=== PATIENT | male | born 1970 | race American Indian/Alaskan Native ===

== ENCOUNTER 2017-05-25 04:58 | Emergency (ER) | payer SELFPAY | END 2017-05-25 05:17 | disposition left against medical advice (07) | LOC: ED 04:58 | DX: R10.9 Unspecified abdominal pain (principal); Z53.21 Procedure and treatment not carried out due to patient leaving prior to being seen by health care provider ==

== ENCOUNTER 2017-05-25 07:04 | Emergency (ER) | payer OTHER ==
[2017-05-25] MEDS ORDERED: DILAUDID IV ONE (07:11)
[2017-05-25] MEDS ORDERED: TORADOL ONE (07:13)
[2017-05-25] MEDS ORDERED: DILAUDID IM ONE (07:14)
[2017-05-25] MEDS ORDERED: TORADOL IM ONE (07:14)
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
[2017-05-25] MEDS ORDERED: MORPHINE ONE (07:24)
[2017-05-25] MEDS ORDERED: HALDOL IM ONE (07:36)
[2017-05-25] MEDS ORDERED: MORPHINE IV ONE (07:36)
[2017-05-25 07:59] LABS: Anion Gap 24 mmol/L; Blood Urea Nitrogen 18 mg/dL (9-20); Calcium 9.2 mg/dL (8.4-10.2); Carbon Dioxide 18 mmol/L (22-30); Chloride 104.6 mmol/L (98-107); Glucose 112 mg/dL (75-100); Potassium 4.3 mmol/L (3.6-5.0); Sodium 142 mmol/L (137-145)
[2017-05-25 08:01] LABS: Mean Corpuscular HGB Conc 33 % (32-34); Mean Corpuscular Hemoglobin 31 pg (28-32); Mean Corpuscular Volume 94 fl (84-94); Platelet Count 207 K/mm3 (140-440); Red Blood Count 4.48 M/mm3 (3.65-5.03); Red Cell Distribution Width 13.8 % (13.2-15.2); White Blood Count 10.2 K/mm3 (4.5-11.0)
--- NOTE | 2017-05-25 08:27 | Cat Scan Report ---
FINAL REPORT PROCEDURE: CT ABDOMEN PELVIS WO CON TECHNIQUE: Computerized axial tomography of the abdomen and pelvis was performed without intravenous contrast. This study is performed without intravascular contrast material and its sensitivity for abdominal and pelvic pathology, including neoplasms, inflammation, abscess, free fluid, thrombosis, arterial dissection and infarction, is reduced compared with a contrast enhanced study. Oral contrast was not administered limiting evaluation of the bowel as well. HISTORY: flank pain COMPARISON: None FINDINGS: Visualized lower thorax: No significant abnormality. Liver: Normal size and attenuation. Spleen: Small 7.6 centimeters in maximal length. Gallbladder and biliary system: Normal. Pancreas: Normal. Adrenals: Normal. Kidneys: Normal. GI tract: Normal. Lymph nodes and mesentery: Normal. Vasculature: Normal. Bladder: Normal. Reproductive organs: Normal. Peritoneum: No free fluid. Musculoskeletal structures: Subtle right paracentral abdominal hernia containing fat, 9 millimeters in transverse diameter for example seen on series 2, image 110. Other: None. IMPRESSION: Subtle right anterior abdominal hernia containing fat. Smallish spleen.
[2017-05-25 11:10] LABS: Bilirubin,Urine NEG (Negative); Blood,Urine NEG (Negative); Ketones,Urine TR mg/dL (Negative); Leukocyte Esterase,Urine NEG (Negative); Nitrite,Urine NEG (Negative); Protein,Urine <15 mg/dL mg/dL (Negative); Urobilinogen,Urine < 2.0 mg/dL (<2.0)
[2017-05-25 13:12] VITALS: BP 157/64
== END 2017-05-25 12:50 | disposition home or self-care (01) ==
LOC: ED 07:04
DX: R10.9 Unspecified abdominal pain (principal); F17.210 Nicotine dependence, cigarettes, uncomplicated; J45.909 Unspecified asthma, uncomplicated; F12.90 Cannabis use, unspecified, uncomplicated; Z88.6 Allergy status to analgesic agent
CPT/HCPCS: 36415; 51702; 74176; 80048; 81001; 85027; 96372; 96374; 99285; J1170; J1630; J1885; J2270

== ENCOUNTER 2017-12-06 02:14 | Emergency (ER) | payer OTHER ==
[2017-12-06] MEDS ORDERED: ZOFRAN IV ONE (02:40)
[2017-12-06] MEDS ORDERED: MORPHINE IV ONE (02:40)
[2017-12-06] MEDS ORDERED: GEODON IM ONE (02:40)
[2017-12-06 02:49] VITALS: BP 150/88
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
== END 2017-12-06 06:26 | disposition home or self-care (01) ==
LOC: ED 02:14
DX: K31.84 Gastroparesis (principal); F17.200 Nicotine dependence, unspecified, uncomplicated
CPT/HCPCS: 96372; 96374; 96375; 99283; J2270; J2405; J3486

== ENCOUNTER 2020-12-07 11:08 | Emergency (ER) | payer OTHER ==
[2020-12-07 11:32] VITALS: BP 105/72
--- NOTE | 2020-12-07 11:37 | Event Note ---
ED Screening Note ED Screening Note: Patient presents for left-sided flank pain and left-sided abdominal pain that began at 4 AM this morning He states he has associated nausea and had 2 episodes of vomiting He has had this pain intermittently since before 2014 He reports it has been "awhile" since he has had the pain He denies any fever or diarrhea He states he had normal bowel movement this morning He reports a history of nephrolithiasis but scans in this emergency department has never shown nephrolithiasis He states he has seen a GI doctor around 2014 and had a EGD which he reports showed PUD He states that aspirin makes his stomach upset but otherwise has no true allergy This initial assessment/diagnostic orders/clinical plan/treatment(s) is/are subject to change based on patients health status, clinical progression and re- assessment by fellow clinical providers in the ED. Further treatment and workup at subsequent clinical providers discretion. Patient/guardian urged not to elope from the ED as their condition may be serious if not clinically assessed and managed. Initial orders include: Labs, UA
[2020-12-07] MEDS ORDERED: SODIUM CHLORIDE 0.9% 1000 ML 1,000 ML IV ONE (12:03)
[2020-12-07] MEDS ORDERED: PANTOPRAZOLE 40 MG INJ IV ONE (12:04)
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
[2020-12-07] MEDS ORDERED: MORPHINE 4 MG/1 ML INJ ONE (12:23)
[2020-12-07] MEDS ORDERED: ONDANSETRON 4 MG/2 ML INJ ONE (12:23)
[2020-12-07] MEDS ORDERED: MORPHINE 4 MG/1 ML INJ IV ONE (12:27)
[2020-12-07] MEDS ORDERED: ONDANSETRON 4 MG/2 ML INJ IV ONE (12:27)
--- NOTE | 2020-12-07 12:45 | Cat Scan Report ---
CT ABDOMEN AND PELVIS WITHOUT CONTRAST INDICATION / CLINICAL INFORMATION: ABDOMINAL PAIN/ left flank pain. TECHNIQUE: Axial CT images were obtained through the abdomen and pelvis without IV contrast. All CT scans at [facility] location are performed using CT dose reduction for ALARA by means of automated exposure control. COMPARISON: CT abdomen/pelvis dated 05/25/2017. FINDINGS: LOWER CHEST: No significant abnormality. LIVER: No significant abnormality. GALLBLADDER: No significant abnormality. PANCREAS: No significant abnormality. SPLEEN: No significant abnormality. ADRENALS: No significant abnormality. KIDNEYS / URETERS: No significant abnormality. No nephroureterolithiasis or obstructive uropathy. URINARY BLADDER: No significant abnormality. REPRODUCTIVE ORGANS: No significant abnormality. STOMACH / SMALL BOWEL: No significant abnormality. COLON: No significant abnormality. APPENDIX: No significant abnormality. PERITONEUM: No free fluid. No free air. No fluid collection. LYMPH NODES: No significant adenopathy. AORTA / ARTERIES: No significant abnormality. IVC / VEINS: No significant abnormality. SKELETAL SYSTEM: No significant abnormality. ADDITIONAL FINDINGS: None. IMPRESSION: 1. No acute abdominopelvic abnormality. Specifically, no nephroureterolithiasis or obstructive uropat hy. Signer Name: Chapo Ochoa MD Signed: 12/07/2020 12:40 PM Workstation Name: [id number]
[2020-12-07 13:37] LABS: Basophils % (Auto) 0.4 % (0.0-1.8); Hematocrit 42.4 % (35.5-45.6); Hemoglobin 14.3 gm/dl (11.8-15.2); Lymphocytes # (Auto) 1.1 K/mm3 (1.2-5.4); Lymphocytes % (Auto) 10.1 % (13.4-35.0); Mean Corpuscular HGB Conc 34 % (32-34); Mean Corpuscular Volume 95 fl (84-94); Monocytes # (Auto) 0.7 K/mm3 (0.0-0.8); Monocytes % (Auto) 6.2 % (0.0-7.3); Platelet Count 216 K/mm3 (140-440); Red Blood Count 4.48 M/mm3 (3.65-5.03); Red Cell Distribution Width 13.8 % (13.2-15.2)
[2020-12-07 13:54] LABS: Alanine Aminotransferase 20 units/L (7-56); Albumin 4.2 g/dL (3.9-5); BUN/Creatinine Ratio 10; Blood Urea Nitrogen 10 mg/dL (9-20); Calcium 9.3 mg/dL (8.4-10.2); Hemolysis Index 14
[2020-12-07] MEDS ORDERED: LIDOCAINE VISCOUS 2% 15 ML ORAL LIQD PO ONE (14:14)
[2020-12-07] MEDS ORDERED: ALUM-MAG HYDROXIDE-SIMETHICONE 200-200-20MG/5ML ORAL LIQD 30 ML PO ONE (14:14)
== END 2020-12-07 14:48 | disposition home or self-care (01) ==
LOC: ED 11:08
DX: R10.13 Epigastric pain (principal); J45.909 Unspecified asthma, uncomplicated; F17.200 Nicotine dependence, unspecified, uncomplicated; Z79.899 Other long term (current) drug therapy; Z88.6 Allergy status to analgesic agent
CPT/HCPCS: 36415; 74176; 80053; 83690; 85025; 96361; 96374; 96375; 99284; C9113; J2270; J2405; J7030

== ENCOUNTER 2021-01-18 12:51 | Inpatient (IN) | payer SELFPAY ==
[2021-01-18] MEDS ORDERED: HYDROmorphone 1 MG/1 ML INJ IV ONE ×2 (13:18→13:42)
[2021-01-18] MEDS ORDERED: SODIUM CHLORIDE 0.9% 1000 ML 1,000 ML IV ONE (13:18)
[2021-01-18] MEDS ORDERED: KETOROLAC 30 MG/1 ML INJ IV ONE (13:18)
[2021-01-18] MEDS ORDERED: ONDANSETRON 4 MG/2 ML INJ IV ONE (13:19)
[2021-01-18] MEDS ORDERED: IPRATROPIUM/ALBUTEROL SULFATE 3 ML AMPUL.NEB IH ONE (13:19)
[2021-01-18] MEDS ORDERED: PANTOPRAZOLE 40 MG INJ IV ONE (13:21)
[2021-01-18] MEDS ORDERED: AZITHROMYCIN/NS 500 MG/250 ML 500 MG/250 ML BAG IV ONE (14:05)
[2021-01-18] MEDS ORDERED: SODIUM CHLORIDE 0.9% 1000 ML IV SOLN IV ONE (14:05)
[2021-01-18] MEDS ORDERED: cefTRIAXone/NS 2 GM/100 ML 2 GM/100 ML BAG IV ONE (14:05)
[2021-01-18] MEDS ORDERED: dexAMETHasone 20 MG/5 ML VIAL IV ONE (14:06)
--- NOTE | 2021-01-18 14:12 | XRay Report ---
CHEST 1 VIEW 01/18/2021 1:04 PM INDICATION / CLINICAL INFORMATION: dyspnea. COMPARISON: None available. FINDINGS: SUPPORT DEVICES: None. HEART / MEDIASTINUM: No significant abnormality. LUNGS / PLEURA: Diffuse opacities are seen in bilateral lower lungs extending from the tyler No pneumo thorax. ADDITIONAL FINDINGS: No significant additional findings. IMPRESSION: 1. Bilateral lower lung opacities. Signer Name: Dixon Yao MD Signed: 01/18/2021 2:08 PM Workstation Name: [id number]
[2021-01-18 14:45] LABS: Hematocrit 40.5 % (35.5-45.6); Hemoglobin 13.7 gm/dl (11.8-15.2); Mean Corpuscular HGB Conc 34 % (32-34); Mean Corpuscular Volume 94 fl (84-94); Platelet Count 208 K/mm3 (140-440); Red Cell Distribution Width 13.7 % (13.2-15.2)
[2021-01-18] MEDS: HYDROmorphone 1 MG/1 ML INJ IV PRN ×2 (15:10→21:50)
[2021-01-18 15:27] LABS: Alanine Aminotransferase 98 units/L (7-56); Albumin 3.8 g/dL (3.9-5); BUN/Creatinine Ratio 17; Blood Urea Nitrogen 25 mg/dL (9-20); Calcium 8.4 mg/dL (8.4-10.2); Hemolysis Index 33
--- NOTE | 2021-01-18 17:10 | Cat Scan Report ---
CTA CHEST WITH CONTRAST INDICATION / CLINICAL INFORMATION: Hypoxia. TECHNIQUE: Axial CT images were obtained through the chest after injection of IV contrast. 3 plane IL P and/or 3D reconstructions were produced. All CT scans at this location are performed using CT dose reduction for ALARA by means of automated exposure control. COMPARISON: None available. FINDINGS: PULMONARY ARTERIES: Not well evaluated due to arterial phase imaging. THORACIC AORTA: Thoracic aorta is normal in caliber. No evidence of dissection. HEART: No cardiac enlargement. No pericardial effusion. ADENOPATHY: Shotty left paratracheal and bilateral hilar lymph nodes are likely reactive. LUNGS/PLEURA: There is mild paraseptal emphysema in the apices. Extensive ground glass opacities are present throughout the lungs, preferentially involving the lung bases, with associated interlobular s eptal thickening. There is relative sparing of the upper lungs with preferential subpleural involveme nt. There are patchy airspace consolidation is noted within the right lower lobe. No pleural effusion or pneumothorax. ADDITIONAL FINDINGS: None. UPPER ABDOMEN: Findings of the upper abdomen are detailed centrally. SKELETAL STRUCTURES: No significant osseous abnormality. IMPRESSION: Extensive basilar predominant groundglass opacities with interlobular septal thickening and developin g airspace consolidation of the right lower lobe. Findings are somewhat nonspecific. Differential inc ludes pulmonary alveolar proteinosis, pulmonary edema, diffuse alveolar hemorrhage, or atypical infec tion, to include pneumocystis and mycoplasma. Signer Name: Ángel Macias MD Signed: 01/18/2021 5:06 PM Workstation Name: [id number]
--- NOTE | 2021-01-18 17:14 | Cat Scan Report ---
CT abdomen pelvis wo con INDICATION: left flank pain. COMPARISON: None TECHNIQUE: Abdominal and pelvic CT exam performed. All CT scans at this location are performed using CT dose reduction for ALARA by means of automated exposure control. FINDINGS: CT ABDOMEN and PELVIS: Lung Bases: Diffuse groundglass opacities with associated interlobular septal thickening with more fo yousif consolidation seen within the right lower lobe Liver: No significant abnormality. Biliary: No significant abnormality. Spleen: No significant abnormality. Pancreas: No significant abnormality. Adrenals: No significant abnormality. Kidneys: No significant abnormality. Lymphatics: No lymphadenopathy. Vasculature: No significant abnormality. Bowel: No significant abnormality. Normal appendix. Pelvis: No significant abnormality. Osseous Structures: No aggressive osseous lesion. Additional Findings: None IMPRESSION: 1. No significant abnormality of the abdomen or pelvis. 2. Interstitial thickening with ground glass opacities which is nonspecific. But differential conside ration include pulmonary alveolar proteinosis, increased capillary permeability edema(ARDS), atypical infections including pneumocystis and mycoplasma, and diffuse alveolar hemorrhage. Signer Name: Lexx Marquez MD Signed: 01/18/2021 5:10 PM Workstation Name: [id number]
[2021-01-18] MEDS ORDERED: ACETAMINOPHEN 325 MG TAB PO PRN ×2 (17:19→17:24)
--- NOTE | 2021-01-18 17:19 | History and Physical Report ---
History of Present Illness Chief complaint: My stomach is bothering me History of present illness: 50 YO Male with PUD, Asthma, Nephrolithiasis, Nicotine Dependence presents to ED for evaluation. Pt reports "My left side hurts". Pt states that he has experienced left flank pain over the past 2 weeks with worsening symptoms over the past several days. EMS was notified and upon arrival the patient was found to be in distress and subsequently transported to [facility] for further care and evaluation of the aforementioned symptoms. The patient was seen and evaluated in the emergency department. All lab and imaging studies reviewed. The patient was found to have a pulse oximetry of 84% on room air which is consistent with acute hypoxemic respiratory failure. The patient was placed on submental oxygen with improvement in symptoms. The patient was also found to have bilateral pneumonia, sepsis, acute kidney injury. Patient admitted to medical floor and initiated on sepsis protocol as well as pneumonia protocol as well as coronavirus protocol. Patient denies fever, chills, chest pain, palpitation, productive cough, skin rash, recent ill contacts, or known exposure to COVID-19. No prior admission for review. All medication listed at time of admission has been reconciled. Past History Past Medical History: GERD, other (See HPI) Past Surgical History: Other (Right ankle surgery) Social history: single, smoking Family history: hypertension Medications and Allergies Allergies Allergy/AdvReac Type Severity Reaction Status Date / Time aspirin Allergy "it makes Verified 12/07/20 11:27 my stomach upset" Home Medications Medication Instructions Recorded Confirmed Last Taken Type Acetaminophen [Tylenol Arthritis] 650 mg PO Q6HR PRN #30 tablet.er 05/25/17 Unknown Rx Dicyclomine [Bentyl] 10 mg PO QID PRN #20 capsule 05/25/17 Unknown Rx Ondansetron [Zofran Odt] 4 mg PO QID PRN #20 tab.rapdis 05/25/17 Unknown Rx Dicyclomine [Bentyl] 20 mg PO QID #12 tablet 12/06/17 Unknown Rx Esomeprazole Magnesium [NexIUM] 40 mg PO QDAY #30 capsule. 12/07/20 Unknown Rx Ondansetron [Zofran Odt] 4 mg PO Q8HR PRN #14 tab.rapdis 12/07/20 Unknown Rx Review of Systems Constitutional: no weight loss, no weight gain, no fever, no chills Ears, nose, mouth and throat: no ear pain, no ear discharge, no tinnitis, no nose pain, no nasal congestion Cardiovascular: no chest pain, no palpitations, no rapid/irregular heart beat, no syncope, no lightheadedness Respiratory: no cough, no cough with sputum, no excessive sputum, no hemoptysis Genitourinary Male: flank pain, no discharge, no urinary frequency, no urinary hesitancy Rectal: no pain, no incontinence, no bleeding Musculoskeletal: no neck pain, no shooting arm pain, no arm numbness/tingling, no shooting leg pain, no leg numbness/tingling, no redness of joints Integumentary: no rash, no redness, no sores, no wounds, no boils Neurological: no transient paralysis, no paralysis, no numbness, no tingling, no syncope, no tremors, no ataxia Psychiatric: no anxiety, no memory loss, no change in sleep habits, no sleep disturbances, no hypersomnia, no change in appetite, no suicidal ideation, no disorientation Endocrine: no cold intolerance, no polyphagia, no excessive thirst, no polyuria, no nocturia, no excessive sweating Hematologic/Lymphatic: no easy bruising, no easy bleeding Allergic/Immunologic: no urticaria, no allergic rhinitis Exam - Constitutional Vitals: Temp Pulse Resp BP Pulse Ox 98 F 109 H 18 101/57 98 01/18/21 13:12 01/18/21 16:00 01/18/21 16:00 01/18/21 16:00 01/18/21 16:00 General appearance: Present: mild distress - EENT Eyes: Present: PERRL ENT: hearing intact, clear oral mucosa - Neck Neck: Present: supple, normal ROM - Respiratory Respiratory effort: labored, accessory muscle use Respiratory: bilateral: diminished, rhonchi - Cardiovascular Heart Sounds: Present: S1 & S2. Absent: rub, click - Extremities Extremities: pulses symmetrical, No edema Peripheral Pulses: abnormal (Capillary refill greater than 3.5 seconds) - Abdominal General gastrointestinal: Present: soft, non-tender, non-distended, normal bowel sounds Male genitourinary: Present: normal - Integumentary Integumentary: Present: clear, warm, dry - Musculoskeletal Musculoskeletal: gait normal, strength equal bilaterally - Psychiatric Psychiatric: appropriate mood/affect, intact judgment & insight - Neurologic Neurologic: CNII-XII intact, moves all extremities Results - Labs CBC & Chem 7: 01/18/21 13:32 01/18/21 15:03 Labs: Abnormal lab results 01/18/21 01/18/21 01/18/21 Range/Units 13:32 14:47 14:47 WBC 20.9 H (4.5-11.0) K/mm3 D-Dimer 869.63 H (0-234) ng/mlDDU Sodium (137-145) mmol/L Carbon Dioxide (22-30) mmol/L BUN (9-20) mg/dL Creatinine (0.8-1.3) mg/dL Glucose 102 H (75-100) mg/dL Ferritin (30.0-300.0) ng/mL AST (5-40) units/L ALT (7-56) units/L Alkaline Phosphatase (35-129) units/L Lactate Dehydrogenase 949 H (91-180) units/L C-Reactive Protein 23.00 H (0.00-1.30) mg/dL Albumin (3.9-5) g/dL Lipase (13-60) units/L 01/18/21 01/18/21 Range/Units 14:47 15:03 WBC (4.5-11.0) K/mm3 D-Dimer (0-234) ng/mlDDU Sodium 135 L (137-145) mmol/L Carbon Dioxide 21 L (22-30) mmol/L BUN 25 H (9-20) mg/dL Creatinine 1.5 H (0.8-1.3) mg/dL Glucose (75-100) mg/dL Ferritin 502.1 H (30.0-300.0) ng/mL AST 304 H (5-40) units/L ALT 98 H (7-56) units/L Alkaline Phosphatase 139 H (35-129) units/L Lactate Dehydrogenase (91-180) units/L C-Reactive Protein (0.00-1.30) mg/dL Albumin 3.8 L (3.9-5) g/dL Lipase 7 L (13-60) units/L Assessment and Plan - Patient Problems (1) Sepsis Current Visit: Yes Status: Acute Plan to address problem: Sepsis protocol: Chest x-ray, CBC, CMP, urinalysis, IV antibiotic therapy, IV fluid resuscitation therapy, serial lactic acid level, maintain mean arterial pressure greater than or equal to 65, blood culture, rapid HIV (2) Acute respiratory failure with hypoxia Current Visit: Yes Status: Acute Plan to address problem: Supplemental oxygen, pulse oximetry, nebulizer therapy, chest x-ray, CT scan chest, pulmonary toilet, if patient is unable to maintain pulse oximetry greater than 80% on submental oxygen will transition patient to high flow submental oxygen. (3) Bilateral pneumonia Current Visit: Yes Status: Acute Plan to address problem: Pneumonia protocol: Chest x-ray, CBC, CMP, CT scan chest, IV antibiotic therapy, supplemental oxygen, pulse oximetry, nebulizer therapy, blood cultures. (4) Elevated liver enzymes Current Visit: Yes Status: Acute Plan to address problem: Supportive care, repeat CMP in a.m. (5) DVT prophylaxis Current Visit: Yes Status: Acute Plan to address problem: SCD to bilateral lower extremities while in bed, prophylactic anticoagulation
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
[2021-01-18 18:40] LABS: Total Cells Counted 100
[2021-01-18 18:43] LABS: Platelet Estimate Consistent w Auto; RBC Morphology Normal
[2021-01-18 18:54] LABS: Bilirubin,Urine NEG (Negative); Blood,Urine SM (Negative); Color,Urine Yellow (Yellow); Mucus,Urine 1+ /HPF; Urobilinogen,Urine < 2.0 mg/dL (<2.0)
[2021-01-18] MEDS: methylPREDNISolone Sod Succinate 40 MG/1 ML INJ IV SCH (21:50)
[2021-01-18] MEDS: HEPARIN 5,000 UNIT/1 ML VIAL SUB-Q SCH (21:50)
[2021-01-18] MEDS: ZINC SULFATE 220 MG CAP PO SCH (23:43)
[2021-01-18] MEDS: ASCORBIC ACID 500 MG TAB PO SCH (23:43)
[2021-01-19] MEDS: ONDANSETRON 4 MG/2 ML INJ IV PRN ×3 (00:17→14:47)
[2021-01-19] MEDS ORDERED: HYDROmorphone 1 MG/1 ML INJ IV ONE ×2 (00:44→01:58)
[2021-01-19] MEDS ORDERED: KETOROLAC 30 MG/1 ML INJ IV ONE ×2 (01:46→04:41)
[2021-01-19] MEDS ORDERED: ALUM-MAG HYDROXIDE-SIMETHICONE 200-200-20MG/5ML ORAL LIQD 30 ML PO ONE (02:07)
--- NOTE | 2021-01-19 03:58 | Cat Scan Report ---
CT ABDOMEN AND PELVIS WITHOUT CONTRAST INDICATION: Severe LEFT flank pain x several weeks. Hx of a Duodenal Ulcer.. TECHNIQUE: Axial CT images were obtained through the abdomen and pelvis without IV contrast. All CT scans at [facility] location are performed using CT dose reduction for ALARA by means of automated exposure control. COMPARISON: CT abdomen pelvis 01/18/2021 FINDINGS: LOWER CHEST: Extensive bilateral groundglass opacities both lower lobes with some parenchymal consoli dation in the right lower lobe, unchanged. LIVER: No significant abnormality. GALLBLADDER: There is excretion of contrast. BILE DUCTS: No significant abnormality. PANCREAS: No significant abnormality. SPLEEN: No significant abnormality. ADRENALS: No significant abnormality. RIGHT KIDNEY and URETER: No significant abnormality. LEFT KIDNEY and URETER: No significant abnormality. STOMACH and SMALL BOWEL: No significant abnormality. COLON: Small amount of residual barium contrast within cecum. APPENDIX: No significant abnormality. PERITONEUM: No free fluid. No free air. No fluid collection. LYMPH NODES: No significant adenopathy. AORTA and ARTERIES: No significant abnormality. IVC and VEINS: No significant abnormality. URINARY BLADDER: Contrast noted within urinary bladder. REPRODUCTIVE ORGANS: No significant abnormality. ADDITIONAL FINDINGS: None. SKELETAL SYSTEM: No significant abnormality. IMPRESSION: 1. Extensive bibasilar groundglass pulmonary opacities with mild parenchymal disease right lower lobe , unchanged. 2. No acute inflammatory process or pneumoperitoneum . No detrimental change since yesterday Signer Name: Ty Odell MD Signed: 01/19/2021 3:53 AM Workstation Name: [id number]
[2021-01-19] MEDS ORDERED: METOCLOPRAMIDE 10 MG/2 ML INJ IV ONE (05:25)
[2021-01-19] MEDS: methylPREDNISolone Sod Succinate 40 MG/1 ML INJ IV SCH ×3 (05:26→21:07)
[2021-01-19] MEDS: HYDROmorphone 1 MG/1 ML INJ IV PRN ×3 (07:39→22:03)
[2021-01-19] MEDS ORDERED: LORazepam 2 MG/ML VIAL IV ONE (08:00)
[2021-01-19] MEDS ORDERED: cefTRIAXone/NS 2 GM/100 ML 2 GM/100 ML BAG IV ONE (09:00)
[2021-01-19] MEDS ORDERED: chlordiazePOXIDE 25 MG CAP PO PRN (10:07)
--- NOTE | 2021-01-19 10:17 | Progress Note ---
Assessment and Plan Assessment and plan: 50 YO Male with PUD, Asthma, Nephrolithiasis, Nicotine Dependence presents to ED for evaluation. Pt reports "My left side hurts". Pt states that he has experienced left flank pain over the past 2 weeks with worsening symptoms over the past several days. EMS was notified and upon arrival the patient was found to be in distress and subsequently transported to [facility] for further care and evaluation of the aforementioned symptoms. The patient was seen and evaluated in the emergency department. All lab and imaging studies reviewed. The patient was found to have a pulse oximetry of 84% on room air which is consistent with acute hypoxemic respiratory failure. The patient was placed on submental oxygen with improvement in symptoms. The patient was also found to have bilateral pneumonia, sepsis, acute kidney injury. Patient admitted to medical floor and initiated on sepsis protocol as well as pneumonia protocol as well as coronavirus protocol. Patient denies fever, chills, chest pain, palpitation, productive cough, skin rash, recent ill contacts, or known exposure to COVID-19. No prior admission for review. All medication listed at time of admission has been reconciled. CT abdomen and pelvis IMPRESSION: 1. Extensive bibasilar groundglass pulmonary opacities with mild parenchymal disease right lower lobe, unchanged. 2. No acute inflammatory process or pneumoperitoneum . No detrimental change since yesterday CT angio chest: IMPRESSION: Extensive basilar predominant groundglass opacities with interlobular septal thickening and developing airspace consolidation of the right lower lobe. Findings are somewhat nonspecific. Differential includes pulmonary alveolar proteinosis, pulmonary edema, diffuse alveolar hemorrhage, or atypical infection, to include pneumocystis and mycoplasma. 01/19: Patient was started on sepsis protocol due to meeting at least 2 of the sepsis criteria with SIRS. Although no fever will continue antibiotics will obtain ID consult for atypical pneumonia while we await for COVID-19 testing. Also requested for records from [facility] and also from [facility]. Patient also has significant alcohol use 15 minutes of counseling has been provided to him we will start him on CIWA protocol. Plan discussed with nursing staff and they will assist with obtaining medical records from both facilities. (1) Sepsis Current Visit: Yes Status: Acute Plan to address problem: Sepsis protocol: Chest x-ray, CBC, CMP, urinalysis, IV antibiotic therapy, IV fluid resuscitation therapy, serial lactic acid level, maintain mean arterial pressure greater than or equal to 65, blood culture, rapid HIV (2) Acute respiratory failure with hypoxia Current Visit: Yes Status: Acute Plan to address problem: Supplemental oxygen, pulse oximetry, nebulizer therapy, chest x-ray, CT scan chest, pulmonary toilet, if patient is unable to maintain pulse oximetry greater than 80% on submental oxygen will transition patient to high flow submental oxygen. (3) Bilateral pneumonia Current Visit: Yes Status: Acute Plan to address problem: Pneumonia protocol: Chest x-ray, CBC, CMP, CT scan chest, IV antibiotic therapy, supplemental oxygen, pulse oximetry, nebulizer therapy, blood cultures. (4) Elevated liver enzymes Current Visit: Yes Status: Acute Plan to address problem: Supportive care, repeat CMP in a.m. (5) EtOH use disorder with possible underlying withdrawal (6)DVT prophylaxis Current Visit: Yes Status: Acute Plan to address problem: SCD to bilateral lower extremities while in bed, prophylactic anticoagula History Interval history: Patient seen and examined this morning was anxious and agitated although later calmed down noted hypoxia requiring nonrebreather. Patient informs me that 3 years ago he was admitted to [facility] and stayed 8 weeks for similar presentation he complains of abdominal pain and left flank pain. Also difficulty breathing but could not tell me what his diagnosis was at the time. He also reports that he has been to the ER twice in the last 2 weeks [facility] and also here. Hospitalist Physical - Physical exam Narrative exam: VITAL SIGNS: Reviewed. GENERAL: The patient appears normally developed, Vital signs as documented. HEAD: No signs of head trauma. EYES: Pupils are equal. Extraocular motions intact. EARS: Hearing grossly intact. MOUTH: Oropharynx is normal. NECK: No adenopathy, no JVD. CHEST: Chest with diminished breath sounds bilaterally. Tachypneic no wheezes, rales, or rhonchi. CARDIAC: Regular rate and rhythm. S1 and S2, without murmurs, gallops, or rubs. VASCULAR: No Edema. Peripheral pulses normal and equal in all extremities. ABDOMEN: Soft, non tender and non distended. No rebound or guarding, and no masses palpated. Bowel Sounds normal. MUSCULOSKELETAL: Good range of motion of all major joints. Extremities without clubbing, cyanosis or edema. NEUROLOGIC EXAM: Alert and oriented x 3 No focal sensory or strength deficits. Speech normal. Follows commands. PSYCHIATRIC: Mood anxious l. SKIN: detail exam as documented in skin assessment - Constitutional Vitals: Temp Pulse Resp BP Pulse Ox 97.7 F 99 H 22 129/78 100 01/19/21 04:05 01/19/21 05:26 01/19/21 05:26 01/19/21 05:26 01/19/21 08:36 General appearance: Present: mild distress Results - Labs CBC & Chem 7: 01/18/21 13:32 01/18/21 15:03 Labs: Laboratory Last Values WBC 20.9 K/mm3 (4.5-11.0) H 01/18/21 13:32 RBC 4.30 M/mm3 (3.65-5.03) 01/18/21 13:32 Hgb 13.7 gm/dl (11.8-15.2) 01/18/21 13:32 Hct 40.5 % (35.5-45.6) 01/18/21 13:32 MCV 94 fl (84-94) 01/18/21 13:32 MCH 32 pg (28-32) 01/18/21 13:32 MCHC 34 % (32-34) 01/18/21 13:32 RDW 13.7 % (13.2-15.2) 01/18/21 13:32 Plt Count 208 K/mm3 (140-440) 01/18/21 13:32 Add Manual Diff Complete 01/18/21 13:32 Total Counted 100 01/18/21 13:32 Seg Neutrophils % [employer] And Seafood Clerk 01/18/21 13:32 Seg Neuts % (Manual) 92.0 % (40.0-70.0) H 01/18/21 13:32 Lymphocytes % (Manual) 5.0 % (13.4-35.0) L 01/18/21 13:32 Monocytes % (Manual) 3.0 % (0.0-7.3) 01/18/21 13:32 Nucleated RBC % Not Reportable 01/18/21 13:32 Seg Neutrophils # Man 19.2 K/mm3 (1.8-7.7) H 01/18/21 13:32 Band Neutrophils # 0.0 K/mm3 01/18/21 13:32 Lymphocytes # (Manual) 1.0 K/mm3 (1.2-5.4) L 01/18/21 13:32 Abs React Lymphs (Man) 0.0 K/mm3 01/18/21 13:32 Monocytes # (Manual) 0.6 K/mm3 (0.0-0.8) 01/18/21 13:32 Eosinophils # (Manual) 0.0 K/mm3 (0.0-0.4) 01/18/21 13:32 Basophils # (Manual) 0.0 K/mm3 (0.0-0.1) 01/18/21 13:32 Metamyelocytes # 0.0 K/mm3 01/18/21 13:32 Myelocytes # 0.0 K/mm3 01/18/21 13:32 Promyelocytes # 0.0 K/mm3 01/18/21 13:32 Blast Cells # 0.0 K/mm3 01/18/21 13:32 WBC Morphology Not Reportable 01/18/21 13:32 Hypersegmented Neuts Not Reportable 01/18/21 13:32 Hyposegmented Neuts Not Reportable 01/18/21 13:32 Hypogranular Neuts Not Reportable 01/18/21 13:32 Smudge Cells Not Reportable 01/18/21 13:32 Toxic Granulation Not Reportable 01/18/21 13:32 Toxic Vacuolation Not Reportable 01/18/21 13:32 Dohle Bodies Not Reportable 01/18/21 13:32 Pelger-Huet Anomaly Not Reportable 01/18/21 13:32 Ricco Rods Not Reportable 01/18/21 13:32 Platelet Estimate Consistent w auto 01/18/21 13:32 Clumped Platelets Not Reportable 01/18/21 13:32 Plt Clumps, EDTA Not Reportable 01/18/21 13:32 Large Platelets Not Reportable 01/18/21 13:32 Giant Platelets Not Reportable 01/18/21 13:32 Platelet Satelliting Not Reportable 01/18/21 13:32 Plt Morphology Comment Not Reportable 01/18/21 13:32 RBC Morphology Normal 01/18/21 13:32 Dimorphic RBCs Not Reportable 01/18/21 13:32 Polychromasia Not Reportable 01/18/21 13:32 Hypochromasia Not Reportable 01/18/21 13:32 Poikilocytosis Not Reportable 01/18/21 13:32 Anisocytosis Not Reportable 01/18/21 13:32 Microcytosis Not Reportable 01/18/21 13:32 Macrocytosis Not Reportable 01/18/21 13:32 Spherocytes Not Reportable 01/18/21 13:32 Pappenheimer Bodies Not Reportable 01/18/21 13:32 Sickle Cells Not Reportable 01/18/21 13:32 Target Cells Not Reportable 01/18/21 13:32 Tear Drop Cells Not Reportable 01/18/21 13:32 Ovalocytes Not Reportable 01/18/21 13:32 Helmet Cells Not Reportable 01/18/21 13:32 Baez-Ubly Bodies Not Reportable 01/18/21 13:32 Converse Rings Not Reportable 01/18/21 13:32 Washburn Cells Not Reportable 01/18/21 13:32 Bite Cells Not Reportable 01/18/21 13:32 Crenated Cell Not Reportable 01/18/21 13:32 Elliptocytes Not Reportable 01/18/21 13:32 Acanthocytes (Spur) Not Reportable 01/18/21 13:32 Rouleaux Not Reportable 01/18/21 13:32 Hemoglobin C Crystals Not Reportable 01/18/21 13:32 Schistocytes Not Reportable 01/18/21 13:32 Malaria parasites Not Reportable 01/18/21 13:32 Danny Bodies Not Reportable 01/18/21 13:32 Hem Pathologist Commnt No 01/18/21 13:32 D-Dimer 869.63 ng/mlDDU (0-234) H 01/18/21 14:47 Sodium 135 mmol/L (137-145) L 01/18/21 15:03 Potassium 4.5 mmol/L (3.6-5.0) 01/18/21 15:03 Chloride 98.0 mmol/L (98-107) 01/18/21 15:03 Carbon Dioxide 21 mmol/L (22-30) L 01/18/21 15:03 Anion Gap 21 mmol/L 01/18/21 15:03 BUN 25 mg/dL (9-20) H 01/18/21 15:03 Creatinine 1.5 mg/dL (0.8-1.3) H 01/18/21 15:03 Estimated GFR > 60 ml/min 01/18/21 15:03 BUN/Creatinine Ratio 17 % 01/18/21 15:03 Glucose 99 mg/dL (75-100) 01/18/21 15:03 Lactic Acid 1.30 mmol/L (0.7-2.0) 01/18/21 21:36 Calcium 8.4 mg/dL (8.4-10.2) 01/18/21 15:03 Ferritin 502.1 ng/mL (30.0-300.0) H 01/18/21 14:47 Total Bilirubin 1.10 mg/dL (0.1-1.2) 01/18/21 15:03 AST 304 units/L (5-40) H 01/18/21 15:03 ALT 98 units/L (7-56) H 01/18/21 15:03 Alkaline Phosphatase 139 units/L (35-129) H 01/18/21 15:03 Lactate Dehydrogenase 949 units/L (91-180) H 01/18/21 14:47 C-Reactive Protein 23.00 mg/dL (0.00-1.30) H 01/18/21 14:47 Total Protein 6.8 g/dL (6.3-8.2) 01/18/21 15:03 Albumin 3.8 g/dL (3.9-5) L 01/18/21 15:03 Albumin/Globulin Ratio 1.3 % 01/18/21 15:03 Lipase 7 units/L (13-60) L 01/18/21 15:03 Procalcitonin 1.52 ng/mL (<0.15) 01/18/21 14:47 Urine Color Yellow (Yellow) 01/18/21 18:31 Urine Turbidity Clear (Clear) 01/18/21 18:31 Urine pH 5.0 (5.0-7.0) 01/18/21 18:31 Ur Specific [place] 1.050 (1.003-1.030) H 01/18/21 18:31 Urine Protein 30 mg/dl mg/dL (Negative) 01/18/21 18: Urine Glucose (UA) Neg mg/dL (Negative) 01/18/21 18: Urine Ketones 20 mg/dL (Negative) 01/18/21 18: Urine Blood Sm (Negative) 01/18/21 18:31 Urine Nitrite Neg (Negative) 01/18/21 18:31 Urine Bilirubin Neg (Negative) 01/18/21 18:31 Urine Urobilinogen < 2.0 mg/dL (<2.0) 01/18/21 18:31 Ur Leukocyte Esterase Neg (Negative) 01/18/21 18:31 Urine WBC (Auto) 1.0 /HPF (0.0-6.0) 01/18/21 18:31 Urine RBC (Auto) 3.0 /HPF (0.0-6.0) 01/18/21 18:31 U Epithel Cells (Auto) 1.0 /HPF (0-13.0) 01/18/21 18:31 Urine Mucus 1+ /HPF 01/18/21 18:31 HIV 1&2 Antibody Rapid Non react (Non React) 01/18/21 21:36 HIV P24 Antigen Non react (Non React) 01/18/21 21:36 Microbiology: Microbiology 01/18/21 14:52 Peripheral/Venous Blood Culture - Preliminary Culture in Progress 01/18/21 14:47 Peripheral/Venous Blood Culture - Preliminary Culture in Progress Gomes/IV: Voiding Method Urinal Active Medications - Current Medications Current Medications: Generic Name Dose Route Start Last Admin Trade Name Freq PRN Reason Stop Dose Admin Acetaminophen 650 mg 01/18/21 17:19 Acetaminophen 325 Mg Tab PO Q4H PRN Pain MILD(1-3)/Fever >100.5/[place] Albuterol 2.5 mg 01/18/21 17:19 Albuterol 2.5 Mg/3 Ml Nebu IH Q4HRT PRN Shortness Of Breath Ascorbic Acid 500 mg 01/18/21 22:00 01/18/21 23:43 Ascorbic Acid 500 Mg Tab PO 500 mg BID LEE Administration Chlordiazepoxide HCl 50 mg 01/19/21 10:07 Chlordiazepoxide 25 Mg Cap PO Q1HR PRN [facility]-Ar 8-15 Cholecalciferol 1,000 unit 01/19/21 10:00 Cholecalciferol (Vit D3) 1000 Unit (25 Mcg) Tab PO QDAY [facility] Cyanocobalamin 1,000 mcg 01/19/21 11:00 Cyanocobalamin (Vit B-12) 1000 Mcg Tab PO QDAY LEE Folic Acid 1 mg 01/19/21 11:00 Folic Acid 1 Mg Tab PO QDAY LEE Heparin Sodium (Porcine) 5,000 unit 01/18/21 22:00 01/18/21 21:50 Heparin 5,000 Unit/1 Ml Vial SUB-Q 5,000 unit Q12HR LEE Administration Hydromorphone HCl 0.25 mg 01/18/21 17:24 01/19/21 07:39 Hydromorphone 1 Mg/1 Ml Inj IV 0.25 mg Q4H PRN Administration Pain, Moderate (4-6) Azithromycin 500 mg in 250 mls @ 250 mls/hr 01/19/21 14:00 Zithromax/Ns IV 01/22/21 14:59 Q24H [facility] Protocol Ceftriaxone Sodium 2 gm in 100 mls @ 200 mls/hr 01/19/21 10:00 Rocephin/Ns 2 Gm/100 Ml IV 01/22/21 10:29 Q24HR [facility] Protocol Lorazepam 2 mg 01/19/21 10:07 Lorazepam 2 Mg/Ml Vial IV Q4H PRN [facility]-Ar 8-15 Methylprednisolone Sodium Succinate 40 mg 01/18/21 22:00 01/19/21 05:26 Methylprednisolone Sod Succinate 40 Mg/1 Ml Inj IV 40 mg Q8H LEE Administration Ondansetron HCl 4 mg 01/18/21 17:19 01/19/21 07:39 Ondansetron 4 Mg/2 Ml Inj IV 4 mg Q8H PRN Administration Nausea And Vomiting Sodium Chloride 10 ml 01/18/21 22:00 01/18/21 21:50 Sodium Chloride 0.9% 10 Ml Flush Syringe IV 10 ml BID LEE Administration Sodium Chloride 10 ml 01/18/21 17:19 Sodium Chloride 0.9% 10 Ml Flush Syringe IV PRN PRN LINE FLUSH Thiamine HCl 100 mg 01/19/21 11:00 Thiamine 100 Mg Tab PO QDAY LEE Zinc Sulfate 220 mg 01/18/21 22:00 01/18/21 23:43 Zinc Sulfate 220 Mg Cap PO 220 mg BID LEE Administration
[2021-01-19] MEDS: cefTRIAXone/NS 2 GM/100 ML 2 GM/100 ML BAG IV SCH (10:38)
[2021-01-19] MEDS: ASCORBIC ACID 500 MG TAB PO SCH ×3 (10:39→21:22)
[2021-01-19] MEDS: CHOLECALCIFEROL (VIT D3) 1000 UNIT (25 mcg) TAB PO SCH (10:39)
[2021-01-19] MEDS: FOLIC ACID 1 MG TAB PO SCH (10:39)
[2021-01-19] MEDS: ZINC SULFATE 220 MG CAP PO SCH ×3 (10:39→21:22)
[2021-01-19] MEDS: CYANOCOBALAMIN (VIT B-12) 1000 MCG TAB PO SCH (10:39)
[2021-01-19] MEDS: HEPARIN 5,000 UNIT/1 ML VIAL SUB-Q SCH ×2 (10:40→21:07)
[2021-01-19] MEDS: THIAMINE 100 MG TAB PO SCH (10:40)
[2021-01-19 12:19] LABS: Mean Corpuscular HGB Conc 33 % (32-34); Mean Corpuscular Volume 94 fl (84-94); Platelet Count 213 K/mm3 (140-440); Red Blood Count 4.45 M/mm3 (3.65-5.03); Red Cell Distribution Width 13.8 % (13.2-15.2)
--- NOTE | 2021-01-19 12:44 | Consultation ---
History of Present Illness Consult date: 01/19/21 Requesting physician: ALEX[facility]RIA SHERIFF Reason for consult: pneumonia, other (Acute Hypoxemic Respiratory Failure) History of present illness: PULMONARY/CCM CONSULT NOTE (Full dictation # [id number]) Please see dictated notes for full details Past History Past Medical History: GERD, other (See HPI) Past Surgical History: Other (Right ankle surgery) Social history: single, smoking Family history: hypertension Medications and Allergies Allergies Allergy/AdvReac Type Severity Reaction Status Date / Time aspirin Allergy "it makes Verified 12/07/20 11:27 my stomach upset" Home Medications Medication Instructions Recorded Confirmed Last Taken Type Acetaminophen [Tylenol Arthritis] 650 mg PO Q6HR PRN #30 tablet.er 05/25/17 Unknown Rx Dicyclomine [Bentyl] 10 mg PO QID PRN #20 capsule 05/25/17 Unknown Rx Ondansetron [Zofran Odt] 4 mg PO QID PRN #20 tab.rapdis 05/25/17 Unknown Rx Dicyclomine [Bentyl] 20 mg PO QID #12 tablet 12/06/17 Unknown Rx Esomeprazole Magnesium [NexIUM] 40 mg PO QDAY #30 capsule. 12/07/20 Unknown Rx Ondansetron [Zofran Odt] 4 mg PO Q8HR PRN #14 tab.rapdis 12/07/20 Unknown Rx Active Meds: Active Medications Acetaminophen (Acetaminophen 325 Mg Tab) 650 mg PO Q4H PRN PRN Reason: Pain MILD(1-3)/Fever >100.5/[place] Albuterol (Albuterol 2.5 Mg/3 Ml Nebu) 2.5 mg IH Q4HRT PRN PRN Reason: Shortness Of Breath Ascorbic Acid (Ascorbic Acid 500 Mg Tab) 500 mg PO BID [facility] Last Admin: 01/19/21 10:39 Dose: 500 mg Documented by: Chlordiazepoxide HCl (Chlordiazepoxide 25 Mg Cap) 50 mg PO Q1HR PRN PRN Reason: CIWA-Ar 8-15 Cholecalciferol (Cholecalciferol (Vit D3) 1000 Unit (25 Mcg) Tab) 1,000 unit PO QDAY [facility] Last Admin: 01/19/21 10:39 Dose: 1,000 unit Documented by: Cyanocobalamin (Cyanocobalamin (Vit B-12) 1000 Mcg Tab) 1,000 mcg PO QDAY [facility] Last Admin: 01/19/21 10:39 Dose: 1,000 mcg Documented by: Folic Acid (Folic Acid 1 Mg Tab) 1 mg PO QDAY [facility] Last Admin: 01/19/21 10:39 Dose: 1 mg Documented by: Heparin Sodium (Porcine) (Heparin 5,000 Unit/1 Ml Vial) 5,000 unit SUB-Q Q12HR [facility] Last Admin: 01/19/21 10:40 Dose: 5,000 unit Documented by: Hydromorphone HCl (Hydromorphone 1 Mg/1 Ml Inj) 0.25 mg IV Q4H PRN PRN Reason: Pain, Moderate (4-6) Last Admin: 01/19/21 07:39 Dose: 0.25 mg Documented by: Azithromycin (Zithromax/Ns) 500 mg in 250 mls @ 250 mls/hr IV Q24H [facility]; Protocol Stop: 01/22/21 14:59 Ceftriaxone Sodium (Rocephin/Ns 2 Gm/100 Ml) 2 gm in 100 mls @ 200 mls/hr IV Q24HR [facility]; Protocol Stop: 01/22/21 10:29 Last Admin: 01/19/21 10:38 Dose: 200 mls/hr Documented by: Lorazepam (Lorazepam 2 Mg/Ml Vial) 2 mg IV Q4H PRN PRN Reason: CIWA-Ar 8-15 Methylprednisolone Sodium Succinate (Methylprednisolone Sod Succinate 40 Mg/1 Ml Inj) 40 mg IV Q8H [facility] Last Admin: 01/19/21 05:26 Dose: 40 mg Documented by: Ondansetron HCl (Ondansetron 4 Mg/2 Ml Inj) 4 mg IV Q8H PRN PRN Reason: Nausea And Vomiting Last Admin: 01/19/21 07:39 Dose: 4 mg Documented by: Pantoprazole Sodium (Pantoprazole 40 Mg Inj) 40 mg IV QDAY [facility] Sodium Chloride (Sodium Chloride 0.9% 10 Ml Flush Syringe) 10 ml IV BID [facility] Last Admin: 01/19/21 10:40 Dose: 10 ml Documented by: Sodium Chloride (Sodium Chloride 0.9% 10 Ml Flush Syringe) 10 ml IV PRN PRN PRN Reason: LINE FLUSH Thiamine HCl (Thiamine 100 Mg Tab) 100 mg PO QDAY [facility] Last Admin: 01/19/21 10:40 Dose: 100 mg Documented by: Zinc Sulfate (Zinc Sulfate 220 Mg Cap) 220 mg PO BID LEE Last Admin: 01/19/21 10:39 Dose: 220 mg Documented by: Physical Examination Vital signs: Vital Signs Temp Pulse Resp BP Pulse Ox 98 F 116 H 26 H 130/106 84 01/18/21 13:12 01/18/21 13:12 01/18/21 13:12 01/18/21 13:12 01/18/21 13:12 Results - Laboratory Findings CBC and BMP: 01/19/21 11:50 01/18/21 15:03 PT/INR, D-dimer D-Dimer 869.63 ng/mlDDU (0-234) H 01/18/21 14:47 Abnormal lab findings: Abnormal Labs 01/18/21 01/18/21 01/18/21 13:32 14:47 14:47 WBC 20.9 H Seg Neuts % (Manual) 92.0 H Lymphocytes % (Manual) 5.0 L Seg Neutrophils # Man 19.2 H Lymphocytes # (Manual) 1.0 L D-Dimer 869.63 H Sodium Carbon Dioxide BUN Creatinine Glucose 102 H Ferritin AST ALT Alkaline Phosphatase Lactate Dehydrogenase 949 H C-Reactive Protein 23.00 H Albumin Lipase Ur Specific [place] 01/18/21 01/18/21 01/18/21 14:47 15:03 18:31 WBC Seg Neuts % (Manual) Lymphocytes % (Manual) Seg Neutrophils # Man Lymphocytes # (Manual) D-Dimer Sodium 135 L Carbon Dioxide 21 L BUN 25 H Creatinine 1.5 H Glucose Ferritin 502.1 H AST 304 H ALT 98 H Alkaline Phosphatase 139 H Lactate Dehydrogenase C-Reactive Protein Albumin 3.8 L Lipase 7 L Ur Specific [place] 1.050 H 01/19/21 11:50 WBC 26.3 H Seg Neuts % (Manual) Lymphocytes % (Manual) Seg Neutrophils # Man Lymphocytes # (Manual) D-Dimer Sodium Carbon Dioxide BUN Creatinine Glucose Ferritin AST ALT Alkaline Phosphatase Lactate Dehydrogenase C-Reactive Protein Albumin Lipase Ur Specific [place]
[2021-01-19] MEDS: LORazepam 2 MG/ML VIAL IV PRN ×3 (13:15→22:03)
[2021-01-19] MEDS: PANTOPRAZOLE 40 MG INJ IV SCH (13:15)
[2021-01-19 13:49] LABS: Total Cells Counted 100
[2021-01-19 13:50] LABS: Platelet Estimate Consistent w Auto; RBC Morphology Normal
--- NOTE | 2021-01-19 14:19 | Consultation ---
History of Present Illness - Reason for Consult Consult date: 01/19/21 - History of Present Illness 50-year-old male past medical history PUD, asthma, nephrolithiasis presented with left side pain. Left flank pain for the past 2 weeks prior to admission has been progressively worse over the past few days. Is noted to be hypoxic on room air on presentation Covid PUI. He was recently seen at [facility] ER on 01/16/2021 for similar complaints. He notes that he frequently has this pain has never been able to identify a cause. There is a noted history of drug abuse and alcohol as well. During the recent presentation to outside ER the lung bases were without abnormality. At that time his white count is elevated at 15. Afebrile since admission with white count 26.3. HIV negative. Normal urine. Procalcitonin elevated at 1.52. Cultures in progress. Currently on ceftriaxone and azithromycin. Currently on nonrebreather oxygen. Imaging personally reviewed: CT abdomen pelvis: Extensive bibasilar groundglass opacities Chest CTA basilar groundglass. No evidence of PE Review of systems: Deferred due to PPE conservation strategy. Past History Past Medical History: GERD, other (See HPI) Past Surgical History: Other (Right ankle surgery) Social history: single, smoking Family history: hypertension Medications and Allergies Allergies Allergy/AdvReac Type Severity Reaction Status Date / Time aspirin Allergy "it makes Verified 12/07/20 11:27 my stomach upset" Home Medications Medication Instructions Recorded Confirmed Last Taken Type Acetaminophen [Tylenol Arthritis] 650 mg PO Q6HR PRN #30 tablet.er 05/25/17 Unknown Rx Dicyclomine [Bentyl] 10 mg PO QID PRN #20 capsule 05/25/17 Unknown Rx Ondansetron [Zofran Odt] 4 mg PO QID PRN #20 tab.rapdis 05/25/17 Unknown Rx Dicyclomine [Bentyl] 20 mg PO QID #12 tablet 12/06/17 Unknown Rx Esomeprazole Magnesium [NexIUM] 40 mg PO QDAY #30 capsule. 12/07/20 Unknown Rx Ondansetron [Zofran Odt] 4 mg PO Q8HR PRN #14 tab.rapdis 12/07/20 Unknown Rx Active Meds: Active Medications Acetaminophen (Acetaminophen 325 Mg Tab) 650 mg PO Q4H PRN PRN Reason: Pain MILD(1-3)/Fever >100.5/BENTLEY Albuterol (Albuterol 2.5 Mg/3 Ml Nebu) 2.5 mg IH Q4HRT PRN PRN Reason: Shortness Of Breath Ascorbic Acid (Ascorbic Acid 500 Mg Tab) 500 mg PO BID [facility] Last Admin: 01/19/21 10:39 Dose: 500 mg Documented by: Chlordiazepoxide HCl (Chlordiazepoxide 25 Mg Cap) 50 mg PO Q1HR PRN PRN Reason: JAIME-Bo 07-15 Cholecalciferol (Cholecalciferol (Vit D3) 1000 Unit (25 Mcg) Tab) 1,000 unit PO QDAY [facility] Last Admin: 01/19/21 10:39 Dose: 1,000 unit Documented by: Cyanocobalamin (Cyanocobalamin (Vit B-12) 1000 Mcg Tab) 1,000 mcg PO QDAY [facility] Last Admin: 01/19/21 10:39 Dose: 1,000 mcg Documented by: Folic Acid (Folic Acid 1 Mg Tab) 1 mg PO QDAY [facility] Last Admin: 01/19/21 10:39 Dose: 1 mg Documented by: Heparin Sodium (Porcine) (Heparin 5,000 Unit/1 Ml Vial) 5,000 unit SUB-Q Q12HR [facility] Last Admin: 01/19/21 10:40 Dose: 5,000 unit Documented by: Hydromorphone HCl (Hydromorphone 1 Mg/1 Ml Inj) 0.25 mg IV Q4H PRN PRN Reason: Pain, Moderate (4-6) Last Admin: 01/19/21 07:39 Dose: 0.25 mg Documented by: Azithromycin (Zithromax/Ns) 500 mg in 250 mls @ 250 mls/hr IV Q24H [facility]; Protocol Stop: 01/22/21 14:59 Ceftriaxone Sodium (Rocephin/Ns 2 Gm/100 Ml) 2 gm in 100 mls @ 200 mls/hr IV Q24HR [facility]; Protocol Stop: 01/22/21 10:29 Last Admin: 01/19/21 10:38 Dose: 200 mls/hr Documented by: Lorazepam (Lorazepam 2 Mg/Ml Vial) 2 mg IV Q4H PRN PRN Reason: JAIME-Bo 07-15 Last Admin: 01/19/21 13:15 Dose: 2 mg Documented by: Methylprednisolone Sodium Succinate (Methylprednisolone Sod Succinate 40 Mg/1 Ml Inj) 40 mg IV Q8H [facility] Last Admin: 01/19/21 05:26 Dose: 40 mg Documented by: Ondansetron HCl (Ondansetron 4 Mg/2 Ml Inj) 4 mg IV Q8H PRN PRN Reason: Nausea And Vomiting Last Admin: 01/19/21 07:39 Dose: 4 mg Documented by: Pantoprazole Sodium (Pantoprazole 40 Mg Inj) 40 mg IV QDAY [facility] Last Admin: 01/19/21 13:15 Dose: 40 mg Documented by: Sodium Chloride (Sodium Chloride 0.9% 10 Ml Flush Syringe) 10 ml IV BID [facility] Last Admin: 01/19/21 10:40 Dose: 10 ml Documented by: Sodium Chloride (Sodium Chloride 0.9% 10 Ml Flush Syringe) 10 ml IV PRN PRN PRN Reason: LINE FLUSH Thiamine HCl (Thiamine 100 Mg Tab) 100 mg PO QDAY [facility] Last Admin: 01/19/21 10:40 Dose: 100 mg Documented by: Zinc Sulfate (Zinc Sulfate 220 Mg Cap) 220 mg PO BID [facility] Last Admin: 01/19/21 10:39 Dose: 220 mg Documented by: Physical Examination - Physical Exam Narrative exam: Physical exam deferred due to PPE conservation strategy. Please refer to primary team's note. - Constitutional Vitals: Vital Signs Temp Pulse Resp BP Pulse Ox 97.7 F 99 H 22 129/78 100 01/19/21 04:05 01/19/21 05:26 01/19/21 05:26 01/19/21 05:26 01/19/21 08:36 Temperature -Last 24 Hours Temperature 97.7 F Temperature 98.3 F Results - Labs CBC & Chem 7: 01/19/21 11:50 01/18/21 15:03 Labs: Abnormal lab results 01/18/21 01/18/21 01/18/21 Range/Units 13:32 14:47 14:47 WBC 20.9 H (4.5-11.0) K/mm3 Seg Neuts % (Manual) 92.0 H (40.0-70.0) % Lymphocytes % (Manual) 5.0 L (13.4-35.0) % Seg Neutrophils # Man 19.2 H (1.8-7.7) K/mm3 Lymphocytes # (Manual) 1.0 L (1.2-5.4) K/mm3 D-Dimer 869.63 H (0-234) ng/mlDDU Sodium (137-145) mmol/L Carbon Dioxide (22-30) mmol/L BUN (9-20) mg/dL Creatinine (0.8-1.3) mg/dL Glucose 102 H (75-100) mg/dL Ferritin (30.0-300.0) ng/mL AST (5-40) units/L ALT (7-56) units/L Alkaline Phosphatase (35-129) units/L Lactate Dehydrogenase 949 H (91-180) units/L C-Reactive Protein 23.00 H (0.00-1.30) mg/dL Albumin (3.9-5) g/dL Lipase (13-60) units/L Ur Specific [place] (1.003-1.030) 01/18/21 01/18/21 01/18/21 Range/Units 14:47 15:03 18:31 WBC (4.5-11.0) K/mm3 Seg Neuts % (Manual) (40.0-70.0) % Lymphocytes % (Manual) (13.4-35.0) % Seg Neutrophils # Man (1.8-7.7) K/mm3 Lymphocytes # (Manual) (1.2-5.4) K/mm3 D-Dimer (0-234) ng/mlDDU Sodium 135 L (137-145) mmol/L Carbon Dioxide 21 L (22-30) mmol/L BUN 25 H (9-20) mg/dL Creatinine 1.5 H (0.8-1.3) mg/dL Glucose (75-100) mg/dL Ferritin 502.1 H (30.0-300.0) ng/mL AST 304 H (5-40) units/L ALT 98 H (7-56) units/L Alkaline Phosphatase 139 H (35-129) units/L Lactate Dehydrogenase (91-180) units/L C-Reactive Protein (0.00-1.30) mg/dL Albumin 3.8 L (3.9-5) g/dL Lipase 7 L (13-60) units/L Ur Specific [place] 1.050 H (1.003-1.030) 01/19/21 Range/Units 11:50 WBC 26.3 H (4.5-11.0) K/mm3 Seg Neuts % (Manual) 96.0 H (40.0-70.0) % Lymphocytes % (Manual) 4.0 L (13.4-35.0) % Seg Neutrophils # Man 25.2 H (1.8-7.7) K/mm3 Lymphocytes # (Manual) 1.1 L (1.2-5.4) K/mm3 D-Dimer (0-234) ng/mlDDU Sodium (137-145) mmol/L Carbon Dioxide (22-30) mmol/L BUN (9-20) mg/dL Creatinine (0.8-1.3) mg/dL Glucose (75-100) mg/dL Ferritin (30.0-300.0) ng/mL AST (5-40) units/L ALT (7-56) units/L Alkaline Phosphatase (35-129) units/L Lactate Dehydrogenase (91-180) units/L C-Reactive Protein (0.00-1.30) mg/dL Albumin (3.9-5) g/dL Lipase (13-60) units/L Ur Specific [place] (1.003-1.030) Assessment and Plan Cultures: Blood culture 01/18/2021 pending HIV negative Covid pending A/P: 50-year-old male past medical history PUD, asthma, nephrolithiasis admitted with left flank pain and hypoxia #Acute hypoxic respiratory failure: Secondary to bilateral pneumonia. Currently on nonrebreather #Bilateral pneumonia: Pending Covid PCR. #Left flank pain: Intermittent pain, has presented to various ERs several times, without elucidation of cause. Urine without pyuria Recs: -Follow-up Covid testing -Continue ceftriaxone and azithromycin to complete 5 and 3 days respectively. -Follow-up blood cultures -Currently on steroids per pulmonary, methylprednisolone 40 every 8 hours -Regarding left flank pain, consider renal ultrasound for potential uric acid stone versus abdominal CTA Thank you for the consult, we will continue to follow. MD [facility] ([facility] O: [phone] F: [phone]
[2021-01-19] MEDS: AZITHROMYCIN/NS 500 MG/250 ML 500 MG/250 ML BAG IV SCH (14:48)
[2021-01-19] MEDS ORDERED: METOCLOPRAMIDE 10 MG/2 ML INJ IV PRN (14:50)
[2021-01-19 15:52] LABS: BUN/Creatinine Ratio 21; Blood Urea Nitrogen 27 mg/dL (9-20); Calcium 8.3 mg/dL (8.4-10.2); Hemolysis Index 3
--- NOTE | 2021-01-19 17:20 | Vascular Lab Report ---
DUPLEX DOPPLER LOWER EXTREMITY VEINS, BILATERAL INDICATION: pain / mild swelling. TECHNIQUE: Duplex doppler imaging was performed through the veins of both lower extremities using venous andria gray and other maneuvers. COMPARISON: No relevant prior imaging study available. FINDINGS: Right Common femoral vein: Negative. Right Superficial femoral vein: Negative. Right Popliteal vein: Negative. Right Calf veins: Negative. Left Common femoral vein: Negative. Left Superficial femoral vein: Negative. Left Popliteal vein: Negative. Left Calf veins: Negative. Additional findings: None.. IMPRESSION: 1. No sonographic evidence for DVT in either lower extremity. Signer Name: Everardo Tobar MD Signed: 01/19/2021 5:15 PM Workstation Name: [id number]
--- NOTE | 2021-01-19 18:57 | Consultation ---
History of Present Illness Consult date: 01/19/21 Reason for consult: abdominal pain - History of present illness History of present illness: 50 yo male with 2 week h/o left sided/left flank pain which has gotten progressively worse. No hematuria, hematochezia, melena, fever, chills or diarrhea. Pt does c/o chronic constipation and has a h/o "ulcers". He wants to know if he can have a colonoscopy. Past History Past Medical History: GERD, other (See HPI) Past Surgical History: Other (Right ankle surgery) Social history: single, smoking Family history: hypertension Medications and Allergies Allergies Allergy/AdvReac Type Severity Reaction Status Date / Time aspirin Allergy "it makes Verified 12/07/20 11:27 my stomach upset" Home Medications Medication Instructions Recorded Confirmed Last Taken Type Acetaminophen [Tylenol Arthritis] 650 mg PO Q6HR PRN #30 tablet.er 05/25/17 Unknown Rx Dicyclomine [Bentyl] 10 mg PO QID PRN #20 capsule 05/25/17 Unknown Rx Ondansetron [Zofran Odt] 4 mg PO QID PRN #20 tab.rapdis 05/25/17 Unknown Rx Dicyclomine [Bentyl] 20 mg PO QID #12 tablet 12/06/17 Unknown Rx Esomeprazole Magnesium [NexIUM] 40 mg PO QDAY #30 capsule. 12/07/20 Unknown Rx Ondansetron [Zofran Odt] 4 mg PO Q8HR PRN #14 tab.rapdis 12/07/20 Unknown Rx Active Meds: Active Medications Acetaminophen (Acetaminophen 325 Mg Tab) 650 mg PO Q4H PRN PRN Reason: Pain MILD(1-3)/Fever >100.5/BENTELY Albuterol (Albuterol 2.5 Mg/3 Ml Nebu) 2.5 mg IH Q4HRT PRN PRN Reason: Shortness Of Breath Ascorbic Acid (Ascorbic Acid 500 Mg Tab) 500 mg PO BID [facility] Last Admin: 01/19/21 10:39 Dose: 500 mg Documented by: Chlordiazepoxide HCl (Chlordiazepoxide 25 Mg Cap) 50 mg PO Q1HR PRN PRN Reason: CIWA-Ar 8-15 Cholecalciferol (Cholecalciferol (Vit D3) 1000 Unit (25 Mcg) Tab) 1,000 unit PO QDAY [facility] Last Admin: 01/19/21 10:39 Dose: 1,000 unit Documented by: Cyanocobalamin (Cyanocobalamin (Vit B-12) 1000 Mcg Tab) 1,000 mcg PO QDAY [facility] Last Admin: 01/19/21 10:39 Dose: 1,000 mcg Documented by: Folic Acid (Folic Acid 1 Mg Tab) 1 mg PO QDAY [facility] Last Admin: 01/19/21 10:39 Dose: 1 mg Documented by: Heparin Sodium (Porcine) (Heparin 5,000 Unit/1 Ml Vial) 5,000 unit SUB-Q Q12HR [facility] Last Admin: 01/19/21 10:40 Dose: 5,000 unit Documented by: Hydromorphone HCl (Hydromorphone 1 Mg/1 Ml Inj) 0.25 mg IV Q4H PRN PRN Reason: Pain, Moderate (4-6) Last Admin: 01/19/21 14:38 Dose: 0.25 mg Documented by: Azithromycin (Zithromax/Ns) 500 mg in 250 mls @ 250 mls/hr IV Q24H [facility]; Protocol Stop: 01/20/21 14:59 Last Admin: 01/19/21 14:48 Dose: 250 mls/hr Documented by: Ceftriaxone Sodium (Rocephin/Ns 2 Gm/100 Ml) 2 gm in 100 mls @ 200 mls/hr IV Q24HR [facility]; Protocol Stop: 01/22/21 10:29 Last Admin: 01/19/21 10:38 Dose: 200 mls/hr Documented by: Lorazepam (Lorazepam 2 Mg/Ml Vial) 2 mg IV Q4H PRN PRN Reason: CIWA-Ar 8-15 Last Admin: 01/19/21 16:21 Dose: 2 mg Documented by: Methylprednisolone Sodium Succinate (Methylprednisolone Sod Succinate 40 Mg/1 Ml Inj) 40 mg IV Q8H [facility] Last Admin: 01/19/21 14:47 Dose: 40 mg Documented by: Metoclopramide HCl (Metoclopramide 10 Mg/2 Ml Inj) 10 mg IV Q6H PRN PRN Reason: Nausea And Vomiting Ondansetron HCl (Ondansetron 4 Mg/2 Ml Inj) 4 mg IV Q4H PRN PRN Reason: Nausea And Vomiting Pantoprazole Sodium (Pantoprazole 40 Mg Inj) 40 mg IV QDAY [facility] Last Admin: 01/19/21 13:15 Dose: 40 mg Documented by: Sodium Chloride (Sodium Chloride 0.9% 10 Ml Flush Syringe) 10 ml IV BID [facility] Last Admin: 01/19/21 10:40 Dose: 10 ml Documented by: Sodium Chloride (Sodium Chloride 0.9% 10 Ml Flush Syringe) 10 ml IV PRN PRN PRN Reason: LINE FLUSH Thiamine HCl (Thiamine 100 Mg Tab) 100 mg PO QDAY [facility] Last Admin: 01/19/21 10:40 Dose: 100 mg Documented by: Zinc Sulfate (Zinc Sulfate 220 Mg Cap) 220 mg PO BID [facility] Last Admin: 01/19/21 10:39 Dose: 220 mg Documented by: Review of Systems All systems: negative (none) Exam Vital Signs Temp Pulse Resp BP Pulse Ox 98 F 116 H 26 H 130/106 84 01/18/21 13:12 01/18/21 13:12 01/18/21 13:12 01/18/21 13:12 01/18/21 13:12 - General physical appearance Positive: well developed, well nourished, no distress - Eyes Positive: PERRL, normal occular movement - ENT Positive: normal pinna, normal nares, normal mucosa, no hearing loss, no congestion - Neck Positive: no masses, no bruits, trachea midline, no venous distension - Respiratory Positive: normal expansion, normal respiratory effort, clear to auscultation - Cardiovascular Rhythm: regular Heart Sounds: Present: S1 & S2. Absent: rub, click - Extremities Extremities: no ischemia, pulses symmetrical, No edema - Breasts Breasts: normal, no mass, no skin changes - Abdomen Abdomen: Present: soft, bowel sounds normal, other (Abdomen non-tender without rebound, guarding, mass, HSM or hernia.). Absent: tender, distended Hernia: none - Genitourinary Male Genitourinary: normal Female Genitourinary: normal - Integumentary no rash, no growths, no abnormal pigmentation - Neurologic Neurologic: alert and oriented to time, place and person, motor strength and sensation are grossly intact - Musculoskeletal normal gait, normal posture - Psychiatric Psychiatric: appropriate mood/affect, intact judgment & insight Results - Labs 01/19/21 11:50 01/19/21 15:22 Abnormal lab results 01/18/21 01/19/21 01/19/21 Range/Units 18:31 11:50 15:22 WBC 26.3 H (4.5-11.0) K/mm3 Seg Neuts % (Manual) 96.0 H (40.0-70.0) % Lymphocytes % (Manual) 4.0 L (13.4-35.0) % Seg Neutrophils # Man 25.2 H (1.8-7.7) K/mm3 Lymphocytes # (Manual) 1.1 L (1.2-5.4) K/mm3 Sodium 133 L (137-145) mmol/L Chloride 96.5 L (98-107) mmol/L BUN 27 H (9-20) mg/dL Glucose 106 H (75-100) mg/dL Calcium 8.3 L (8.4-10.2) mg/dL Ur Specific [place] 1.050 H (1.003-1.030) Diabetes panel 01/19/21 Range/Units 15:22 Sodium 133 L (137-145) mmol/L Potassium 4.9 (3.6-5.0) mmol/L Chloride 96.5 L (98-107) mmol/L Carbon Dioxide 24 (22-30) mmol/L BUN 27 H (9-20) mg/dL Creatinine 1.3 (0.8-1.3) mg/dL Glucose 106 H (75-100) mg/dL Calcium 8.3 L (8.4-10.2) mg/dL Calcium panel 01/19/21 Range/Units 15:22 Calcium 8.3 L (8.4-10.2) mg/dL Pituitary panel 01/19/21 Range/Units 15:22 Sodium 133 L (137-145) mmol/L Potassium 4.9 (3.6-5.0) mmol/L Chloride 96.5 L (98-107) mmol/L Carbon Dioxide 24 (22-30) mmol/L BUN 27 H (9-20) mg/dL Creatinine 1.3 (0.8-1.3) mg/dL Glucose 106 H (75-100) mg/dL Calcium 8.3 L (8.4-10.2) mg/dL Adrenal panel 01/19/21 Range/Units 15:22 Sodium 133 L (137-145) mmol/L Potassium 4.9 (3.6-5.0) mmol/L Chloride 96.5 L (98-107) mmol/L Carbon Dioxide 24 (22-30) mmol/L BUN 27 H (9-20) mg/dL Creatinine 1.3 (0.8-1.3) mg/dL Glucose 106 H (75-100) mg/dL Calcium 8.3 L (8.4-10.2) mg/dL - Imaging CT scan - abdomen: report reviewed CT scan - pelvis: report reviewed Additional studies: UA reviewed. Assessment and Plan - Patient Problems (1) Left flank pain Current Visit: Yes Status: Acute Plan to address problem: 1) Non-surgical abdomen 2) BLL pneumonia 3) Follow ID recommendations. 4) I will follow pt with you. 5) Colonoscopy not indicated at this time.
--- NOTE | 2021-01-19 20:58 | Consultation ---
PULMONARY CONSULT NOTE CONSULTING PHYSICIAN: Dr. Nelson Lam REASON FOR CONSULTATION: Acute hypoxemic respiratory failure. CHIEF COMPLAINT AND HISTORY OF PRESENT ILLNESS: The patient is a 50-year-old male with past medical history significant amongst other things for a diagnosis of peptic ulcer disease as well as asthma and nephrolithiasis, who came to the Emergency Room complaining of pain in the left side pointing mostly to his left upper quadrant/left flank. He stated that the left flank pain had been going on for about 2 weeks, worsening symptoms at the time of presentation. When EMS arrived at the patient's abode, he was found to be in distress and was brought to the Emergency Room. Over there, he was found to be hypoxemic. His O2 sat was 84% on room air. Evaluation further revealed bilateral pulmonary infiltrates and acute kidney injury. He was admitted to the medical floor and I believe COVID-19 testing was done. We are asked to assist with management of the pneumonia. Of note, he had a HIV test that was negative. When I stopped by to see him, he was resting in bed. He had intermittent dry heaves, cough that was nonproductive. He had denied fevers or chills or chest pain at initial presentation, but today tells me there is a pleuritic component to the left lower quadrant pain. He denied known exposure to anyone with COVID-19 infection. He does have a tobacco abuse history, I am unable to quantify it at the time. This really is as much of the history of presentation as I have. PAST MEDICAL HISTORY: Again, peptic ulcer disease, asthma, nephrolithiasis, nicotine dependence. PAST SURGICAL HISTORY: He has had right ankle surgery. MEDICATIONS: He was on at the time I stopped by to see him were reviewed. Pertinent medications include the following: Tylenol 650 mg p.o. q. 4 hours p.r.n. mild pain or fever, albuterol 2.5 mg nebulized q. 4 hours p.r.n. shortness of breath, vitamin C 500 mg p.o. b.i.d., Zithromax 500 mg IV daily, Rocephin 2 g IV daily, Librium as part of a CIWA protocol, vitamin D3 1000 units p.o. daily, cyanocobalamin 1000 mcg p.o. daily, folic acid 1 mg p.o. daily, heparin 5000 units subcutaneous q. 12 hours, Dilaudid 0.25 mg IV q. 4 hours p.r.n. moderate pain, Ativan 2 mg IV q. 4 hours p.r.n. CIWA score of 8-15, Solu-Medrol 40 mg IV q. 8 hours, Zofran 4 mg IV q. 8 hours p.r.n. nausea and vomiting, Protonix 40 mg IV daily, thiamine 100 mg p.o. daily and zinc sulfate 220 mg p.o. b.i.d. ALLERGIES: ASPIRIN. Nature of this allergy is unknown. DIET: He is a well-built gentleman, acute weight loss or gain history is unknown. FAMILY AND SOCIAL HISTORY: Lives in the community. He does smoke, unable to quantify his tobacco use. There is a reported history of alcohol abuse in the chart, he denies. There is also a family history of hypertension. Family history is otherwise unknown. REVIEW OF SYSTEMS: No loss of consciousness. No new-onset seizures. No new-onset focal weakness. No gross hematochezia or melena. No gross hematuria. He denied diarrhea. No hematemesis. No hemoptysis. He has had dry heaves. Denies polydipsia, polyuria. Denies heat or cold intolerance, complaining of epigastric pain, left flank pain. A complete 13-system review of systems obtained. Pertinent positives and/or negatives as in body of history above, otherwise noncontributory. PHYSICAL EXAMINATION: VITAL SIGNS: At presentation in the Emergency Room, review of vital signs shows he was afebrile, temperature 98 degrees Fahrenheit, pulse of 116, respiratory rate of 26, blood pressure 130/106, O2 sats were 84% on room air at the time. When I stopped by to see him, his O2 sats, I do not have them in the room. He had been on a nonrebreather, but when I was in the room, he had taken them off. His last reported documented O2 sats were 100% on 100% nonrebreather earlier than that, he was 97% on 3 liters nasal cannula. GENERAL: He is a middle-aged male. Normocephalic, atraumatic. Resting in bed with mildly increased respiratory effort at rest. HEAD, EYES, EARS, NOSE AND THROAT: Anicteric. No conjunctival erythema. Oropharynx is moist. No gross jugular venous distention, no thyromegaly. He has a full normal range of motion. NECK: Supple. Grossly, there are no palpable lymph nodes in the supraclavicular or submandibular lymph node chains. LUNGS: Auscultation of both lung campos significant for diminished bilateral breath sounds, bibasilar predominant inspiratory rhonchi, no wheezing. HEART: Auscultation of the heart, heart sounds 1 and 2 are heard. Regular rate and rhythm without overt rubs or murmurs. ABDOMEN: Soft, full, bowel sounds are positive. He is actually nontender in the epigastric region. No palpable hepatosplenomegaly. EXTREMITIES: Without overt digital clubbing, no cyanosis, no pedal edema. Pedal pulses are 2+ bilaterally. NEUROLOGIC: Pupils are equal, round, about 4 mm, reactive to light. Extraocular muscle movements are intact. He moves all 4 extremities spontaneously. No spinal point tenderness in the back. SKIN: Normal turgor in the areas examined without overt cellulitis or rash. PSYCHIATRIC: His mood and affect are anxious. He does seem to have intact judgment and insight. LABORATORY DATA: From my review are as follows: Admission white cell count 20,900, hemoglobin 13.7, hematocrit 40.5, platelet count 208. No band forms on the manual differential, segmented neutrophils 92%. D-dimer elevated at 869. Serum sodium 135, potassium 4.5, chloride 98, bicarbonate 21, BUN 25, creatinine 1.5, glucose was 99, lactic acid level was within normal limits. Ferritin was up at 502. AST was up at 304, ALT is up at 98. LDH 949. CRP 23. Procalcitonin 1.5. Urinalysis was negative for nitrites and leukocyte esterase, small amount of blood, otherwise bland. HIV screen was negative. Coronavirus PCR is pending. Two sets of blood cultures, no growth to date. A chest x-ray was done. I have reviewed the chest x-ray. He has some bibasilar patchy infiltrates. There is hyperinflation, otherwise no gross pneumothorax, no gross bony fractures. CT of the abdomen and pelvis was done and is negative. A CT scan of his chest, however, shows a significant ground glass process involving the bases in particular with some consolidation in the right lower lobe region in particular. He does have paraseptal emphysema that appears to be upper lobe predominant and significant ground glass opacification really nonspecific. ASSESSMENT: 1. Acute hypoxemic respiratory failure. 2. Person under investigation for COVID-19 infection. 3. Abnormal chest x-ray. 4. Bilateral pneumonia. 5. Possible interstitial lung disease versus acute infectious process. 6. Elevated liver enzymes. 7. History of alcohol abuse with possible withdrawal. 8. Leukocytosis. 9. Elevated serum inflammatory markers including D-dimers and ferritin levels. 10. Acute kidney injury. 11. Left flank pain/left upper quadrant pain. PLAN: Indeed the CT scan features could be nonspecific. It is appropriate that he is treated empirically for community-acquired pneumonia including atypical coverage. He may end up needing some other invasive procedure like bronchoscopy, especially if there is no improvement in the overall symptoms. He does have elevated D-dimer. He did again get a CT angio. Unfortunately, the contrast phase timing is very poor and this study is nondiagnostic for pulmonary emboli. I will go ahead and get bilateral lower extremity Dopplers, but we will have to revisit the possibility of pulmonary emboli. I will await Infectious Disease physician input. Oxygen will be weaned to keep sats greater than or equal to about 92%. I do agree with airborne and ice and contact isolation. We will follow the coronavirus PCR test result. I agree with systemic steroids. 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 I agree with again zinc and vitamin C supplementation. I agree with alcohol withdrawal protocol. I agree with thiamine and folic acid supplementation. He is appropriately on GI and DVT prophylaxis. The physical exam is a little benign compared to his moaning and groaning; however, he ____ very soon. During the conversation, went back to sleeping, so it is unclear what is really going on. He will be followed clinically. Flu and pneumonia vaccination will be addressed per protocol. Thank you very much for the consult. We will follow along and make further recommendations as picture progresses/becomes clearer. JOB# [id number] ELOINA/ANDRZEJ HERBERT
[2021-01-20] MEDS: LORazepam 2 MG/ML VIAL IV PRN (02:44)
[2021-01-20] MEDS: ONDANSETRON 4 MG/2 ML INJ IV PRN (02:45)
[2021-01-20] MEDS: HYDROmorphone 1 MG/1 ML INJ IV PRN (04:39)
[2021-01-20] MEDS: methylPREDNISolone Sod Succinate 40 MG/1 ML INJ IV SCH ×3 (05:09→22:06)
--- NOTE | 2021-01-20 09:47 | Progress Note ---
Assessment and Plan - Patient Problems (1) Left flank pain Current Visit: Yes Status: Acute Plan to address problem: 1) Consider GI consult. Pt does not have a surgical issue. Subjective Date of service: 01/20/21 Patient Reports: Positive: no new complaints, still having pain (Had some blood in his BM last week. Hurts in his left flank and LUQ.) Objective Vital Signs - 12hr 01/19/21 01/19/21 01/20/21 21:52 23:49 00:00 Temperature 99.1 F Pulse Rate 88 88 Respiratory 18 Rate Blood Pressure 118/70 O2 Sat by Pulse 92 94 Oximetry 01/20/21 04:40 Temperature 97.6 F Pulse Rate 76 Respiratory 20 Rate Blood Pressure 147/87 O2 Sat by Pulse 100 Oximetry - Abdomen soft (Abdomen is essentially non-tender.), bowel sounds normal Hernia: none - Labs 01/19/21 11:50 01/19/21 15:22 Diabetes panel 01/19/21 Range/Units 15:22 Sodium 133 L (137-145) mmol/L Potassium 4.9 (3.6-5.0) mmol/L Chloride 96.5 L (98-107) mmol/L Carbon Dioxide 24 (22-30) mmol/L BUN 27 H (9-20) mg/dL Creatinine 1.3 (0.8-1.3) mg/dL Glucose 106 H (75-100) mg/dL Calcium 8.3 L (8.4-10.2) mg/dL Calcium panel 01/19/21 Range/Units 15:22 Calcium 8.3 L (8.4-10.2) mg/dL Pituitary panel 01/19/21 Range/Units 15:22 Sodium 133 L (137-145) mmol/L Potassium 4.9 (3.6-5.0) mmol/L Chloride 96.5 L (98-107) mmol/L Carbon Dioxide 24 (22-30) mmol/L BUN 27 H (9-20) mg/dL Creatinine 1.3 (0.8-1.3) mg/dL Glucose 106 H (75-100) mg/dL Calcium 8.3 L (8.4-10.2) mg/dL Adrenal panel 01/19/21 Range/Units 15:22 Sodium 133 L (137-145) mmol/L Potassium 4.9 (3.6-5.0) mmol/L Chloride 96.5 L (98-107) mmol/L Carbon Dioxide 24 (22-30) mmol/L BUN 27 H (9-20) mg/dL Creatinine 1.3 (0.8-1.3) mg/dL Glucose 106 H (75-100) mg/dL Calcium 8.3 L (8.4-10.2) mg/dL
--- NOTE | 2021-01-20 10:52 | Consultation ---
History of Present Illness - Reason for Consult Consult date: 01/20/21 Reason for consult: MHE Requesting physician: RONAN SHERMAN - Chief Complaint Chief complaint: My stomach is bothering me - History of Present Psychiatric Illness Per Hospitalist: 50 YO Male with PUD, Asthma, Nephrolithiasis, Nicotine Dependence presents to ED for evaluation. Pt reports "My left side hurts". Pt states that he has experienced left flank pain over the past 2 weeks with worsening symptoms over the past several days. EMS was notified and upon arrival the patient was found to be in distress and subsequently transported to [facility] for further care and evaluation of the aforementioned symptoms. The patient was seen and evaluated in the emergency department. All lab and imaging studies reviewed. The patient was found to have a pulse oximetry of 84% on room air which is consistent with acute hypoxemic respiratory failure. The patient was placed on submental oxygen with improvement in symptoms. The patient was also found to have bilateral pneumonia, sepsis, acute kidney injury. Patient admitted to medical floor and initiated on sepsis protocol as well as pneumonia protocol as well as coronavirus protocol. Patient denies fever, chills, chest pain, palpitation, productive cough, skin rash, recent ill contacts, or known exposure to COVID-19. No prior admission for review. All medication listed at time of admission has been reconciled. PSYCH HPI Patient is a 50-year-old single currently unemployed -[place] male without any past psychiatric history who was admitted for hypoxemia with concerns for hypoactive delirium due to prolonged hypoxemia and hospital admission. Patient seen this a.m. patient reports he would like them to stop his medication, so we can see how he does with without medication. Patient also states that he would like the oxygen to be taken off him so that he can walk around and be discharged home because if there is no need for him to be in the hospital then he does not need to be in the hospital. Patient is currently denying auditory visual hallucinations,, patient states the year and the date and month currently. PAST PSYCHIATRIC HISTORY Diagnoses: None Suicide attempts or Self-harm behavior: None Prior psychiatric hospitalizations: Substance Abuse history: Previous psychiatric medications tried: Outpatient treatment: PAST MEDICAL HISTORY: Family Psychiatric History: None reported or documented SOCIAL HISTORY Marital Status: Single Living Arrangements: With family Employment Status: Unemployed Access to guns/weapons: None report Education: 10th History of Abuse: None reported Legal History: None reported REVIEW OF SYSTEMS Constitutional: Negative for weight loss ENT: Negative for stridor Respiratory: Negative for cough or hemoptysis All other systems reviewed and are negative MENTAL STATUS EXAMINATION General Appearance and Behavior: Age appropriate, good hygiene, wearing appropriate clothes, good eye contact, cooperative polite with questioning. Cooperation: Participating/engaged Psychomotor Behavior: unremarkable and within normal limits Mood: Good Affect and affective range: congruent with mood Thought Process: Fluent/Logical, Thought Content: Within reality, Speech: low volume, slow rate and rhythm, Intellectual Functioning: Average Suicidal Ideation: Denies SI Homicidal Ideation: Denies HI Impulse Control: Unimpaired Insight and Judgment: Normal insight and judgment, Memory: slight imparement Attention: Normal, Orientation: Alert, oriented but intermittent confusion Diagnoses: Treatment Plan We will start patient on olanzapine 2.5 mg and Depakote liquid MEDICATIONS: Risks, benefits and alternatives of medications discussed with the patient, q uestions answered and consent obtained from patient. PSYCHOTHERAPY: Supportive psychotherapy provided MEDICAL: Per primary team DELIRIUM PRECAUTIONS: Please re-orient patient frequently, keep lights on during the day, and minimize benzodiazepines and opiates as these medications could worsen patient's confusion. 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 Case discussed with Dr. Guillen who agrees with current disposition LEGAL STATUS: Voluntary FOLLOW-UP: Will follow Thank you for the consult. Please contact with any questions and/or concerns. Medications and Allergies Allergies Allergy/AdvReac Type Severity Reaction Status Date / Time aspirin Allergy "it makes Verified 12/07/20 11:27 my stomach upset" Home Medications Medication Instructions Recorded Confirmed Last Taken Type Acetaminophen [Tylenol Arthritis] 650 mg PO Q6HR PRN #30 tablet.er 05/25/17 Unknown Rx Dicyclomine [Bentyl] 10 mg PO QID PRN #20 capsule 05/25/17 Unknown Rx Ondansetron [Zofran Odt] 4 mg PO QID PRN #20 tab.lordis 05/25/17 Unknown Rx Dicyclomine [Bentyl] 20 mg PO QID #12 tablet 12/06/17 Unknown Rx Esomeprazole Magnesium [NexIUM] 40 mg PO QDAY #30 capsule. 12/07/20 Unknown Rx Ondansetron [Zofran Odt] 4 mg PO Q8HR PRN #14 tab.lordis 12/07/20 Unknown Rx Active Meds: Active Medications Acetaminophen (Acetaminophen 325 Mg Tab) 650 mg PO Q4H PRN PRN Reason: Pain MILD(1-3)/Fever >100.5/BENTLEY Albuterol (Albuterol 2.5 Mg/3 Ml Nebu) 2.5 mg IH Q4HRT PRN PRN Reason: Shortness Of Breath Ascorbic Acid (Ascorbic Acid 500 Mg Tab) 500 mg PO BID [facility] Last Admin: 01/19/21 21:22 Dose: Not Given Documented by: Chlordiazepoxide HCl (Chlordiazepoxide 25 Mg Cap) 50 mg PO Q1HR PRN PRN Reason: CIWA-Ar 8-15 Cholecalciferol (Cholecalciferol (Vit D3) 1000 Unit (25 Mcg) Tab) 1,000 unit PO QDAY [facility] Last Admin: 01/19/21 10:39 Dose: 1,000 unit Documented by: Cyanocobalamin (Cyanocobalamin (Vit B-12) 1000 Mcg Tab) 1,000 mcg PO QDAY [facility] Last Admin: 01/19/21 10:39 Dose: 1,000 mcg Documented by: Folic Acid (Folic Acid 1 Mg Tab) 1 mg PO QDAY [facility] Last Admin: 01/19/21 10:39 Dose: 1 mg Documented by: Heparin Sodium (Porcine) (Heparin 5,000 Unit/1 Ml Vial) 5,000 unit SUB-Q Q12HR [facility] Last Admin: 01/19/21 21:07 Dose: 5,000 unit Documented by: Hydromorphone HCl (Hydromorphone 1 Mg/1 Ml Inj) 0.25 mg IV Q4H PRN PRN Reason: Pain, Moderate (4-6) Last Admin: 01/20/21 04:39 Dose: 0.25 mg Documented by: Azithromycin (Zithromax/Ns) 500 mg in 250 mls @ 250 mls/hr IV Q24H [facility]; Protocol Stop: 01/20/21 14:59 Last Admin: 01/19/21 14:48 Dose: 250 mls/hr Documented by: Ceftriaxone Sodium (Rocephin/Ns 2 Gm/100 Ml) 2 gm in 100 mls @ 200 mls/hr IV Q24HR [facility]; Protocol Stop: 01/22/21 10:29 Last Admin: 01/19/21 10:38 Dose: 200 mls/hr Documented by: Lorazepam (Lorazepam 2 Mg/Ml Vial) 2 mg IV Q4H PRN PRN Reason: CIWA-Ar 8-15 Last Admin: 01/20/21 02:44 Dose: 2 mg Documented by: Methylprednisolone Sodium Succinate (Methylprednisolone Sod Succinate 40 Mg/1 Ml Inj) 40 mg IV Q8H [facility] Last Admin: 01/20/21 05:09 Dose: 40 mg Documented by: Metoclopramide HCl (Metoclopramide 10 Mg/2 Ml Inj) 10 mg IV Q6H PRN PRN Reason: Nausea And Vomiting Ondansetron HCl (Ondansetron 4 Mg/2 Ml Inj) 4 mg IV Q4H PRN PRN Reason: Nausea And Vomiting Last Admin: 01/20/21 02:45 Dose: 4 mg Documented by: Pantoprazole Sodium (Pantoprazole 40 Mg Inj) 40 mg IV QDAY [facility] Last Admin: 01/19/21 13:15 Dose: 40 mg Documented by: Sodium Chloride (Sodium Chloride 0.9% 10 Ml Flush Syringe) 10 ml IV BID [facility] Last Admin: 01/19/21 21:07 Dose: 10 ml Documented by: Sodium Chloride (Sodium Chloride 0.9% 10 Ml Flush Syringe) 10 ml IV PRN PRN PRN Reason: LINE FLUSH Thiamine HCl (Thiamine 100 Mg Tab) 100 mg PO QDAY [facility] Last Admin: 01/19/21 10:40 Dose: 100 mg Documented by: Zinc Sulfate (Zinc Sulfate 220 Mg Cap) 220 mg PO BID [facility] Last Admin: 01/19/21 21:22 Dose: Not Given Documented by: Mental Status Exam - Vital signs Last Vital Signs Temp 98.1 F 01/20/21 08:50 Pulse 91 H 01/20/21 08:50 Resp 22 01/20/21 08:50 BP 111/78 01/20/21 08:50 Pulse Ox 96 01/20/21 08:50 Results Result Diagrams: 01/19/21 11:50 01/19/21 15:22 Abnormal lab results 01/19/21 01/19/21 Range/Units 11:50 15:22 WBC 26.3 H (4.5-11.0) K/mm3 Seg Neuts % (Manual) 96.0 H (40.0-70.0) % Lymphocytes % (Manual) 4.0 L (13.4-35.0) % Seg Neutrophils # Man 25.2 H (1.8-7.7) K/mm3 Lymphocytes # (Manual) 1.1 L (1.2-5.4) K/mm3 Sodium 133 L (137-145) mmol/L Chloride 96.5 L (98-107) mmol/L BUN 27 H (9-20) mg/dL Glucose 106 H (75-100) mg/dL Calcium 8.3 L (8.4-10.2) mg/dL All other labs normal.
[2021-01-20] MEDS: HEPARIN 5,000 UNIT/1 ML VIAL SUB-Q SCH ×2 (11:11→22:06)
[2021-01-20] MEDS: FOLIC ACID 1 MG TAB PO SCH (11:11)
[2021-01-20] MEDS: THIAMINE 100 MG TAB PO SCH (11:11)
[2021-01-20] MEDS: PANTOPRAZOLE 40 MG INJ IV SCH (11:11)
[2021-01-20] MEDS: CHOLECALCIFEROL (VIT D3) 1000 UNIT (25 mcg) TAB PO SCH (11:11)
[2021-01-20] MEDS: CYANOCOBALAMIN (VIT B-12) 1000 MCG TAB PO SCH (11:11)
[2021-01-20] MEDS: ASCORBIC ACID 500 MG TAB PO SCH ×2 (11:55→22:07)
[2021-01-20] MEDS: ZINC SULFATE 220 MG CAP PO SCH ×2 (11:55→22:07)
--- NOTE | 2021-01-20 11:59 | Progress Note ---
Assessment and Plan Assessment and plan: 50 YO Male with PUD, Asthma, Nephrolithiasis, Nicotine Dependence presents to ED for evaluation. Pt reports "My left side hurts". Pt states that he has experienced left flank pain over the past 2 weeks with worsening symptoms over the past several days. EMS was notified and upon arrival the patient was found to be in distress and subsequently transported to [facility] for further care and evaluation of the aforementioned symptoms. The patient was seen and evaluated in the emergency department. All lab and imaging studies reviewed. The patient was found to have a pulse oximetry of 84% on room air which is consistent with acute hypoxemic respiratory failure. The patient was placed on submental oxygen with improvement in symptoms. The patient was also found to have bilateral pneumonia, sepsis, acute kidney injury. Patient admitted to medical floor and initiated on sepsis protocol as well as pneumonia protocol as well as coronavirus protocol. Patient denies fever, chills, chest pain, palpitation, productive cough, skin rash, recent ill contacts, or known exposure to COVID-19. No prior admission for review. All medication listed at time of admission has been reconciled. CT abdomen and pelvis IMPRESSION: 1. Extensive bibasilar groundglass pulmonary opacities with mild parenchymal disease right lower lobe, unchanged. 2. No acute inflammatory process or pneumoperitoneum . No detrimental change since yesterday CT angio chest: IMPRESSION: Extensive basilar predominant groundglass opacities with interlobular septal thickening and developing airspace consolidation of the right lower lobe. Findings are somewhat nonspecific. Differential includes pulmonary alveolar proteinosis, pulmonary edema, diffuse alveolar hemorrhage, or atypical infection, to include pneumocystis and mycoplasma. 01/19: Patient was started on sepsis protocol due to meeting at least 2 of the sepsis criteria with SIRS. Although no fever will continue antibiotics will obtain ID consult for atypical pneumonia while we await for COVID-19 testing. Also requested for records from [facility] and also from [facility]. Patient also has significant alcohol use 15 minutes of counseling has been provided to him we will start him on CIWA protocol. Plan discussed with nursing staff and they will assist with obtaining medical records from both facilities. 01/20: ?underlying ing, Precautions and psych consult for hypoactive delirium. Patient still also on high flow oxygen underlining hypoxia could have contributed to this. Discussed with the psych team. And otherwise we will continue current management for infectious processes and pulmonary evaluation. Still awaiting records from [facility] and [facility]. He remains on high flow oxygen and will wean as tolerated. (1) Sepsis Current Visit: Yes Status: Acute Plan to address problem: Sepsis protocol: Chest x-ray, CBC, CMP, urinalysis, IV antibiotic therapy, IV fluid resuscitation therapy, serial lactic acid level, maintain mean arterial pressure greater than or equal to 65, blood culture, rapid HIV (2) Acute respiratory failure with hypoxia Current Visit: Yes Status: Acute Plan to address problem: Supplemental oxygen, pulse oximetry, nebulizer therapy, chest x-ray, CT scan chest, pulmonary toilet, if patient is unable to maintain pulse oximetry greater than 80% on submental oxygen will transition patient to high flow submental oxygen. (3) Bilateral pneumonia Current Visit: Yes Status: Acute Plan to address problem: Pneumonia protocol: Chest x-ray, CBC, CMP, CT scan chest, IV antibiotic therapy, supplemental oxygen, pulse oximetry, nebulizer therapy, blood cultures. (4) Elevated liver enzymes Current Visit: Yes Status: Acute Plan to address problem: Supportive care, repeat CMP in a.m. (5) EtOH use disorder with possible underlying withdrawal (6)DVT prophylaxis Current Visit: Yes Status: Acute Plan to address problem: SCD to bilateral lower extremities while in bed, prophylactic anticoagula The high probability of a clinically significant, sudden or life threatening deterioration of the [pulmonary] system(s) required my full and direct at tention, intervention and personal management. The aggregate critical care time was [35] minutes. This time is in addition to time spent performing reported procedures but includes the following: [x] Data Review and interpretation [x] Patient assessment and monitoring of vital signs [x] Documentation [x] Medication orders and management History Interval history: Patient seen and examined this morning, concerning for hypoactive issues and recurrent asking questions that are apparent to him in the past , ?underlying Hypoxemia related delirium Hospitalist Physical - Physical exam Narrative exam: VITAL SIGNS: Reviewed. GENERAL: The patient appears normally developed, Vital signs as documented. HEAD: No signs of head trauma. EYES: Pupils are equal. Extraocular motions intact. EARS: Hearing grossly intact. MOUTH: Oropharynx is normal. NECK: No adenopathy, no JVD. CHEST: Chest with diminished breath sounds bilaterally. Tachypneic no wheezes, rales, or rhonchi. CARDIAC: Regular rate and rhythm. S1 and S2, without murmurs, gallops, or rubs. VASCULAR: No Edema. Peripheral pulses normal and equal in all extremities. ABDOMEN: Soft, non tender and non distended. No rebound or guarding, and no masses palpated. Bowel Sounds normal. MUSCULOSKELETAL: Good range of motion of all major joints. Extremities without clubbing, cyanosis or edema. NEUROLOGIC EXAM: Alert and oriented x 3 mild confusion, No focal sensory or strength deficits. Speech normal. Follows commands. PSYCHIATRIC: Mood anxious l. SKIN: detail exam as documented in skin assessment - Constitutional Vitals: Temp Pulse Resp BP Pulse Ox 98.1 F 91 H 22 111/78 96 01/20/21 08:50 01/20/21 08:50 01/20/21 08:50 01/20/21 08:50 01/20/21 08:50 General appearance: Present: mild distress Results - Labs CBC & Chem 7: 01/19/21 11:50 01/19/21 15:22 Labs: Laboratory Last Values WBC 26.3 K/mm3 (4.5-11.0) H 01/19/21 11:50 RBC 4.45 M/mm3 (3.65-5.03) 01/19/21 11:50 Hgb 14.0 gm/dl (11.8-15.2) 01/19/21 11:50 Hct 42.0 % (35.5-45.6) 01/19/21 11:50 MCV 94 fl (84-94) 01/19/21 11:50 MCH 32 pg (28-32) 01/19/21 11:50 MCHC 33 % (32-34) 01/19/21 11:50 RDW 13.8 % (13.2-15.2) 01/19/21 11:50 Plt Count 213 K/mm3 (140-440) 01/19/21 11:50 Add Manual Diff Complete 01/19/21 11:50 Total Counted 100 01/19/21 11:50 Seg Neutrophils % Caster Helper 01/19/21 11:50 Seg Neuts % (Manual) 96.0 % (40.0-70.0) H 01/19/21 11:50 Lymphocytes % (Manual) 4.0 % (13.4-35.0) L 01/19/21 11:50 Monocytes % (Manual) 3.0 % (0.0-7.3) 01/18/21 13:32 Nucleated RBC % Not Reportable 01/19/21 11:50 Seg Neutrophils # Man 25.2 K/mm3 (1.8-7.7) H 01/19/21 11:50 Band Neutrophils # 0.0 K/mm3 01/19/21 11:50 Lymphocytes # (Manual) 1.1 K/mm3 (1.2-5.4) L 01/19/21 11:50 Abs React Lymphs (Man) 0.0 K/mm3 01/19/21 11:50 Monocytes # (Manual) 0.0 K/mm3 (0.0-0.8) 01/19/21 11:50 Eosinophils # (Manual) 0.0 K/mm3 (0.0-0.4) 01/19/21 11:50 Basophils # (Manual) 0.0 K/mm3 (0.0-0.1) 01/19/21 11:50 Metamyelocytes # 0.0 K/mm3 01/19/21 11:50 Myelocytes # 0.0 K/mm3 01/19/21 11:50 Promyelocytes # 0.0 K/mm3 01/19/21 11:50 Blast Cells # 0.0 K/mm3 01/19/21 11:50 WBC Morphology Not Reportable 01/19/21 11:50 Hypersegmented Neuts Not Reportable 01/19/21 11:50 Hyposegmented Neuts Not Reportable 01/19/21 11:50 Hypogranular Neuts Not Reportable 01/19/21 11:50 Smudge Cells Not Reportable 01/19/21 11:50 Toxic Granulation Not Reportable 01/19/21 11:50 Toxic Vacuolation Not Reportable 01/19/21 11:50 Dohle Bodies Not Reportable 01/19/21 11:50 Pelger-Huet Anomaly Not Reportable 01/19/21 11:50 Ricco Rods Not Reportable 01/19/21 11:50 Platelet Estimate Consistent w auto 01/19/21 11:50 Clumped Platelets Not Reportable 01/19/21 11:50 Plt Clumps, EDTA Not Reportable 01/19/21 11:50 Large Platelets Not Reportable 01/19/21 11:50 Giant Platelets Not Reportable 01/19/21 11:50 Platelet Satelliting Not Reportable 01/19/21 11:50 Plt Morphology Comment Not Reportable 01/19/21 11:50 RBC Morphology Normal 01/19/21 11:50 Dimorphic RBCs Not Reportable 01/19/21 11:50 Polychromasia Not Reportable 01/19/21 11:50 Hypochromasia Not Reportable 01/19/21 11:50 Poikilocytosis Not Reportable 01/19/21 11:50 Anisocytosis Not Reportable 01/19/21 11:50 Microcytosis Not Reportable 01/19/21 11:50 Macrocytosis Not Reportable 01/19/21 11:50 Spherocytes Not Reportable 01/19/21 11:50 Pappenheimer Bodies Not Reportable 01/19/21 11:50 Sickle Cells Not Reportable 01/19/21 11:50 Target Cells Not Reportable 01/19/21 11:50 Tear Drop Cells Not Reportable 01/19/21 11:50 Ovalocytes Not Reportable 01/19/21 11:50 Helmet Cells Not Reportable 01/19/21 11:50 [place] Bodies Not Reportable 01/19/21 11:50 Richards Rings Not Reportable 01/19/21 11:50 [place] Cells Not Reportable 01/19/21 11:50 Bite Cells Not Reportable 01/19/21 11:50 Crenated Cell Not Reportable 01/19/21 11:50 Elliptocytes Not Reportable 01/19/21 11:50 Acanthocytes (Spur) Not Reportable 01/19/21 11:50 Rouleaux Not Reportable 01/19/21 11:50 Hemoglobin C Crystals Not Reportable 01/19/21 11:50 Schistocytes Not Reportable 01/19/21 11:50 Malaria parasites Not Reportable 01/19/21 11:50 Danny Bodies Not Reportable 01/19/21 11:50 Hem Pathologist Commnt No 01/19/21 11:50 D-Dimer 869.63 ng/mlDDU (0-234) H 01/18/21 14:47 Sodium 133 mmol/L (137-145) L 01/19/21 15:22 Potassium 4.9 mmol/L (3.6-5.0) 01/19/21 15:22 Chloride 96.5 mmol/L (98-107) L 01/19/21 15:22 Carbon Dioxide 24 mmol/L (22-30) 01/19/21 15:22 Anion Gap 17 mmol/L 01/19/21 15:22 BUN 27 mg/dL (9-20) H 01/19/21 15:22 Creatinine 1.3 mg/dL (0.8-1.3) 01/19/21 15:22 Estimated GFR > 60 ml/min 01/19/21 15:22 BUN/Creatinine Ratio 21 % 01/19/21 15:22 Glucose 106 mg/dL (75-100) H 01/19/21 15:22 Lactic Acid 1.30 mmol/L (0.7-2.0) 01/18/21 21:36 Calcium 8.3 mg/dL (8.4-10.2) L 01/19/21 15:22 Ferritin 502.1 ng/mL (30.0-300.0) H 01/18/21 14:47 Total Bilirubin 1.10 mg/dL (0.1-1.2) 01/18/21 15:03 AST 304 units/L (5-40) H 01/18/21 15:03 ALT 98 units/L (7-56) H 01/18/21 15:03 Alkaline Phosphatase 139 units/L (35-129) H 01/18/21 15:03 Lactate Dehydrogenase 949 units/L (91-180) H 01/18/21 14:47 C-Reactive Protein 23.00 mg/dL (0.00-1.30) H 01/18/21 14:47 Total Protein 6.8 g/dL (6.3-8.2) 01/18/21 15:03 Albumin 3.8 g/dL (3.9-5) L 01/18/21 15:03 Albumin/Globulin Ratio 1.3 % 01/18/21 15:03 Lipase 7 units/L (13-60) L 01/18/21 15:03 Procalcitonin 1.52 ng/mL (<0.15) 01/18/21 14:47 Urine Color Yellow (Yellow) 01/18/21 18:31 Urine Turbidity Clear (Clear) 01/18/21 18:31 Urine pH 5.0 (5.0-7.0) 01/18/21 18:31 Ur Specific [place] 1.050 (1.003-1.030) H 01/18/21 18:31 Urine Protein 30 mg/dl mg/dL (Negative) 01/18/21 18:31 Urine Glucose (UA) Neg mg/dL (Negative) 01/18/21 18: Urine Ketones 20 mg/dL (Negative) 01/18/21 18: Urine Blood Sm (Negative) 01/18/21 18: Urine Nitrite Neg (Negative) 01/18/21 18: Urine Bilirubin Neg (Negative) 01/18/21 18: Urine Urobilinogen < 2.0 mg/dL (<2.0) 01/18/21 18: Ur Leukocyte Esterase Neg (Negative) 01/18/21 18: Urine WBC (Auto) 1.0 /HPF (0.0-6.0) 01/18/21 18: Urine RBC (Auto) 3.0 /HPF (0.0-6.0) 01/18/21 18: U Epithel Cells (Auto) 1.0 /HPF (0-13.0) 01/18/21 18: Urine Mucus 1+ /HPF 01/18/21 18:31 Coronavirus (PCR) Negative (Negative) 01/19/21 Unknown HIV 1&2 Antibody Rapid Non react (Non React) 01/18/21 21:36 HIV P24 Antigen Non react (Non React) 01/18/21 21:36 Microbiology: Microbiology 01/18/21 14:52 Peripheral/Venous Blood Culture - Preliminary NO GROWTH AFTER 24 HOURS 01/18/21 14:47 Peripheral/Venous Blood Culture - Preliminary NO GROWTH AFTER 24 HOURS Gomes/IV: Voiding Method Toilet Active Medications - Current Medications Current Medications: Generic Name Dose Route Start Last Admin Trade Name Freq PRN Reason Stop Dose Admin Acetaminophen 650 mg 01/18/21 17:19 Acetaminophen 325 Mg Tab PO Q4H PRN Pain MILD(1-3)/Fever >100.5/BENTLEY Albuterol 2.5 mg 01/18/21 17:19 Albuterol 2.5 Mg/3 Ml Nebu IH Q4HRT PRN Shortness Of Breath Ascorbic Acid 500 mg 01/18/21 22:00 01/20/21 11:55 Ascorbic Acid 500 Mg Tab PO Not Given BID LEE Chlordiazepoxide HCl 50 mg 01/19/21 10:07 Chlordiazepoxide 25 Mg Cap PO Q1HR PRN CIWA-Ar 8-15 Cholecalciferol 1,000 unit 01/19/21 10:00 01/20/21 11:11 Cholecalciferol (Vit D3) 1000 Unit (25 Mcg) Tab PO 1,000 unit QDAY LEE Administration Cyanocobalamin 1,000 mcg 01/19/21 11:00 01/20/21 11:11 Cyanocobalamin (Vit B-12) 1000 Mcg Tab PO 1,000 mcg QDAY LEE Administration Folic Acid 1 mg 01/19/21 11:00 01/20/21 11:11 Folic Acid 1 Mg Tab PO 1 mg QDAY LEE Administration Heparin Sodium (Porcine) 5,000 unit 01/18/21 22:00 01/20/21 11:11 Heparin 5,000 Unit/1 Ml Vial SUB-Q 5,000 unit Q12HR LEE Administration Hydromorphone HCl 0.25 mg 01/18/21 17:24 01/20/21 04:39 Hydromorphone 1 Mg/1 Ml Inj IV 0.25 mg Q4H PRN Administration Pain, Moderate (4-6) Azithromycin 500 mg in 250 mls @ 250 mls/hr 01/19/21 14:00 01/19/21 14:48 Zithromax/Ns IV 01/20/21 14:59 250 mls/hr Q24H LEE Administration Protocol Ceftriaxone Sodium 2 gm in 100 mls @ 200 mls/hr 01/19/21 10:00 01/19/21 10:38 Rocephin/Ns 2 Gm/100 Ml IV 01/22/21 10:29 200 mls/hr Q24HR LEE Administration Protocol Lorazepam 2 mg 01/19/21 10:07 01/20/21 02:44 Lorazepam 2 Mg/Ml Vial IV 2 mg Q4H PRN Administration CINH-Ar 8-15 Methylprednisolone Sodium Succinate 40 mg 01/18/21 22:00 01/20/21 05:09 Methylprednisolone Sod Succinate 40 Mg/1 Ml Inj IV 40 mg Q8H LEE Administration Metoclopramide HCl 10 mg 01/19/21 14:50 Metoclopramide 10 Mg/2 Ml Inj IV Q6H PRN Nausea And Vomiting Olanzapine 5 mg 01/20/21 22:00 Olanzapine 5 Mg Tab PO QHS LEE Ondansetron HCl 4 mg 01/19/21 14:49 01/20/21 02:45 Ondansetron 4 Mg/2 Ml Inj IV 4 mg Q4H PRN Administration Nausea And Vomiting Pantoprazole Sodium 40 mg 01/19/21 12:00 01/20/21 11:11 Pantoprazole 40 Mg Inj IV 40 mg QDAY LEE Administration Sodium Chloride 10 ml 01/18/21 22:00 01/20/21 11:11 Sodium Chloride 0.9% 10 Ml Flush Syringe IV 10 ml BID LEE Administration Sodium Chloride 10 ml 01/18/21 17:19 Sodium Chloride 0.9% 10 Ml Flush Syringe IV PRN PRN LINE FLUSH Thiamine HCl 100 mg 01/19/21 11:00 01/20/21 11:11 Thiamine 100 Mg Tab PO 100 mg QDAY LEE Administration Valproic Acid 250 mg 01/20/21 22:00 Valproic Acid 250 Mg/5 Ml Oral Liqd PO BID LEE Zinc Sulfate 220 mg 01/18/21 22:00 01/20/21 11:55 Zinc Sulfate 220 Mg Cap PO Not Given BID LEE Nutrition/Malnutrition Assess - Dietary Evaluation Nutrition/Malnutrition Findings: Nutrition Notes Start: 01/19/21 12:04 Freq: Status: Active Protocol: Document 01/19/21 12:04 AT (Rec: 01/19/21 12:09 AT [id number]) Co-Sign 01/19/21 12:04 MK Nutrition Notes Need for Assessment generated from: manager chinese,MST Initial or Follow up Brief Note Current Diagnosis Acute Kidney Injury,Sepsis, Respiratory Failure Other Pertinent Diagnosis Bilat Pneu, COVID PUI, hx duodenal and gastric ulcers, Gallstones, ETOH dep Current Diet Cardiac Diet Subjective/Other Information Screen for MST of 2. Pt was struggling to speak due to pain during phone call and interview was promptly discontinued. Will follow up for full assessment. Nutrition Intervention Add Supplement/Snack (indicate name/kcal Ensure Enlive daily /protein ) Provides kCal: 350 Provides Protein (gm) 20 Follow-Up By: 01/22/21 Additional Comments F/U for full assessment
--- NOTE | 2021-01-20 12:58 | Progress Note ---
Assessment and Plan Acute hypoxemic respiratory failure. Person under investigation for COVID-19 infection. Abnormal chest x-ray. Bilateral pneumonia. Possible interstitial lung disease versus acute infectious process. Elevated liver enzymes. History of alcohol abuse with possible withdrawal. Leukocytosis. Elevated serum inflammatory markers including D-dimers and ferritin levels. Acute kidney injury. Left flank pain/left upper quadrant pain - follow COVID-19 test result - continue CIWA protocol - Psych evaluation ongoing - continue to wean supplemental oxygen to keep O2 sats > 90% - continue Bronchodilators (EDELMIRA & LABA) with pulm hygiene per RT - continue to avoid nephrotoxins, renally dose all medications - continue mobility protocols to prevent pressure ulcers - PT/OT as tolerated - prn analgesia per pain score - Wound care per RN/WCT - with glycemic control per SSI for target blood glucose < 180 mg/dL - Smoking cessation strongly counseled at the bedside - home oxygen evaluation at discharge - GI & VTE prophylaxis - Flu & pneumovax per protocol - Pulmonary out patient follow up for PFTs and optimization of respiratory status - continue other care per attending / other consultants COVID-19 SPECIFIC INTERVENTIONS: - Remdesivir as per ID/Pulmonary developed protocols (await COVID test result) - continue systemic steroids empirically - follow repeat COVID tests results - zinc and vitamin C supplementation - Monitor inflammatory markers per facility protocol - ferritin, D-dimer, CRP - therapeutic anticoagulation per system Protocol based on d-dimer and clinical considerations - Continue contact and airborne isolation ... re-evaluate in am & prn Subjective Date of service: 01/20/21 Principal diagnosis: Ac hypoxemic resp failure; PUI COVID-19; Vicente pneumonia; ? ILD; KAYLA Interval history: Patient is seen today for: Acute hypoxemic respiratory failure; PUI COVID-19 infection; Bilateral pneumonia; Possible interstitial lung disease versus acute infectious process; H/O EtOH abuse; KAYLA; Left flank pain/left upper quadrant pain Seen and examined at bedside; 24hour events reviewed; nursing and respiratory care staff consulted; no adverse overnight events reported to me; resting in bed; Objective Vital Signs - 12hr 01/20/21 01/20/21 01/20/21 04:40 07:40 08:50 Temperature 97.6 F 98.1 F Pulse Rate 76 83 91 H Respiratory 20 22 Rate Blood Pressure 147/87 Blood Pressure 111/78 [Left] O2 Sat by Pulse 100 96 Oximetry 01/20/21 12:01 Temperature 98.9 F Pulse Rate 74 Respiratory 16 Rate Blood Pressure 131/82 Blood Pressure [Left] O2 Sat by Pulse 96 Oximetry CBC and BMP: 01/19/21 11:50 01/19/21 15:22 ABG, PT/INR, D-dimer: PT/INR, D-dimer D-Dimer 869.63 ng/mlDDU (0-234) H 01/18/21 14:47 Abnormal lab findings: Abnormal Labs 01/18/21 01/18/21 01/18/21 13:32 14:47 14:47 WBC 20.9 H Seg Neuts % (Manual) 92.0 H Lymphocytes % (Manual) 5.0 L Seg Neutrophils # Man 19.2 H Lymphocytes # (Manual) 1.0 L D-Dimer 869.63 H Sodium Chloride Carbon Dioxide BUN Creatinine Glucose 102 H Calcium Ferritin AST ALT Alkaline Phosphatase Lactate Dehydrogenase 949 H C-Reactive Protein 23.00 H Albumin Lipase Ur Specific [place] 01/18/21 01/18/21 01/18/21 14:47 15:03 18:31 WBC Seg Neuts % (Manual) Lymphocytes % (Manual) Seg Neutrophils # Man Lymphocytes # (Manual) D-Dimer Sodium 135 L Chloride Carbon Dioxide 21 L BUN 25 H Creatinine 1.5 H Glucose Calcium Ferritin 502.1 H AST 304 H ALT 98 H Alkaline Phosphatase 139 H Lactate Dehydrogenase C-Reactive Protein Albumin 3.8 L Lipase 7 L Ur Specific [place] 1.050 H 01/19/21 01/19/21 11:50 15:22 WBC 26.3 H Seg Neuts % (Manual) 96.0 H Lymphocytes % (Manual) 4.0 L Seg Neutrophils # Man 25.2 H Lymphocytes # (Manual) 1.1 L D-Dimer Sodium 133 L Chloride 96.5 L Carbon Dioxide BUN 27 H Creatinine Glucose 106 H Calcium 8.3 L Ferritin AST ALT Alkaline Phosphatase Lactate Dehydrogenase C-Reactive Protein Albumin Lipase Ur Specific [place]
[2021-01-20] MEDS: ALBUTEROL 2.5 MG/3 ML NEBU IH PRN ×2 (13:10→15:05)
[2021-01-20] MEDS: cefTRIAXone/NS 2 GM/100 ML 2 GM/100 ML BAG IV SCH (13:47)
[2021-01-20] MEDS: AZITHROMYCIN/NS 500 MG/250 ML 500 MG/250 ML BAG IV SCH (13:56)
--- NOTE | 2021-01-20 17:30 | Gastroenterology Consultation ---
History of Present Illness - Reason for Consult Consult date: 01/20/21 abdominal pain Requesting physician: RONAN SHERMAN - History of Present Illness The patient is a 50 yo aam who presents with left sided flank pain/llq abd pain. Pt was hypoxic upon admission, and found to have bilateral lobe pulmonary opacities on imaging. Pt has altered mentation, poor historian, states he has had left flank/lower abd pain "for a long time" (? years per chart review and from what pt says but difficult to obtain clear history). Denies gi bleeding prior to admission. had poor po intake prior to arrival, minimal po intake since being here. found to have elevated liver enzymes on admission, admits to drinking "a lot" of alcohol (daily beer and raya). He was seen by surgery without surgical indication per recommendations. Past History Past Medical History: GERD, other (See HPI) Past Surgical History: Other (Right ankle surgery) Social history: single, smoking Family history: hypertension Medications and Allergies Allergies Allergy/AdvReac Type Severity Reaction Status Date / Time aspirin Allergy "it makes Verified 12/07/20 11:27 my stomach upset" Home Medications Medication Instructions Recorded Confirmed Last Taken Type Acetaminophen [Tylenol Arthritis] 650 mg PO Q6HR PRN #30 tablet.er 05/25/17 Unknown Rx Dicyclomine [Bentyl] 10 mg PO QID PRN #20 capsule 05/25/17 Unknown Rx Ondansetron [Zofran Odt] 4 mg PO QID PRN #20 tab.rapdis 05/25/17 Unknown Rx Dicyclomine [Bentyl] 20 mg PO QID #12 tablet 12/06/17 Unknown Rx Esomeprazole Magnesium [NexIUM] 40 mg PO QDAY #30 capsule.dr 12/07/20 Unknown Rx Ondansetron [Zofran Odt] 4 mg PO Q8HR PRN #14 tab.rapdis 12/07/20 Unknown Rx Active Meds: Active Medications Acetaminophen (Acetaminophen 325 Mg Tab) 650 mg PO Q4H PRN PRN Reason: Pain MILD(1-3)/Fever >100.5/BENTLEY Albuterol (Albuterol 2.5 Mg/3 Ml Nebu) 2.5 mg IH Q4HRT PRN PRN Reason: Shortness Of Breath Last Admin: 01/20/21 15:05 Dose: 2.5 mg Documented by: Ascorbic Acid (Ascorbic Acid 500 Mg Tab) 500 mg PO BID [facility] Last Admin: 01/20/21 11:55 Dose: Not Given Documented by: Chlordiazepoxide HCl (Chlordiazepoxide 25 Mg Cap) 50 mg PO Q1HR PRN PRN Reason: [facility] 07-15 Cholecalciferol (Cholecalciferol (Vit D3) 1000 Unit (25 Mcg) Tab) 1,000 unit PO QDAY [facility] Last Admin: 01/20/21 11:11 Dose: 1,000 unit Documented by: Cyanocobalamin (Cyanocobalamin (Vit B-12) 1000 Mcg Tab) 1,000 mcg PO QDAY [facility] Last Admin: 01/20/21 11:11 Dose: 1,000 mcg Documented by: Folic Acid (Folic Acid 1 Mg Tab) 1 mg PO QDAY [facility] Last Admin: 01/20/21 11:11 Dose: 1 mg Documented by: Heparin Sodium (Porcine) (Heparin 5,000 Unit/1 Ml Vial) 5,000 unit SUB-Q Q12HR [facility] Last Admin: 01/20/21 11:11 Dose: 5,000 unit Documented by: Hydromorphone HCl (Hydromorphone 1 Mg/1 Ml Inj) 0.25 mg IV Q4H PRN PRN Reason: Pain, Moderate (4-6) Last Admin: 01/20/21 04:39 Dose: 0.25 mg Documented by: Ceftriaxone Sodium (Rocephin/Ns 2 Gm/100 Ml) 2 gm in 100 mls @ 200 mls/hr IV Q24HR [facility]; Protocol Stop: 01/22/21 10:29 Last Admin: 01/20/21 13:47 Dose: 200 mls/hr Documented by: Lorazepam (Lorazepam 2 Mg/Ml Vial) 2 mg IV Q4H PRN PRN Reason: [facility] 07-15 Last Admin: 01/20/21 02:44 Dose: 2 mg Documented by: Methylprednisolone Sodium Succinate (Methylprednisolone Sod Succinate 40 Mg/1 Ml Inj) 40 mg IV Q8H [facility] Last Admin: 01/20/21 13:56 Dose: 40 mg Documented by: Metoclopramide HCl (Metoclopramide 10 Mg/2 Ml Inj) 10 mg IV Q6H PRN PRN Reason: Nausea And Vomiting Olanzapine (Olanzapine 5 Mg Tab) 5 mg PO QHS [facility] Ondansetron HCl (Ondansetron 4 Mg/2 Ml Inj) 4 mg IV Q4H PRN PRN Reason: Nausea And Vomiting Last Admin: 01/20/21 02:45 Dose: 4 mg Documented by: Pantoprazole Sodium (Pantoprazole 40 Mg Tab) 40 mg PO QDAC [facility] Sodium Chloride (Sodium Chloride 0.9% 10 Ml Flush Syringe) 10 ml IV BID [facility] Last Admin: 01/20/21 11:11 Dose: 10 ml Documented by: Sodium Chloride (Sodium Chloride 0.9% 10 Ml Flush Syringe) 10 ml IV PRN PRN PRN Reason: LINE FLUSH Thiamine HCl (Thiamine 100 Mg Tab) 100 mg PO QDAY [facility] Last Admin: 01/20/21 11:11 Dose: 100 mg Documented by: Valproic Acid (Valproic Acid 250 Mg/5 Ml Oral Liqd) 250 mg PO BID LEE Zinc Sulfate (Zinc Sulfate 220 Mg Cap) 220 mg PO BID [facility] Last Admin: 01/20/21 11:55 Dose: Not Given Documented by: Reviewed/updated patient's home and current medications Review of Systems - Review of Systems ROS unobtainable: due to mental status (per HPI) All systems: negative Exam - Constitutional Vital Signs: Temp Pulse Resp BP Pulse Ox 99.5 F 93 H 24 139/86 95 01/20/21 16:25 01/20/21 16:25 01/20/21 16:25 01/20/21 16:25 01/20/21 16:25 General appearance: no acute distress, other (slow to answer questions, + conf usion) - Neck Neck: supple, normal ROM - Respiratory Respiratory effort: normal Respiratory: bilateral: rhonchi - Cardiovascular Rhythm: regular Heart Sounds: Present: S1 & S2 - Gastrointestinal General gastrointestinal: Present: soft, tender (left llq/flank), non-distended, normal bowel sounds - Neurologic Neurological: oriented to person, oriented to place - Labs CBC & Chem 7: 01/19/21 11:50 01/19/21 15:22 - Imaging CT Scan: report reviewed Assessment and Plan 1. Abnormal liver enzymes - primarily hepatocellular with AST> ALT, in setting of reported daily alcohol use, suspect alcoholic liver disease, may also have component of sepsis induced elevation. ct without signs of biliary dilatation or liver abnormalities per report. trend labs, check viral hepatitis serologies, counseled on alcohol cessation.2 2. Left flank/lower abdominal pain - difficult to obtain accurate history from pt regarding duration but could be chronic per chart review and he says it's been going on "a long time". has bilateral pulmonary opacities on imaging, ? referred pain, vs related to prior wound, no obvious gi source on ct. okay for po intake as tolerated from gi stand point. management of suspected sepsis per primary
--- NOTE | 2021-01-20 17:57 | Ultrasound Report ---
ULTRASOUND RENAL INDICATION / CLINICAL INFORMATION: abdominal pain. COMPARISON: Prior CT abdomen and pelvis dated 01/19/2021. FINDINGS: RIGHT KIDNEY: Length = 10.7 cm. - Echogenicity: Minimally increased parenchymal echogenicity. - Cortical Thickness: Normal. - Hydronephrosis: None. - Cyst or mass: No significant abnormality. - Stones: None seen. LEFT KIDNEY: Length = 11.7 cm. - Echogenicity: Minimally increased parenchymal echogenicity. - Cortical Thickness: Normal. - Hydronephrosis: None. - Cyst or mass: No significant abnormality. - Stones: None seen. URINARY BLADDER: No significant abnormality. FREE FLUID: None. ADDITIONAL FINDINGS: None. IMPRESSION: 1. Minimally increased peripheral echogenicity may represent medical renal disease. 2. No calcified stones or hydronephrosis Signer Name: Edgardo Curry MD Signed: 01/20/2021 5:52 PM Workstation Name: [id number]
[2021-01-20] MEDS: VALPROIC ACID 250 MG/5 ML ORAL LIQD PO SCH (22:07)
[2021-01-21 05:51] LABS: Hematocrit 45.3 % (35.5-45.6); Mean Corpuscular HGB Conc 33 % (32-34); Mean Corpuscular Volume 95 fl (84-94); Platelet Count 174 K/mm3 (140-440); Red Blood Count 4.76 M/mm3 (3.65-5.03); Red Cell Distribution Width 13.6 % (13.2-15.2)
[2021-01-21 05:52] LABS: BUN/Creatinine Ratio 22; Blood Urea Nitrogen 20 mg/dL (9-20); Calcium 8.6 mg/dL (8.4-10.2); Hemolysis Index 114
[2021-01-21] MEDS: methylPREDNISolone Sod Succinate 40 MG/1 ML INJ IV SCH ×3 (06:16→22:11)
[2021-01-21] MEDS: PANTOPRAZOLE 40 MG TAB PO SCH (06:40)
[2021-01-21] MEDS: HYDROmorphone 1 MG/1 ML INJ IV PRN ×3 (06:52→17:13)
[2021-01-21] MEDS ORDERED: SODIUM POLYSTYRENE 15 GM/60 ML ORAL LIQD PO ONE (07:34)
--- NOTE | 2021-01-21 07:38 | Progress Note ---
Assessment and Plan Assessment and plan: 50 YO Male with PUD, Asthma, Nephrolithiasis, Nicotine Dependence presents to ED for evaluation. Pt reports "My left side hurts". Pt states that he has experienced left flank pain over the past 2 weeks with worsening symptoms over the past several days. EMS was notified and upon arrival the patient was found to be in distress and subsequently transported to [facility] for further care and evaluation of the aforementioned symptoms. The patient was seen and evaluated in the emergency department. All lab and imaging studies reviewed. The patient was found to have a pulse oximetry of 84% on room air which is consistent with acute hypoxemic respiratory failure. The patient was placed on submental oxygen with improvement in symptoms. The patient was also found to have bilateral pneumonia, sepsis, acute kidney injury. Patient admitted to medical floor and initiated on sepsis protocol as well as pneumonia protocol as well as coronavirus protocol. Patient denies fever, chills, chest pain, palpitation, productive cough, skin rash, recent ill contacts, or known exposure to COVID-19. No prior admission for review. All medication listed at time of admission has been reconciled. CT abdomen and pelvis IMPRESSION: 1. Extensive bibasilar groundglass pulmonary opacities with mild parenchymal disease right lower lobe, unchanged. 2. No acute inflammatory process or pneumoperitoneum . No detrimental change since yesterday CT angio chest: IMPRESSION: Extensive basilar predominant groundglass opacities with interlobular septal thickening and developing airspace consolidation of the right lower lobe. Findings are somewhat nonspecific. Differential includes pulmonary alveolar proteinosis, pulmonary edema, diffuse alveolar hemorrhage, or atypical infection, to include pneumocystis and mycoplasma. 01/19: Patient was started on sepsis protocol due to meeting at least 2 of the sepsis criteria with SIRS. Although no fever will continue antibiotics will obtain ID consult for atypical pneumonia while we await for COVID-19 testing. Also requested for records from [facility], [place] and also from [facility]. Patient also has significant alcohol use 15 minutes of counseling has been provided to him we will start him on CIWA protocol. Plan discussed with nursing staff and they will assist with obtaining medical records from both facilities. 01/20: ?underlying ing, Precautions and psych consult for hypoactive delirium. Patient still also on high flow oxygen underlining hypoxia could have contributed to this. Discussed with the psych team. And otherwise we will continue current management for infectious processes and pulmonary evaluation. Still awaiting records from [facility] and [facility], [place]. He remains on high flow oxygen and will wean as tolerated. 01/21: Remains hypoxic, Continue abx, will give Kayxalate for Hyperkalemia. Continue High flow oxygen. GI input noted, will continue to trend Transaminses. Monitor viral hepatitis. Will give a dose of lasix today and start on scheduled Nebs. Still awaiting documents from outside facility. Guarded prognosis. We will obtain CT abdomen and pelvis, with contrast. Lactic acid is normal. Discussed with psych olanzapine will be discontinued in favor of Seroquel (1) Sepsis Current Visit: Yes Status: Acute Plan to address problem: Sepsis protocol: Chest x-ray, CBC, CMP, urinalysis, IV antibiotic therapy, IV fluid resuscitation therapy, serial lactic acid level, maintain mean arterial pressure greater than or equal to 65, blood culture, rapid HIV (2) Acute respiratory failure with hypoxia Current Visit: Yes Status: Acute Plan to address problem: Supplemental oxygen, pulse oximetry, nebulizer therapy, chest x-ray, CT scan chest, pulmonary toilet, if patient is unable to maintain pulse oximetry greater than 80% on submental oxygen will transition patient to high flow submental oxygen. (3) Bilateral pneumonia Current Visit: Yes Status: Acute Plan to address problem: Pneumonia protocol: Chest x-ray, CBC, CMP, CT scan chest, IV antibiotic therapy, supplemental oxygen, pulse oximetry, nebulizer therapy, blood cultures. (4) Elevated liver enzymes Secondary to alcoholic liver disease Current Visit: Yes Status: Acute Plan to address problem: Supportive care, repeat CMP in a.m. (5) EtOH use disorder with possible underlying withdrawal (6)Hypercoagulable state (7) Hyperkalemia (8) DVT prophylaxis Current Visit: Yes Status: Acute Plan to address problem: SCD to bilateral lower extremities while in bed, prophylactic anticoagula The high probability of a clinically significant, sudden or life threatening deterioration of the [pulmonary] system(s) required my full and direct attention, intervention and personal management. The aggregate critical care time was [35] minutes. This time is in addition to time spent performing reporte d procedures but includes the following: [x] Data Review and interpretation [x] Patient assessment and monitoring of vital signs [x] Documentation [x] Medication orders and management History Interval history: Patient seen and examined this morning, was screaming in pain. Physical exam unable to exacerbate the pain. He says that it was after he got a medication I discussed with psych will be changing one of her medications. No known problem with medication or regards to the patient's pain. Question from pumping. Hospitalist Physical - Physical exam Narrative exam: VITAL SIGNS: Reviewed. GENERAL: The patient appears normally developed, this morning in distress screaming in pain no exacerbation. Vital signs as documented. HEAD: No signs of head trauma. EYES: Pupils are equal. Extraocular motions intact. EARS: Hearing grossly intact. MOUTH: Oropharynx is normal. NECK: No adenopathy, no JVD. CHEST: Chest with diminished breath sounds bilaterally. Tachypneic no wheezes, rales, or rhonchi. CARDIAC: Regular rate and rhythm. S1 and S2, without murmurs, gallops, or rubs. VASCULAR: No Edema. Peripheral pulses normal and equal in all extremities. ABDOMEN: Soft, non tender despite patient scream unable to elicit. And non distended. No rebound or guarding, and no masses palpated. Bowel Sounds normal. MUSCULOSKELETAL: Good range of motion of all major joints. Extremities without clubbing, cyanosis or edema. NEUROLOGIC EXAM: Alert and oriented x 3 mild confusion, No focal sensory or strength deficits. Speech normal. Follows commands. PSYCHIATRIC: Mood anxious l. SKIN: detail exam as documented in skin assessment - Constitutional Vitals: Temp Pulse Resp BP Pulse Ox 98.8 F 87 18 134/85 93 01/21/21 05:51 01/21/21 05:51 01/21/21 05:51 01/21/21 05:51 01/21/21 05:51 General appearance: Present: mild distress Results - Labs CBC & Chem 7: 01/21/21 04:27 01/21/21 04:27 Labs: Laboratory Last Values WBC 11.8 K/mm3 (4.5-11.0) H 01/21/21 04:27 RBC 4.76 M/mm3 (3.65-5.03) 01/21/21 04:27 Hgb 15.0 gm/dl (11.8-15.2) 01/21/21 04:27 Hct 45.3 % (35.5-45.6) 01/21/21 04:27 MCV 95 fl (84-94) H 01/21/21 04:27 MCH 32 pg (28-32) 01/21/21 04:27 MCHC 33 % (32-34) 01/21/21 04:27 RDW 13.6 % (13.2-15.2) 01/21/21 04:27 Plt Count 174 K/mm3 (140-440) 01/21/21 04:27 Add Manual Diff Complete 01/19/21 11:50 Total Counted 100 01/19/21 11:50 Seg Neutrophils % Mangle Roller 01/19/21 11:50 Seg Neuts % (Manual) 96.0 % (40.0-70.0) H 01/19/21 11:50 Lymphocytes % (Manual) 4.0 % (13.4-35.0) L 01/19/21 11:50 Monocytes % (Manual) 3.0 % (0.0-7.3) 01/18/21 13:32 Nucleated RBC % Not Reportable 01/19/21 11:50 Seg Neutrophils # Man 25.2 K/mm3 (1.8-7.7) H 01/19/21 11:50 Band Neutrophils # 0.0 K/mm3 01/19/21 11:50 Lymphocytes # (Manual) 1.1 K/mm3 (1.2-5.4) L 01/19/21 11:50 Abs React Lymphs (Man) 0.0 K/mm3 01/19/21 11:50 Monocytes # (Manual) 0.0 K/mm3 (0.0-0.8) 01/19/21 11:50 Eosinophils # (Manual) 0.0 K/mm3 (0.0-0.4) 01/19/21 11:50 Basophils # (Manual) 0.0 K/mm3 (0.0-0.1) 01/19/21 11:50 Metamyelocytes # 0.0 K/mm3 01/19/21 11:50 Myelocytes # 0.0 K/mm3 01/19/21 11:50 Promyelocytes # 0.0 K/mm3 01/19/21 11:50 Blast Cells # 0.0 K/mm3 01/19/21 11:50 WBC Morphology Not Reportable 01/19/21 11:50 Hypersegmented Neuts Not Reportable 01/19/21 11:50 Hyposegmented Neuts Not Reportable 01/19/21 11:50 Hypogranular Neuts Not Reportable 01/19/21 11:50 Smudge Cells Not Reportable 01/19/21 11:50 Toxic Granulation Not Reportable 01/19/21 11:50 Toxic Vacuolation Not Reportable 01/19/21 11:50 Dohle Bodies Not Reportable 01/19/21 11:50 Pelger-Huet Anomaly Not Reportable 01/19/21 11:50 Ricco Rods Not Reportable 01/19/21 11:50 Platelet Estimate Consistent w auto 01/19/21 11:50 Clumped Platelets Not Reportable 01/19/21 11:50 Plt Clumps, EDTA Not Reportable 01/19/21 11:50 Large Platelets Not Reportable 01/19/21 11:50 Giant Platelets Not Reportable 01/19/21 11:50 Platelet Satelliting Not Reportable 01/19/21 11:50 Plt Morphology Comment Not Reportable 01/19/21 11:50 RBC Morphology Normal 01/19/21 11:50 Dimorphic RBCs Not Reportable 01/19/21 11:50 Polychromasia Not Reportable 01/19/21 11:50 Hypochromasia Not Reportable 01/19/21 11:50 Poikilocytosis Not Reportable 01/19/21 11:50 Anisocytosis Not Reportable 01/19/21 11:50 Microcytosis Not Reportable 01/19/21 11:50 Macrocytosis Not Reportable 01/19/21 11:50 Spherocytes Not Reportable 01/19/21 11:50 Pappenheimer Bodies Not Reportable 01/19/21 11:50 Sickle Cells Not Reportable 01/19/21 11:50 Target Cells Not Reportable 01/19/21 11:50 Tear Drop Cells Not Reportable 01/19/21 11:50 Ovalocytes Not Reportable 01/19/21 11:50 Helmet Cells Not Reportable 01/19/21 11:50 [place] Bodies Not Reportable 01/19/21 11:50 Ryan Rings Not Reportable 01/19/21 11:50 [place] Cells Not Reportable 01/19/21 11:50 Bite Cells Not Reportable 01/19/21 11:50 Crenated Cell Not Reportable 01/19/21 11:50 Elliptocytes Not Reportable 01/19/21 11:50 Acanthocytes (Spur) Not Reportable 01/19/21 11:50 Rouleaux Not Reportable 01/19/21 11:50 Hemoglobin C Crystals Not Reportable 01/19/21 11:50 Schistocytes Not Reportable 01/19/21 11:50 Malaria parasites Not Reportable 01/19/21 11:50 Danny Bodies Not Reportable 01/19/21 11:50 Hem Pathologist Commnt No 01/19/21 11:50 D-Dimer 869.63 ng/mlDDU (0-234) H 01/18/21 14:47 Sodium 136 mmol/L (137-145) L 01/21/21 04:27 Potassium 5.5 mmol/L (3.6-5.0) H 01/21/21 04:27 Chloride 100.5 mmol/L (98-107) 01/21/21 04:27 Carbon Dioxide 22 mmol/L (22-30) 01/21/21 04:27 Anion Gap 19 mmol/L 01/21/21 04:27 BUN 20 mg/dL (9-20) 01/21/21 04:27 Creatinine 0.9 mg/dL (0.8-1.3) 01/21/21 04:27 Estimated GFR > 60 ml/min 01/21/21 04:27 BUN/Creatinine Ratio 22 % 01/21/21 04:27 Glucose 118 mg/dL (75-100) H 01/21/21 04:27 Lactic Acid 1.30 mmol/L (0.7-2.0) 01/18/21 21:36 Calcium 8.6 mg/dL (8.4-10.2) 01/21/21 04:27 Ferritin 502.1 ng/mL (30.0-300.0) H 01/18/21 14:47 Total Bilirubin 1.10 mg/dL (0.1-1.2) 01/18/21 15:03 AST 304 units/L (5-40) H 01/18/21 15:03 ALT 98 units/L (7-56) H 01/18/21 15:03 Alkaline Phosphatase 139 units/L (35-129) H 01/18/21 15:03 Lactate Dehydrogenase 949 units/L (91-180) H 01/18/21 14:47 C-Reactive Protein 23.00 mg/dL (0.00-1.30) H 01/18/21 14:47 Total Protein 6.8 g/dL (6.3-8.2) 01/18/21 15:03 Albumin 3.8 g/dL (3.9-5) L 01/18/21 15:03 Albumin/Globulin Ratio 1.3 % 01/18/21 15:03 Lipase 7 units/L (13-60) L 01/18/21 15:03 Procalcitonin 1.52 ng/mL (<0.15) 01/18/21 14:47 Urine Color Yellow (Yellow) 01/18/21 18: Urine Turbidity Clear (Clear) 01/18/21 18: Urine pH 5.0 (5.0-7.0) 01/18/21 18: Ur Specific [place] 1.050 (1.003-1.030) H 01/18/21 18: Urine Protein 30 mg/dl mg/dL (Negative) 01/18/21 18: Urine Glucose (UA) Neg mg/dL (Negative) 01/18/21 18: Urine Ketones 20 mg/dL (Negative) 01/18/21 18: Urine Blood Sm (Negative) 01/18/21 18: Urine Nitrite Neg (Negative) 01/18/21 18: Urine Bilirubin Neg (Negative) 01/18/21 18: Urine Urobilinogen < 2.0 mg/dL (<2.0) 01/18/21 18: Ur Leukocyte Esterase Neg (Negative) 01/18/21 18: Urine WBC (Auto) 1.0 /HPF (0.0-6.0) 01/18/21 18: Urine RBC (Auto) 3.0 /HPF (0.0-6.0) 01/18/21 18: U Epithel Cells (Auto) 1.0 /HPF (0-13.0) 01/18/21 18: Urine Mucus 1+ /HPF 01/18/21 18: Coronavirus (PCR) Negative (Negative) 01/19/21 Unknown HIV 1&2 Antibody Rapid Non react (Non React) 01/18/21 21:36 HIV P24 Antigen Non react (Non React) 01/18/21 21:36 Microbiology: Microbiology 01/18/21 14:52 Peripheral/Venous Blood Culture - Preliminary NO GROWTH AFTER 48 HOURS 01/18/21 14:47 Peripheral/Venous Blood Culture - Preliminary NO GROWTH AFTER 48 HOURS Gomes/IV: Voiding Method Urinal Active Medications - Current Medications Current Medications: Generic Name Dose Route Start Last Admin Trade Name Freq PRN Reason Stop Dose Admin Acetaminophen 650 mg 01/18/21 17:19 Acetaminophen 325 Mg Tab PO Q4H PRN Pain MILD(1-3)/Fever >100.5/BENTLEY Albuterol 2.5 mg 01/18/21 17:19 01/20/21 15:05 Albuterol 2.5 Mg/3 Ml Nebu IH 2.5 mg Q4HRT PRN Administration Shortness Of Breath Ascorbic Acid 500 mg 01/18/21 22:00 01/20/21 22:07 Ascorbic Acid 500 Mg Tab PO 500 mg BID LEE Administration Chlordiazepoxide HCl 50 mg 01/19/21 10:07 Chlordiazepoxide 25 Mg Cap PO Q1HR PRN Balta 8-15 Cholecalciferol 1,000 unit 01/19/21 10:00 01/20/21 11:11 Cholecalciferol (Vit D3) 1000 Unit (25 Mcg) Tab PO 1,000 unit QDAY LEE Administration Cyanocobalamin 1,000 mcg 01/19/21 11:00 01/20/21 11:11 Cyanocobalamin (Vit B-12) 1000 Mcg Tab PO 1,000 mcg QDAY LEE Administration Folic Acid 1 mg 01/19/21 11:00 01/20/21 11:11 Folic Acid 1 Mg Tab PO 1 mg QDAY LEE Administration Heparin Sodium (Porcine) 5,000 unit 01/18/21 22:00 01/20/21 22:06 Heparin 5,000 Unit/1 Ml Vial SUB-Q 5,000 unit Q12HR LEE Administration Hydromorphone HCl 0.25 mg 01/18/21 17:24 01/21/21 06:52 Hydromorphone 1 Mg/1 Ml Inj IV 0.25 mg Q4H PRN Administration Pain, Moderate (4-6) Ceftriaxone Sodium 2 gm in 100 mls @ 200 mls/hr 01/19/21 10:00 01/20/21 13:47 Rocephin/Ns 2 Gm/100 Ml IV 01/22/21 10:29 200 mls/hr Q24HR LEE Administration Protocol Lorazepam 2 mg 01/19/21 10:07 01/20/21 02:44 Lorazepam 2 Mg/Ml Vial IV 2 mg Q4H PRN Administration JAIME-Bo 8-15 Methylprednisolone Sodium Succinate 40 mg 01/18/21 22:00 01/21/21 06:16 Methylprednisolone Sod Succinate 40 Mg/1 Ml Inj IV 40 mg Q8H LEE Administration Metoclopramide HCl 10 mg 01/19/21 14:50 Metoclopramide 10 Mg/2 Ml Inj IV Q6H PRN Nausea And Vomiting Olanzapine 5 mg 01/20/21 22:00 01/20/21 22:07 Olanzapine 5 Mg Tab PO 5 mg QHS LEE Administration Ondansetron HCl 4 mg 01/19/21 14:49 01/20/21 02:45 Ondansetron 4 Mg/2 Ml Inj IV 4 mg Q4H PRN Administration Nausea And Vomiting Pantoprazole Sodium 40 mg 01/21/21 07:30 01/21/21 06:40 Pantoprazole 40 Mg Tab PO 40 mg QDAC LEE Administration Sodium Chloride 10 ml 01/18/21 22:00 01/20/21 22:08 Sodium Chloride 0.9% 10 Ml Flush Syringe IV 10 ml BID LEE Administration Sodium Chloride 10 ml 01/18/21 17:19 Sodium Chloride 0.9% 10 Ml Flush Syringe IV PRN PRN LINE FLUSH Sodium Polystyrene Sulfonate 15 gm 01/21/21 07:34 Sodium Polystyrene 15 Gm/60 Ml Oral Liqd PO 01/21/21 07:35 ONCE ONE Thiamine HCl 100 mg 01/19/21 11:00 01/20/21 11:11 Thiamine 100 Mg Tab PO 100 mg QDAY LEE Administration Valproic Acid 250 mg 01/20/21 22:00 01/20/21 22:07 Valproic Acid 250 Mg/5 Ml Oral Liqd PO 250 mg BID LEE Administration Zinc Sulfate 220 mg 01/18/21 22:00 01/20/21 22:07 Zinc Sulfate 220 Mg Cap PO 220 mg BID LEE Administration Nutrition/Malnutrition Assess - Dietary Evaluation Nutrition/Malnutrition Findings: Nutrition Notes Start: 01/19/21 12:04 Freq: Status: Active Protocol: Document 01/19/21 12:04 AT (Rec: 01/19/21 12:09 AT [id number]) Co-Sign 01/19/21 12:04 MK Nutrition Notes Need for Assessment generated from: teletype technician,MST Initial or Follow up Brief Note Current Diagnosis Acute Kidney Injury,Sepsis, Respiratory Failure Other Pertinent Diagnosis Bilat Pneu, COVID PUI, hx duodenal and gastric ulcers, Gallstones, ETOH dep Current Diet Cardiac Diet Subjective/Other Information Screen for MST of 2. Pt was struggling to speak due to pain during phone call and interview was promptly discontinued. Will follow up for full assessment. Nutrition Intervention Add Supplement/Snack (indicate name/kcal Ensure Enlive daily /protein ) Provides kCal: 350 Provides Protein (gm) 20 Follow-Up By: 01/22/21 Additional Comments F/U for full assessment
[2021-01-21] MEDS ORDERED: FUROSEMIDE 40 MG/4 ML INJ IV ONE (08:01)
--- NOTE | 2021-01-21 08:22 | Progress Note ---
Subjective - Reason for Consult Consult date: 01/21/21 Reason for consult: MHE Requesting physician: RONAN HSERMAN - Chief Complaint Chief complaint: Floor Nurse: Patient has gotten out og bed and ambulated to the toilet during the night. He was advised several times that he needs to call for assistance as his gait is unsteady. Patient non-compliant. Psych Progress Patient seen in room today, appears to be in distress, complaining of pain in stomach, spoke with hospitalist concern patient sudden complaints of pain may have to do with Olazapine given last night. Pt reports pain as physical, less likely for medication induced pain, but Will discontinue per complaints and switch medications. REVIEW OF SYSTEMS Constitutional: Negative for weight loss ENT: Negative for stridor Respiratory: Negative for cough or hemoptysis All other systems reviewed and are negative MENTAL STATUS EXAMINATION General Appearance and Behavior: Age appropriate, good hygiene, wearing appropriate clothes, good eye contact, cooperative polite with questioning. Cooperation: Participating/engaged Psychomotor Behavior: unremarkable and within normal limits Mood: not good Affect and affective range: congruent with mood Thought Process: Fluent/Logical, Thought Content: Within reality, Speech: low volume, slow rate and rhythm, Intellectual Functioning: Average Suicidal Ideation: Denies SI Homicidal Ideation: Denies HI Impulse Control: Unimpaired Insight and Judgment: Normal insight and judgment, Memory: slight imparement Attention: Normal, Orientation: Alert, oriented but intermittent confusion Diagnoses: Assessment and Plan - Patient Problems (1) Acute hypoactive delirium due to another medical condition Current Visit: Yes Status: Acute F05 Treatment Plan Will swicth to haldol 2mg BID MEDICATIONS: Risks, benefits and alternatives of medications discussed with the patient, questions answered and consent obtained from patient. PSYCHOTHERAPY: Supportive psychotherapy provided MEDICAL: Per primary team DELIRIUM PRECAUTIONS: Please re-orient patient frequently, keep lights on during the day, and minimize benzodiazepines and opiates as these medications could worsen patient's confusion. PATIENT ACCESS MANAGER: DISPOSITION: Do Not Recommend acute inpatient psychiatric hospitalization at this time. Case discussed with Dr. Guillen who agrees with current disposition LEGAL STATUS: Voluntary FOLLOW-UP: Will follow Thank you for the consult. Please contact with any questions and/or concerns. Mental Status Exam - Vital signs Last Vital Signs Temp 98.8 F 01/21/21 05:51 Pulse 87 01/21/21 05:51 Resp 18 01/21/21 05:51 BP 134/85 01/21/21 05:51 Pulse Ox 93 01/21/21 05:51 Assessment and Plan - Patient Problems (1) Acute hypoactive delirium due to another medical condition Current Visit: Yes Status: Acute
[2021-01-21] MEDS: IPRATROPIUM/ALBUTEROL SULFATE 3 ML AMPUL.NEB IH SCH ×3 (08:40→21:26)
[2021-01-21] MEDS: LORazepam 2 MG/ML VIAL IV PRN (08:53)
[2021-01-21] MEDS: THIAMINE 100 MG TAB PO SCH (10:27)
[2021-01-21] MEDS: HALOPERIDOL 2 MG TAB PO SCH ×2 (10:27→21:54)
[2021-01-21] MEDS: HEPARIN 5,000 UNIT/1 ML VIAL SUB-Q SCH ×2 (10:27→21:54)
[2021-01-21] MEDS: FOLIC ACID 1 MG TAB PO SCH (10:27)
[2021-01-21] MEDS: CYANOCOBALAMIN (VIT B-12) 1000 MCG TAB PO SCH (10:27)
[2021-01-21] MEDS: ASCORBIC ACID 500 MG TAB PO SCH ×2 (10:27→21:53)
[2021-01-21] MEDS: VALPROIC ACID 250 MG/5 ML ORAL LIQD PO SCH ×2 (10:27→21:53)
[2021-01-21] MEDS: CHOLECALCIFEROL (VIT D3) 1000 UNIT (25 mcg) TAB PO SCH (10:27)
[2021-01-21] MEDS: ZINC SULFATE 220 MG CAP PO SCH ×2 (10:27→22:11)
[2021-01-21] MEDS: ONDANSETRON 4 MG/2 ML INJ IV PRN ×2 (10:27→16:47)
[2021-01-21 11:16] LABS: C-Reactive Protein 6.8 mg/dL (0.00-1.30)
--- NOTE | 2021-01-21 12:14 | Progress Note ---
Assessment and Plan Acute hypoxemic respiratory failure. Person under investigation for COVID-19 infection. Abnormal chest x-ray. Bilateral pneumonia. Possible interstitial lung disease versus acute infectious process. Elevated liver enzymes. History of alcohol abuse with possible withdrawal. Leukocytosis. Elevated serum inflammatory markers including D-dimers and ferritin levels. Acute kidney injury. Left flank pain/left upper quadrant pain - follow COVID-19 test result - continue CIWA protocol - Psych evaluation ongoing - continue to wean supplemental oxygen to keep O2 sats > 92% - continue Bronchodilators (EDELMIRA & LABA) with pulm hygiene per RT - continue to avoid nephrotoxins, renally dose all medications - continue mobility protocols to prevent pressure ulcers - PT/OT as tolerated - prn analgesia per pain score - Wound care per RN/WCT - with glycemic control per SSI for target blood glucose < 180 mg/dL - Smoking cessation strongly counseled at the bedside - home oxygen evaluation at discharge - GI & VTE prophylaxis - Flu & pneumovax per protocol - Pulmonary out patient follow up for PFTs and optimization of respiratory status - continue other care per attending / other consultants COVID-19 SPECIFIC INTERVENTIONS: - Remdesivir as per ID/Pulmonary developed protocols (await COVID test result) - continue systemic steroids empirically - follow repeat COVID tests results - zinc and vitamin C supplementation - Monitor inflammatory markers per facility protocol - ferritin, D-dimer, CRP - therapeutic anticoagulation per system Protocol based on d-dimer and clinical considerations - Continue contact and airborne isolation ... re-evaluate in am & prn Subjective Date of service: 01/21/21 Principal diagnosis: Ac hypoxemic resp failure; PUI COVID-19; Vicente pneumonia; ? ILD; KAYLA Interval history: Patient is seen today for: Acute hypoxemic respiratory failure; PUI COVID-19 infection; Bilateral pneumonia; Possible interstitial lung disease versus acute infectious process; H/O EtOH abuse; KAYLA; Left flank pain/left upper quadrant pain Seen and examined at bedside; 24hour events reviewed; nursing and respiratory care staff consulted; no adverse overnight events reported to me; resting in bed; breathing less labored; denies acute chest pains or palpitations Objective Vital Signs - 12hr 01/21/21 01/21/21 01/21/21 00:18 05:51 08:27 Temperature 97.9 F 98.8 F 98.3 F Pulse Rate 75 87 104 H Respiratory 18 18 20 Rate Blood Pressure 135/84 134/85 130/90 O2 Sat by Pulse 91 93 92 Oximetry 01/21/21 08:40 Temperature Pulse Rate Respiratory Rate Blood Pressure O2 Sat by Pulse 100 Oximetry Constitutional: no acute distress Eyes: non-icteric ENT: oropharynx moist Neck: supple Effort: normal Ascultation: Bilateral: rhonchi (scant) Percussion: Bilateral: not dull Cardiovascular: regular rate and rhythm Gastrointestinal: normoactive bowel sounds, soft, non-tender, non-distended Integumentary: normal Extremities: no cyanosis, no edema, pulses normal, no ischemia or petechiae Neurologic: non-focal exam, pupils equal and round, CN II-XII normal, motor strength normal and Psychiatric: anxious CBC and BMP: 01/22/21 04:14 01/22/21 04:14 ABG, PT/INR, D-dimer: PT/INR, D-dimer D-Dimer 9685.34 ng/mlDDU (0-234) H 01/21/21 10:30 Abnormal lab findings: Abnormal Labs 01/18/21 01/18/21 01/18/21 13:32 14:47 14:47 WBC 20.9 H MCV Seg Neuts % (Manual) 92.0 H Lymphocytes % (Manual) 5.0 L Seg Neutrophils # Man 19.2 H Lymphocytes # (Manual) 1.0 L D-Dimer 869.63 H Sodium Potassium Chloride Carbon Dioxide BUN Creatinine Glucose 102 H Calcium Ferritin AST ALT Alkaline Phosphatase Lactate Dehydrogenase 949 H C-Reactive Protein 23.00 H Albumin Lipase Ur Specific [place]ers 01/18/21 01/18/21 01/18/21 14:47 15:03 18:31 WBC MCV Seg Neuts % (Manual) Lymphocytes % (Manual) Seg Neutrophils # Man Lymphocytes # (Manual) D-Dimer Sodium 135 L Potassium Chloride Carbon Dioxide 21 L BUN 25 H Creatinine 1.5 H Glucose Calcium Ferritin 502.1 H AST 304 H ALT 98 H Alkaline Phosphatase 139 H Lactate Dehydrogenase C-Reactive Protein Albumin 3.8 L Lipase 7 L Ur Specific [place] 1.050 H 01/19/21 01/19/21 01/21/21 11:50 15:22 04:27 WBC 26.3 H 11.8 H MCV 95 H Seg Neuts % (Manual) 96.0 H Lymphocytes % (Manual) 4.0 L Seg Neutrophils # Man 25.2 H Lymphocytes # (Manual) 1.1 L D-Dimer Sodium 133 L Potassium Chloride 96.5 L Carbon Dioxide BUN 27 H Creatinine Glucose 106 H Calcium 8.3 L Ferritin AST ALT Alkaline Phosphatase Lactate Dehydrogenase C-Reactive Protein Albumin Lipase Ur Specific [place] 01/21/21 01/21/21 01/21/21 04:27 10:30 10:30 WBC MCV Seg Neuts % (Manual) Lymphocytes % (Manual) Seg Neutrophils # Man Lymphocytes # (Manual) D-Dimer 9685.34 H Sodium 136 L Potassium 5.5 H Chloride Carbon Dioxide BUN Creatinine Glucose 118 H 135 H Calcium Ferritin AST ALT Alkaline Phosphatase Lactate Dehydrogenase 668 H C-Reactive Protein 6.80 H Albumin Lipase Ur Specific [place] 01/21/21 10:30 WBC MCV Seg Neuts % (Manual) Lymphocytes % (Manual) Seg Neutrophils # Man Lymphocytes # (Manual) D-Dimer Sodium Potassium Chloride Carbon Dioxide BUN Creatinine Glucose Calcium Ferritin 517.7 H AST ALT Alkaline Phosphatase Lactate Dehydrogenase C-Reactive Protein Albumin Lipase Ur Specific [place] Chest x-ray: other (none today) Allied health notes reviewed: nursing
[2021-01-21] MEDS: cefTRIAXone/NS 2 GM/100 ML 2 GM/100 ML BAG IV SCH (14:56)
--- NOTE | 2021-01-21 16:06 | Cat Scan Report ---
CT ABDOMEN AND PELVIS WITH CONTRAST INDICATION / CLINICAL INFORMATION: Abdominal pain. TECHNIQUE: Axial CT images were obtained through the abdomen and pelvis after 100 cc of Omnipaque [address] scans at this location are performed using CT dose reduction for ALARA by means of automat ed exposure control. COMPARISON: CT scans of the abdomen and pelvis dated 12/07/2020, 01/18/2021 and 01/19/2021 FINDINGS: LOWER CHEST: Changes in the lower lung zones have mildly worsened in the interval LIVER: No significant abnormality. GALLBLADDER: No acute abnormality. Vicarious excretion of contrast is again noted. BILE DUCTS: No significant abnormality. PANCREAS: No significant abnormality. SPLEEN: No significant abnormality. ADRENALS: No significant abnormality. RIGHT KIDNEY and URETER: No significant abnormality. LEFT KIDNEY and URETER: No significant abnormality. STOMACH and SMALL BOWEL: No significant abnormality. COLON: No significant abnormality. APPENDIX: No significant abnormality. PERITONEUM: No free fluid. No free air. No fluid collection. LYMPH NODES: No significant adenopathy. AORTA and ARTERIES: No significant abnormality. IVC and VEINS: No significant abnormality. URINARY BLADDER: No significant abnormality. REPRODUCTIVE ORGANS: No significant abnormality. ADDITIONAL FINDINGS: None. SKELETAL SYSTEM: No acute abnormality. IMPRESSION: 1. There is mild worsening parenchymal opacity in the lung bases. 2. No other significant change. Signer Name: Matt Rhodes MD Signed: 01/21/2021 4:01 PM Workstation Name: [id number]
[2021-01-21] MEDS: NICOTINE 21 MG/24 HR PATCH TD SCH (16:43)
[2021-01-22] MEDS: IPRATROPIUM/ALBUTEROL SULFATE 3 ML AMPUL.NEB IH SCH ×4 (02:50→22:18)
[2021-01-22 05:02] LABS: Hematocrit 38.3 % (35.5-45.6); Hemoglobin 12.9 gm/dl (11.8-15.2); Mean Corpuscular HGB Conc 34 % (32-34); Mean Corpuscular Volume 94 fl (84-94); Platelet Count 174 K/mm3 (140-440); Red Blood Count 4.07 M/mm3 (3.65-5.03); Red Cell Distribution Width 13.4 % (13.2-15.2)
[2021-01-22 05:14] LABS: Alanine Aminotransferase 71 units/L (7-56); Albumin 3.6 g/dL (3.9-5); BUN/Creatinine Ratio 22; Blood Urea Nitrogen 24 mg/dL (9-20); Calcium 8.5 mg/dL (8.4-10.2); Hemolysis Index 3
[2021-01-22] MEDS: methylPREDNISolone Sod Succinate 40 MG/1 ML INJ IV SCH ×3 (05:19→21:56)
--- NOTE | 2021-01-22 07:40 | Progress Note ---
Subjective - Reason for Consult Consult date: 01/22/21 Reason for consult: MHE Requesting physician: RONAN SHERMAN - Chief Complaint Chief complaint: Floor Nurse: Patient has gotten out og bed and ambulated to the toilet during the night. He was advised several times that he needs to call for assistance as his gait is unsteady. Patient non-compliant. Psych Progress Patient seen in room today, appears to be in distress, complaining of pain in stomach, spoke with hospitalist concern patient sudden complaints of pain may have to do with Olazapine given last night. Pt reports pain as physical, less likely for medication induced pain, but Will discontinue per complaints and switch medications. REVIEW OF SYSTEMS Constitutional: Negative for weight loss ENT: Negative for stridor Respiratory: Negative for cough or hemoptysis All other systems reviewed and are negative MENTAL STATUS EXAMINATION General Appearance and Behavior: Age appropriate, good hygiene, wearing appropriate clothes, good eye contact, cooperative polite with questioning. Cooperation: Participating/engaged Psychomotor Behavior: unremarkable and within normal limits Mood: not good Affect and affective range: congruent with mood Thought Process: Fluent/Logical, Thought Content: Within reality, Speech: low volume, slow rate and rhythm, Intellectual Functioning: Average Suicidal Ideation: Denies SI Homicidal Ideation: Denies HI Impulse Control: Unimpaired Insight and Judgment: Normal insight and judgment, Memory: slight imparement Attention: Normal, Orientation: Alert, oriented but intermittent confusion Diagnoses: Assessment and Plan - Patient Problems (1) Acute hypoactive delirium due to another medical condition Current Visit: Yes Status: Acute F05 Treatment Plan Will swicth to haldol 2mg BID MEDICATIONS: Risks, benefits and alternatives of medications discussed with the patient, questions answered and consent obtained from patient. PSYCHOTHERAPY: Supportive psychotherapy provided MEDICAL: Per primary team DELIRIUM PRECAUTIONS: Please re-orient patient frequently, keep lights on during the day, and minimize benzodiazepines and opiates as these medications could worsen patient's confusion. 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 Case discussed with Dr. Guillen who agrees with current disposition LEGAL STATUS: Voluntary FOLLOW-UP: Will follow Thank you for the consult. Please contact with any questions and/or concerns. Mental Status Exam - Vital signs Last Vital Signs Temp 98.4 F 01/22/21 03:52 Pulse 90 01/22/21 03:52 Resp 17 01/22/21 03:52 BP 133/85 01/22/21 03:52 Pulse Ox 94 01/22/21 03:53 Assessment and Plan - Patient Problems (1) Acute hypoactive delirium due to another medical condition Current Visit: Yes Status: Acute
--- NOTE | 2021-01-22 09:23 | Progress Note ---
Assessment and Plan Assessment and plan: 50 YO Male with PUD, Asthma, Nephrolithiasis, Nicotine Dependence presents to ED for evaluation. Pt reports "My left side hurts". Pt states that he has experienced left flank pain over the past 2 weeks with worsening symptoms over the past several days. EMS was notified and upon arrival the patient was found to be in distress and subsequently transported to [facility] for further care and evaluation of the aforementioned symptoms. The patient was seen and evaluated in the emergency department. All lab and imaging studies reviewed. The patient was found to have a pulse oximetry of 84% on room air which is consistent with acute hypoxemic respiratory failure. The patient was placed on submental oxygen with improvement in symptoms. The patient was also found to have bilateral pneumonia, sepsis, acute kidney injury. Patient admitted to medical floor and initiated on sepsis protocol as well as pneumonia protocol as well as coronavirus protocol. Patient denies fever, chills, chest pain, palpitation, productive cough, skin rash, recent ill contacts, or known exposure to COVID-19. No prior admission for review. All medication listed at time of admission has been reconciled. CT abdomen and pelvis IMPRESSION: 1. Extensive bibasilar groundglass pulmonary opacities with mild parenchymal disease right lower lobe, unchanged. 2. No acute inflammatory process or pneumoperitoneum . No detrimental change since yesterday CT angio chest: IMPRESSION: Extensive basilar predominant groundglass opacities with interlobular septal thickening and developing airspace consolidation of the right lower lobe. Findings are somewhat nonspecific. Differential includes pulmonary alveolar proteinosis, pulmonary edema, diffuse alveolar hemorrhage, or atypical infection, to include pneumocystis and mycoplasma. 01/19: Patient was started on sepsis protocol due to meeting at least 2 of the sepsis criteria with SIRS. Although no fever will continue antibiotics will obtain ID consult for atypical pneumonia while we await for COVID-19 testing. Also requested for records from [facility] and also from [facility]. Patient also has significant alcohol use 15 minutes of counseling has been provided to him we will start him on CIWA protocol. Plan discussed with nursing staff and they will assist with obtaining medical records from both facilities. 01/20: ?underlying ing, Precautions and psych consult for hypoactive delirium. Patient still also on high flow oxygen underlining hypoxia could have contributed to this. Discussed with the psych team. And otherwise we will continue current management for infectious processes and pulmonary evaluation. Still awaiting records from [facility] and [facility]. He remains on high flow oxygen and will wean as tolerated. 01/21: Remains hypoxic, Continue abx, will give Kayxalate for Hyperkalemia. Continue High flow oxygen. GI input noted, will continue to trend Transaminses. Monitor viral hepatitis. Will give a dose of lasix today and start on scheduled Nebs. Still awaiting documents from outside facility. Guarded prognosis. We will obtain CT abdomen and pelvis, with contrast. Lactic acid is normal. Discussed with psych olanzapine will be discontinued in favor of Seroquel 01/22: Patient appears to have an underlying psychiatric condition. He self induces himself to vomit. Any reflux activity elicits pain. Physical exam is generally benign during this pain episode. I discussed with GI considering that his oxygen saturation has improved and he is down to 2 L nasal cannula they will consider doing an endoscopy to rule out severe esophageal gastritis. We will start the patient on Diflucan today. In my opinion after GI evaluation patient can be discharged unless otherwise by psychiatry team. Recurrent CT of the abdomen and pelvis has been negative. 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 Repeat D-dimer has also been ordered to verify. No evidence of VTE is noted anywhere. (1) Sepsis Current Visit: Yes Status: Acute Plan to address problem: Sepsis protocol: Chest x-ray, CBC, CMP, urinalysis, IV antibiotic therapy, IV fluid resuscitation therapy, serial lactic acid level, maintain mean arterial pressure greater than or equal to 65, blood culture, rapid HIV (2) Acute respiratory failure with hypoxia Current Visit: Yes Status: Acute Plan to address problem: Supplemental oxygen, pulse oximetry, nebulizer therapy, chest x-ray, CT scan chest, pulmonary toilet, if patient is unable to maintain pulse oximetry greater than 80% on submental oxygen will transition patient to high flow submental oxygen. (3) Bilateral pneumonia Current Visit: Yes Status: Acute Plan to address problem: Pneumonia protocol: Chest x-ray, CBC, CMP, CT scan chest, IV antibiotic therapy, supplemental oxygen, pulse oximetry, nebulizer therapy, blood cultures. (4) Elevated liver enzymes Secondary to alcoholic liver disease Current Visit: Yes Status: Acute Plan to address problem: Supportive care, repeat CMP in a.m. (5) EtOH use disorder with possible underlying withdrawal (6)Hypercoagulable state (7) Hyperkalemia (8) DVT prophylaxis Current Visit: Yes Status: Acute Plan to address problem: SCD to bilateral lower extremities while in bed, prophylactic anticoagula History Interval history: Patient seen and examined this morning, patient reports pain with any p.o. intake. Discussed with nurse patient was seen yesterday self inducing vomiting. And after he did this he also started yelling again for pain. His oxygen has been weaned down to 2 L nasal cannula with saturation of 94%. Hospitalist Physical - Physical exam Narrative exam: VITAL SIGNS: Reviewed. GENERAL: The patient appears normally developed, this morning in distress screaming in pain no exacerbation. Vital signs as documented. HEAD: No signs of head trauma. EYES: Pupils are equal. Extraocular motions intact. EARS: Hearing grossly intact. MOUTH: Oropharynx is normal. NECK: No adenopathy, no JVD. CHEST: Chest with diminished breath sounds bilaterally. Tachypneic no wheezes, rales, or rhonchi. CARDIAC: Regular rate and rhythm. S1 and S2, without murmurs, gallops, or rubs. VASCULAR: No Edema. Peripheral pulses normal and equal in all extremities. ABDOMEN: Soft, non tender despite patient scream unable to elicit. And non distended. No rebound or guarding, and no masses palpated. Bowel Sounds normal. MUSCULOSKELETAL: Good range of motion of all major joints. Extremities without clubbing, cyanosis or edema. NEUROLOGIC EXAM: Alert and oriented x 3 mild confusion, No focal sensory or strength deficits. Speech normal. Follows commands. PSYCHIATRIC: Mood anxious l. SKIN: detail exam as documented in skin assessment - Constitutional Vitals: Temp Pulse Resp BP Pulse Ox 98.4 F 90 17 133/85 94 01/22/21 03:52 01/22/21 03:52 01/22/21 03:52 01/22/21 03:52 01/22/21 09:03 General appearance: Present: mild distress Results - Labs CBC & Chem 7: 01/22/21 04:14 01/22/21 04:14 Labs: Laboratory Last Values WBC 10.7 K/mm3 (4.5-11.0) 01/22/21 04:14 RBC 4.07 M/mm3 (3.65-5.03) 01/22/21 04:14 Hgb 12.9 gm/dl (11.8-15.2) 01/22/21 04:14 Hct 38.3 % (35.5-45.6) D 01/22/21 04:14 MCV 94 fl (84-94) 01/22/21 04:14 MCH 32 pg (28-32) 01/22/21 04:14 MCHC 34 % (32-34) 01/22/21 04:14 RDW 13.4 % (13.2-15.2) 01/22/21 04:14 Plt Count 174 K/mm3 (140-440) 01/22/21 04:14 Add Manual Diff Complete 01/19/21 11:50 Total Counted 100 01/19/21 11:50 Seg Neutrophils % Cloth Mercerizer Operator 01/19/21 11:50 Seg Neuts % (Manual) 96.0 % (40.0-70.0) H 01/19/21 11:50 Lymphocytes % (Manual) 4.0 % (13.4-35.0) L 01/19/21 11:50 Monocytes % (Manual) 3.0 % (0.0-7.3) 01/18/21 13:32 Nucleated RBC % Not Reportable 01/19/21 11:50 Seg Neutrophils # Man 25.2 K/mm3 (1.8-7.7) H 01/19/21 11:50 Band Neutrophils # 0.0 K/mm3 01/19/21 11:50 Lymphocytes # (Manual) 1.1 K/mm3 (1.2-5.4) L 01/19/21 11:50 Abs React Lymphs (Man) 0.0 K/mm3 01/19/21 11:50 Monocytes # (Manual) 0.0 K/mm3 (0.0-0.8) 01/19/21 11:50 Eosinophils # (Manual) 0.0 K/mm3 (0.0-0.4) 01/19/21 11:50 Basophils # (Manual) 0.0 K/mm3 (0.0-0.1) 01/19/21 11:50 Metamyelocytes # 0.0 K/mm3 01/19/21 11:50 Myelocytes # 0.0 K/mm3 01/19/21 11:50 Promyelocytes # 0.0 K/mm3 01/19/21 11:50 Blast Cells # 0.0 K/mm3 01/19/21 11:50 WBC Morphology Not Reportable 01/19/21 11:50 Hypersegmented Neuts Not Reportable 01/19/21 11:50 Hyposegmented Neuts Not Reportable 01/19/21 11:50 Hypogranular Neuts Not Reportable 01/19/21 11:50 Smudge Cells Not Reportable 01/19/21 11:50 Toxic Granulation Not Reportable 01/19/21 11:50 Toxic Vacuolation Not Reportable 01/19/21 11:50 Dohle Bodies Not Reportable 01/19/21 11:50 Pelger-Huet Anomaly Not Reportable 01/19/21 11:50 Ricco Rods Not Reportable 01/19/21 11:50 Platelet Estimate Consistent w auto 01/19/21 11:50 Clumped Platelets Not Reportable 01/19/21 11:50 Plt Clumps, EDTA Not Reportable 01/19/21 11:50 Large Platelets Not Reportable 01/19/21 11:50 Giant Platelets Not Reportable 01/19/21 11:50 Platelet Satelliting Not Reportable 01/19/21 11:50 Plt Morphology Comment Not Reportable 01/19/21 11:50 RBC Morphology Normal 01/19/21 11:50 Dimorphic RBCs Not Reportable 01/19/21 11:50 Polychromasia Not Reportable 01/19/21 11:50 Hypochromasia Not Reportable 01/19/21 11:50 Poikilocytosis Not Reportable 01/19/21 11:50 Anisocytosis Not Reportable 01/19/21 11:50 Microcytosis Not Reportable 01/19/21 11:50 Macrocytosis Not Reportable 01/19/21 11:50 Spherocytes Not Reportable 01/19/21 11:50 Pappenheimer Bodies Not Reportable 01/19/21 11:50 Sickle Cells Not Reportable 01/19/21 11:50 Target Cells Not Reportable 01/19/21 11:50 Tear Drop Cells Not Reportable 01/19/21 11:50 Ovalocytes Not Reportable 01/19/21 11:50 Helmet Cells Not Reportable 01/19/21 11:50 Baez-Mehama Bodies Not Reportable 01/19/21 11:50 Essie Rings Not Reportable 01/19/21 11:50 [place] Cells Not Reportable 01/19/21 11:50 Bite Cells Not Reportable 01/19/21 11:50 Crenated Cell Not Reportable 01/19/21 11:50 Elliptocytes Not Reportable 01/19/21 11:50 Acanthocytes (Spur) Not Reportable 01/19/21 11:50 Rouleaux Not Reportable 01/19/21 11:50 Hemoglobin C Crystals Not Reportable 01/19/21 11:50 Schistocytes Not Reportable 01/19/21 11:50 Malaria parasites Not Reportable 01/19/21 11:50 Danny Bodies Not Reportable 01/19/21 11:50 Hem Pathologist Commnt No 01/19/21 11:50 D-Dimer 9685.34 ng/mlDDU (0-234) H 01/21/21 10:30 Sodium 137 mmol/L (137-145) 01/22/21 04:14 Potassium 4.4 mmol/L (3.6-5.0) 01/22/21 04:14 Chloride 98.9 mmol/L (98-107) 01/22/21 04:14 Carbon Dioxide 28 mmol/L (22-30) 01/22/21 04:14 Anion Gap 15 mmol/L 01/22/21 04:14 BUN 24 mg/dL (9-20) H 01/22/21 04:14 Creatinine 1.1 mg/dL (0.8-1.3) 01/22/21 04:14 Estimated GFR > 60 ml/min 01/22/21 04:14 BUN/Creatinine Ratio 22 % 01/22/21 04:14 Glucose 122 mg/dL (75-100) H 01/22/21 04:14 Lactic Acid 1.30 mmol/L (0.7-2.0) 01/18/21 21:36 Calcium 8.5 mg/dL (8.4-10.2) 01/22/21 04:14 Ferritin 517.7 ng/mL (30.0-300.0) H 01/21/21 10:30 Total Bilirubin 0.50 mg/dL (0.1-1.2) 01/22/21 04:14 AST 39 units/L (5-40) 01/22/21 04:14 ALT 71 units/L (7-56) H 01/22/21 04:14 Alkaline Phosphatase 69 units/L (35-129) 01/22/21 04:14 Lactate Dehydrogenase 668 units/L (91-180) H 01/21/21 10:30 C-Reactive Protein 6.80 mg/dL (0.00-1.30) H 01/21/21 10:30 Total Protein 6.7 g/dL (6.3-8.2) 01/22/21 04:14 Albumin 3.6 g/dL (3.9-5) L 01/22/21 04:14 Albumin/Globulin Ratio 1.2 % 01/22/21 04:14 Lipase 7 units/L (13-60) L 01/18/21 15:03 Procalcitonin 0.32 ng/mL (<0.15) 01/21/21 10:30 Urine Color Yellow (Yellow) 01/18/21 18:31 Urine Turbidity Clear (Clear) 01/18/21 18: Urine pH 5.0 (5.0-7.0) 01/18/21 18:31 Ur Specific [place] 1.050 (1.003-1.030) H 01/18/21 18:31 Urine Protein 30 mg/dl mg/dL (Negative) 01/18/21 18: Urine Glucose (UA) Neg mg/dL (Negative) 01/18/21 18: Urine Ketones 20 mg/dL (Negative) 01/18/21 18:31 Urine Blood Sm (Negative) 01/18/21 18: Urine Nitrite Neg (Negative) 01/18/21 18: Urine Bilirubin Neg (Negative) 01/18/21 18: Urine Urobilinogen < 2.0 mg/dL (<2.0) 01/18/21 18:31 Ur Leukocyte Esterase Neg (Negative) 01/18/21 18:31 Urine WBC (Auto) 1.0 /HPF (0.0-6.0) 01/18/21 18: Urine RBC (Auto) 3.0 /HPF (0.0-6.0) 01/18/21 18: U Epithel Cells (Auto) 1.0 /HPF (0-13.0) 01/18/21 18: Urine Mucus 1+ /HPF 01/18/21 18:31 Coronavirus (PCR) Negative (Negative) 01/21/21 08:02 HIV 1&2 Antibody Rapid Non react (Non React) 01/18/21 21:36 HIV P24 Antigen Non react (Non React) 01/18/21 21:36 Microbiology: Microbiology 01/18/21 14:52 Peripheral/Venous Blood Culture - Preliminary NO GROWTH AFTER 72 HOURS 01/18/21 14:47 Peripheral/Venous Blood Culture - Preliminary NO GROWTH AFTER 72 HOURS Gomes/IV: Voiding Method Urinal Active Medications - Current Medications Current Medications: Generic Name Dose Route Start Last Admin Trade Name Freq PRN Reason Stop Dose Admin Acetaminophen 650 mg 01/18/21 17:19 Acetaminophen 325 Mg Tab PO Q4H PRN Pain MILD(1-3)/Fever >100.5/BENTLEY Albuterol 2.5 mg 01/18/21 17:19 01/20/21 15:05 Albuterol 2.5 Mg/3 Ml Nebu IH 2.5 mg Q4HRT PRN Administration Shortness Of Breath Albuterol/Ipratropium 1 ampul 01/21/21 08:00 01/22/21 09:04 Ipratropium/Albuterol Sulfate 3 Ml Ampul.Neb IH Not Given Q6HRT LEE Ascorbic Acid 500 mg 01/18/21 22:00 01/21/21 21:53 Ascorbic Acid 500 Mg Tab PO 500 mg BID LEE Administration Chlordiazepoxide HCl 50 mg 01/19/21 10:07 Chlordiazepoxide 25 Mg Cap PO Q1HR PRN CIWA-Ar 8-15 Cholecalciferol 1,000 unit 01/19/21 10:00 01/21/21 10:27 Cholecalciferol (Vit D3) 1000 Unit (25 Mcg) Tab PO 1,000 unit QDAY LEE Administration Cyanocobalamin 1,000 mcg 01/19/21 11:00 01/21/21 10:27 Cyanocobalamin (Vit B-12) 1000 Mcg Tab PO 1,000 mcg QDAY LEE Administration Folic Acid 1 mg 01/19/21 11:00 01/21/21 10:27 Folic Acid 1 Mg Tab PO 1 mg QDAY LEE Administration Heparin Sodium (Porcine) 5,000 unit 01/18/21 22:00 01/21/21 21:54 Heparin 5,000 Unit/1 Ml Vial SUB-Q 5,000 unit Q12HR LEE Administration Hydromorphone HCl 0.25 mg 01/18/21 17:24 01/21/21 17:13 Hydromorphone 1 Mg/1 Ml Inj IV 0.25 mg Q4H PRN Administration Pain, Moderate (4-6) Ceftriaxone Sodium 2 gm in 100 mls @ 200 mls/hr 01/19/21 10:00 01/21/21 14:56 Rocephin/Ns 2 Gm/100 Ml IV 01/22/21 10:29 200 mls/hr Q24HR LEE Administration Protocol Thiamine HCl 100 mg/ Sodium 51 mls @ 100 mls/hr 01/22/21 10:00 Chloride IV QDAY LEE Lorazepam 2 mg 01/19/21 10:07 01/21/21 08:53 Lorazepam 2 Mg/Ml Vial IV 2 mg Q4H PRN Administration Balta 8-15 Methylprednisolone Sodium Succinate 40 mg 01/18/21 22:00 01/22/21 05:19 Methylprednisolone Sod Succinate 40 Mg/1 Ml Inj IV 40 mg Q8H LEE Administration Metoclopramide HCl 10 mg 01/19/21 14:50 Metoclopramide 10 Mg/2 Ml Inj IV Q6H PRN Nausea And Vomiting Nicotine 21 mg 01/21/21 17:00 01/21/21 16:43 Nicotine 21 Mg/24 Hr Patch TD 21 mg QDAY LEE Administration Ondansetron HCl 4 mg 01/19/21 14:49 01/21/21 16:47 Ondansetron 4 Mg/2 Ml Inj IV 4 mg Q4H PRN Administration Nausea And Vomiting Pantoprazole Sodium 40 mg 01/21/21 07:30 01/21/21 06:40 Pantoprazole 40 Mg Tab PO 40 mg QDAC LEE Administration Sodium Chloride 10 ml 01/18/21 22:00 01/21/21 22:06 Sodium Chloride 0.9% 10 Ml Flush Syringe IV 10 ml BID LEE Administration Sodium Chloride 10 ml 01/18/21 17:19 Sodium Chloride 0.9% 10 Ml Flush Syringe IV PRN PRN LINE FLUSH Valproic Acid 250 mg 01/20/21 22:00 01/21/21 21:53 Valproic Acid 250 Mg/5 Ml Oral Liqd PO 250 mg BID LEE Administration Zinc Sulfate 220 mg 01/18/21 22:00 01/21/21 22:11 Zinc Sulfate 220 Mg Cap PO 220 mg BID LEE Administration Nutrition/Malnutrition Assess - Dietary Evaluation Nutrition/Malnutrition Findings: Nutrition Notes Start: 01/19/21 12:04 Freq: Status: Active Protocol: Document 01/22/21 09:07 CW (Rec: 01/22/21 09:16 CW [id number]) Nutrition Notes Need for Assessment 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 No Is Patient Ambulatory and/or Out of Bed Yes REE-([facility]-ambulatory/OOB) [ 2191.696 [id number]] Calculation Used for Recommendations [facility] Additional Notes protein needs:64 - 95g (0.8 - 1.2 g/kgBW for KAYLA) Fluid needs: 1 ml/kcal or per MD order Nutrition Intervention Change Diet Order: Continue Cardiac Diet Add Supplement/Snack (indicate name/kcal Ensure Enlive daily /protein ) Provides kCal: 350 Provides Protein (gm) 20 Goal #1 PO intake of at least 75% of kcal and protein needs Anticipated Discharge Needs: Cardiac Diet Follow-Up By: 01/24/21 Additional Comments F/U for PO intakes and ONS tolerance
--- NOTE | 2021-01-22 09:34 | Progress Note ---
Subjective - Reason for Consult Consult date: 01/22/21 Reason for consult: MHE Requesting physician: RONAN SHERMAN - Chief Complaint Chief complaint: Floor Nurse: Patient was crying loudly complaining of severe nausea and wanting to vomit, no vomiting noted, was medicated with Zofran, same was effective, patient became calm and went to sleep. Psych Progress Patient seen in room today, appears to be in distress again today with stomach complaints, pt gorman had 3 CTs of abdomen with negative findings except for worsening lung opacities. Concern symptoms are mainly psychological. REVIEW OF SYSTEMS Constitutional: Negative for weight loss ENT: Negative for stridor Respiratory: Negative for cough or hemoptysis All other systems reviewed and are negative MENTAL STATUS EXAMINATION General Appearance and Behavior: Age appropriate, good hygiene, wearing appropriate clothes, good eye contact, cooperative polite with questioning. Cooperation: Participating/engaged Psychomotor Behavior: unremarkable and within normal limits Mood: not good Affect and affective range: congruent with mood Thought Process: Fluent/Logical, Thought Content: Within reality, Speech: low volume, slow rate and rhythm, Intellectual Functioning: Average Suicidal Ideation: Denies SI Homicidal Ideation: Denies HI Impulse Control: Unimpaired Insight and Judgment: Normal insight and judgment, Memory: slight imparement Attention: Normal, Orientation: Alert, oriented but intermittent confusion Diagnoses: Assessment and Plan - Patient Problems (1) Acute hypoactive delirium due to another medical condition Current Visit: Yes Status: Acute F05 Treatment Plan Concern for Psychosomatic disorder. Will swicth to Geodon BID. MEDICATIONS: Risks, benefits and alternatives of medications discussed with the patient, questions answered and consent obtained from patient. PSYCHOTHERAPY: Supportive psychotherapy provided MEDICAL: Per primary team DELIRIUM PRECAUTIONS: Please re-orient patient frequently, keep lights on during the day, and minimize benzodiazepines and opiates as these medications could worsen patient's confusion. 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 Case discussed with Dr. Guillen who agrees with current disposition LEGAL STATUS: Voluntary FOLLOW-UP: Will follow Thank you for the consult. Please contact with any questions and/or concerns. Mental Status Exam - Vital signs Last Vital Signs Temp 98.4 F 01/22/21 03:52 Pulse 90 01/22/21 03:52 Resp 17 01/22/21 03:52 BP 133/85 01/22/21 03:52 Pulse Ox 94 01/22/21 09:03 Assessment and Plan - Patient Problems (1) Acute hypoactive delirium due to another medical condition Current Visit: Yes Status: Acute
[2021-01-22] MEDS ORDERED: LORazepam 2 MG/ML VIAL IM PRN (10:00)
[2021-01-22] MEDS: NICOTINE 21 MG/24 HR PATCH TD SCH (10:35)
[2021-01-22] MEDS: VALPROIC ACID 250 MG/5 ML ORAL LIQD PO SCH ×2 (10:35→21:58)
[2021-01-22] MEDS: CYANOCOBALAMIN (VIT B-12) 1000 MCG TAB PO SCH (10:36)
[2021-01-22] MEDS: ASCORBIC ACID 500 MG TAB PO SCH ×2 (10:36→21:56)
[2021-01-22] MEDS: ZINC SULFATE 220 MG CAP PO SCH ×2 (10:36→21:56)
[2021-01-22] MEDS: HEPARIN 5,000 UNIT/1 ML VIAL SUB-Q SCH ×2 (10:36→21:56)
[2021-01-22] MEDS: FOLIC ACID 1 MG TAB PO SCH (10:36)
[2021-01-22] MEDS: THIAMINE 100 MG in SODIUM CHLORIDE 0.9% 50 ML IV SCH (10:57)
[2021-01-22] MEDS ORDERED: FLUCONAZOLE 100 MG TAB PO ONE (11:00)
[2021-01-22] MEDS: PANTOPRAZOLE 40 MG TAB PO SCH (11:26)
[2021-01-22] MEDS: CHOLECALCIFEROL (VIT D3) 1000 UNIT (25 mcg) TAB PO SCH (11:32)
[2021-01-22] MEDS ORDERED: cefTRIAXone/NS 2 GM/100 ML 2 GM/100 ML BAG IV ONE (12:00)
[2021-01-22] MEDS: LORazepam 2 MG/ML VIAL IV PRN ×2 (12:50→16:15)
[2021-01-22] MEDS: cefTRIAXone/NS 2 GM/100 ML 2 GM/100 ML BAG IV SCH (12:54)
--- NOTE | 2021-01-22 14:13 | Gastroenterology Progress Note ---
Assessment and Plan Abdominal pain - unclear etiology, suspect psychiatric component, ct neg x 3. liver enzymes much better on f/u labs. consider EGD (r/o PUD, questionable history but no report of this here or in [facility]), however his mental state is not in condition for endoscopy at present time. abnormal liver enzymes - improved on f/u labs, h/o alcohol abuse, suspect alcoholic liver disease. monitor for now Subjective Date of service: 01/22/21 Principal diagnosis: Ac hypoxemic resp failure; PUI COVID-19; Vicente pneumonia; ? ILD; KAYLA Interval history: pt yelling that he's in pain, mid abdomen (previously left sided/flank), can't keep anything down, discussed with pt's nurse and has been like this all day Objective - Constitutional Vitals: Temp Pulse Resp BP Pulse Ox 98.4 F 90 17 133/85 94 01/22/21 03:52 01/22/21 03:52 01/22/21 03:52 01/22/21 03:52 01/22/21 09:03 General appearance: mild distress - Respiratory Respiratory: bilateral: rhonchi - Cardiovascular Rhythm: regular Heart Sounds: Present: S1 & S2 - Gastrointestinal General gastrointestinal: Present: soft, tender, non-distended - Labs CBC & Chem 7: 01/22/21 04:14 01/22/21 04:14 Labs: Laboratory Results - last 24 hr 01/22/21 01/22/21 01/22/21 04:14 04:14 10:11 WBC 10.7 RBC 4.07 Hgb 12.9 Hct 38.3 D MCV 94 MCH 32 MCHC 34 RDW 13.4 Plt Count 174 D-Dimer 7825.56 H Sodium 137 Potassium 4.4 Chloride 98.9 Carbon Dioxide 28 Anion Gap 15 BUN 24 H Creatinine 1.1 Estimated GFR > 60 BUN/Creatinine Ratio 22 Glucose 122 H Calcium 8.5 Total Bilirubin 0.50 AST 39 ALT 71 H Alkaline Phosphatase 69 Total Protein 6.7 Albumin 3.6 L Albumin/Globulin Ratio 1.2
--- NOTE | 2021-01-22 14:20 | Progress Note ---
Assessment and Plan Cultures: Blood culture 01/18/2021 pending HIV negative Covid pending A/P: 50-year-old male past medical history PUD, asthma, nephrolithiasis admitted with left flank pain and hypoxia #Acute hypoxic respiratory failure: Secondary to bilateral pneumonia. Currently on 2L NC #Bilateral pneumonia: Negative COVID. Procalcitonin mildly elevated at 0.32 #Left flank pain: Intermittent pain, has presented to various ERs several times, without elucidation of cause. Urine without pyuria Recs: -Continue ceftriaxone to complete 5 days -Follow-up blood cultures -Currently on steroids per pulmonary Imaging personally reviewed: Renal US: No stone Abdo CT: Worsening opacities in the lung Thank you for the consult, we will continue to follow. Mckinley Mccallum MD [facility] O: [phone] F: [phone] Subjective Date of service: 01/22/21 Principal diagnosis: Ac hypoxemic resp failure; PUI COVID-19; Vicente pneumonia; ? ILD; KAYLA Interval history: Afebrile, normal white count. Objective - Exam Narrative Exam: Physical exam deferred due to PPE conservation strategy. Please refer to primary team's note. - Constitutional Vitals: Vital Signs Temp Pulse Resp BP Pulse Ox 98.4 F 90 17 133/85 94 01/22/21 03:52 01/22/21 03:52 01/22/21 03:52 01/22/21 03:52 01/22/21 09:03 Temperature -Last 24 Hours Temperature 98.4 F Temperature 98.4 F Temperature 98.9 F Temperature 98.8 F - Labs CBC & Chem 7: 01/22/21 04:14 01/22/21 04:14 Labs: Abnormal lab results 01/22/21 01/22/21 Range/Units 04:14 10:11 D-Dimer 7825.56 H (0-234) ng/mlDDU BUN 24 H (9-20) mg/dL Glucose 122 H (75-100) mg/dL ALT 71 H (7-56) units/L Albumin 3.6 L (3.9-5) g/dL
--- NOTE | 2021-01-22 14:22 | Progress Note ---
Assessment and Plan Patient resting on 2 litres O2. O2 saturation 96%. Patient sleepy. Denies chest pain ,shortness of breath or cough. Chest xray done reported Bilateral lower lung Opacities. CAT scan of chest with contrast done on 01/18/21 Reported Extensive basilar predominant groundglass opacities with interlobular septal thickening and developing airspace consolidation of the right lower lobe. Findings are somewhat nonspecific. Differential includes pulmonary alveolar proteinosis, pulmonary edema, diffuse alveolar hemorrhage, or atypical infection, to include pneumocystis and mycoplasma. Venous doppler studies of legs 01/19/21 Reported no sonographic evidence of DVT in either legs. Patient initially treated with antibiotics Ceftriaxone and Fluconazole. Patient presently on dexamethasone, S/C Heparine, Protonix and albuterol/atrov ent aerosol treatments. Infectious disease on consultation. Antibiotics as per infectious diseases. - Patient Problems (1) Acute respiratory failure with hypoxia Current Visit: Yes Status: Acute Plan to address problem: O2 2 litres via nasal canula. Albuterol/atrovent aerosol treatment. Continue I/V solumedrol Continue S/C Heparin. Continue Protonix. (2) Bilateral pneumonia Current Visit: Yes Status: Acute Plan to address problem: Patient was on ceftriaxone and Fluconazole. Antibiotics as per infectious diseases. (3) Left flank pain Current Visit: Yes Status: Acute Plan to address problem: Management as per primary care and urology. (4) Sepsis Current Visit: Yes Status: Acute Plan to address problem: Antibiotics as per infectious diseases. (5) Suspected COVID-19 virus infection Current Visit: Yes Status: Acute Plan to address problem: Ramsay virus PCR negative. (6) Acute hypoactive delirium due to another medical condition Current Visit: Yes Status: Acute Plan to address problem: Management as per primary care. Subjective Date of service: 01/22/21 Principal diagnosis: Ac hypoxemic resp failure; PUI COVID-19; Vicente pneumonia; ? ILD; KAYLA Interval history: Patient resting on 2 litres O2. O2 saturation 96%. Patient sleepy. Denies chest pain ,shortness of breath or cough. Chest xray done reported Bilateral lower lung Opacities. CAT scan of chest with contrast done on 01/18/21 Reported Extensive basilar predominant groundglass opacities with interlobular septal thickening and developing airspace consolidation of the right lower lobe. Findings are somewhat nonspecific. Differential includes pulmonary alveolar proteinosis, pulmonary edema, diffuse alveolar hemorrhage, or atypical infection, to include pneumocystis and mycoplasma. Venous doppler studies of legs 01/19/21 Reported no sonographic evidence of DVT in either legs. Patient initially treated with antibiotics Ceftriaxone and Fluconazole. Patient presently on dexamethasone, S/C Heparine, Protonix and albuterol/atrovent aerosol treatments. Infectious disease on consultation. Antibiotics as per infectious diseases. Objective Vital Signs - 12hr 01/22/21 01/22/21 01/22/21 02:51 03:52 03:53 Temperature 98.4 F Pulse Rate 90 Pulse Rate [ 93 H Anterior Bilateral Throughout] Pulse Rate [ 91 H Posterior Bilateral Throughout] Respiratory 17 Rate Respiratory 18 Rate [Anterior Bilateral Throughout] Respiratory 18 Rate [Posterior Bilateral Throughout] Blood Pressure 133/85 O2 Sat by Pulse 88 94 Oximetry 01/22/21 09:03 Temperature Pulse Rate Pulse Rate [ Anterior Bilateral Throughout] Pulse Rate [ Posterior Bilateral Throughout] Respiratory Rate Respiratory Rate [Anterior Bilateral Throughout] Respiratory Rate [Posterior Bilateral Throughout] Blood Pressure O2 Sat by Pulse 94 Oximetry Constitutional: no acute distress, other (Sleepy) Eyes: non-icteric ENT: oropharynx moist Neck: supple, no lymphadenopathy Ascultation: Bilateral: rhonchi Cardiovascular: regular rate and rhythm Gastrointestinal: normoactive bowel sounds, soft, non-tender Integumentary: normal Extremities: no cyanosis, no edema Neurologic: non-focal exam, pupils equal and round Psychiatric: depressed CBC and BMP: 01/22/21 04:14 01/22/21 04:14 ABG, PT/INR, D-dimer: PT/INR, D-dimer D-Dimer 7825.56 ng/mlDDU (0-234) H 01/22/21 10:11 Abnormal lab findings: Abnormal Labs 01/18/21 01/18/21 01/18/21 13:32 14:47 14:47 WBC 20.9 H MCV Seg Neuts % (Manual) 92.0 H Lymphocytes % (Manual) 5.0 L Seg Neutrophils # Man 19.2 H Lymphocytes # (Manual) 1.0 L D-Dimer 869.63 H Sodium Potassium Chloride Carbon Dioxide BUN Creatinine Glucose 102 H Calcium Ferritin AST ALT Alkaline Phosphatase Lactate Dehydrogenase 949 H C-Reactive Protein 23.00 H Albumin Lipase Ur Specific [place] 01/18/21 01/18/2121 14:47 15:03 18:31 WBC MCV Seg Neuts % (Manual) Lymphocytes % (Manual) Seg Neutrophils # Man Lymphocytes # (Manual) D-Dimer Sodium 135 L Potassium Chloride Carbon Dioxide 21 L BUN 25 H Creatinine 1.5 H Glucose Calcium Ferritin 502.1 H AST 304 H ALT 98 H Alkaline Phosphatase 139 H Lactate Dehydrogenase C-Reactive Protein Albumin 3.8 L Lipase 7 L Ur Specific [place] 1.050 H 01/19/21 01/19/21 01/21/21 11:50 15:22 04:27 WBC 26.3 H 11.8 H MCV 95 H Seg Neuts % (Manual) 96.0 H Lymphocytes % (Manual) 4.0 L Seg Neutrophils # Man 25.2 H Lymphocytes # (Manual) 1.1 L D-Dimer Sodium 133 L Potassium Chloride 96.5 L Carbon Dioxide BUN 27 H Creatinine Glucose 106 H Calcium 8.3 L Ferritin AST ALT Alkaline Phosphatase Lactate Dehydrogenase C-Reactive Protein Albumin Lipase Ur Specific [place] 01/21/21 01/21/21 01/21/21 04:27 10:30 10:30 WBC MCV Seg Neuts % (Manual) Lymphocytes % (Manual) Seg Neutrophils # Man Lymphocytes # (Manual) D-Dimer 9685.34 H Sodium 136 L Potassium 5.5 H Chloride Carbon Dioxide BUN Creatinine Glucose 118 H 135 H Calcium Ferritin AST ALT Alkaline Phosphatase Lactate Dehydrogenase 668 H C-Reactive Protein 6.80 H Albumin Lipase Ur Specific [place] 01/21/21 01/22/21 01/22/21 10:30 04:14 10:11 WBC MCV Seg Neuts % (Manual) Lymphocytes % (Manual) Seg Neutrophils # Man Lymphocytes # (Manual) D-Dimer 7825.56 H Sodium Potassium Chloride Carbon Dioxide BUN 24 H Creatinine Glucose 122 H Calcium Ferritin 517.7 H AST ALT 71 H Alkaline Phosphatase Lactate Dehydrogenase C-Reactive Protein Albumin 3.6 L Lipase Ur Specific Chrom[place] Chest x-ray: report reviewed, image reviewed CT scan - chest: report reviewed, image reviewed Prior PFT's, U/S of legs: report reviewed, image reviewed Additional Studies: Venous doppler studies of legs 01/19/21 Reported no sonographic evidence of DVT in either legs. CTA CHEST WITH CONTRAST 01/18/21 INDICATION / CLINICAL INFORMATION: Hypoxia. TECHNIQUE: Axial CT images were obtained through the chest after injection of IV contrast. 3 plane MIP and/or 3D reconstructions were produced. All CT scans at this location are performed using CT dose reduction for ALARA by means of automated exposure control. COMPARISON: None available. FINDINGS: PULMONARY ARTERIES: Not well evaluated due to arterial phase imaging. THORACIC AORTA: Thoracic aorta is normal in caliber. No evidence of dissection. HEART: No cardiac enlargement. No pericardial effusion. ADENOPATHY: Shotty left paratracheal and bilateral hilar lymph nodes are likely reactive. LUNGS/PLEURA: There is mild paraseptal emphysema in the apices. Extensive ground glass opacities are present throughout the lungs, preferentially involving the lung bases, with associated interlobular septal thickening. There is relative sparing of the upper lungs with preferential subpleural involvement. There are patchy airspace consolidation is noted within the right lower lobe. No pleural effusion or pneumothorax. ADDITIONAL FINDINGS: None. UPPER ABDOMEN: Findings of the upper abdomen are detailed centrally. SKELETAL STRUCTURES: No significant osseous abnormality. IMPRESSION: Extensive basilar predominant groundglass opacities with interlobular septal thickening and developing airspace consolidation of the right lower lobe. Findings are somewhat nonspecific. Differential includes pulmonary alveolar proteinosis, pulmonary edema, diffuse alveolar hemorrhage, or atypical infection, to include pneumocystis and mycoplasma. CHEST 1 VIEW 01/18/2021 1:04 PM INDICATION / CLINICAL INFORMATION: dyspnea. COMPARISON: None available. FINDINGS: SUPPORT DEVICES: None. HEART / MEDIASTINUM: No significant abnormality. LUNGS / PLEURA: Diffuse opacities are seen in bilateral lower lungs extending from the tyler No pneumothorax. ADDITIONAL FINDINGS: No significant additional findings. IMPRESSION: 1. Bilateral lower lung opacities.
[2021-01-22] MEDS: ZIPRASIDONE 20 MG CAP PO SCH ×2 (16:06→21:56)
[2021-01-22] MEDS: HYDROmorphone 1 MG/1 ML INJ IV PRN (16:14)
[2021-01-23] MEDS: IPRATROPIUM/ALBUTEROL SULFATE 3 ML AMPUL.NEB IH SCH ×4 (02:04→20:00)
--- NOTE | 2021-01-23 02:55 | Hem/Onc Consultation ---
History of Present Illness - History of Present Illness heme/onc consult reason: abn Ddimer televisit by tshumberto 50yo AA man with h/o asthma per notes, eval for pain al, over, especially L flank pain says he has had pain for several days brought by ambulance, found to have hypoxia, evidence of pneumonia a few ddimer tests were abnormal-->heme eval requested today severe pain, unable to have a conversation eval by GI, pulm, ID-->receiving IV abx and IV steroid pulse HIV Ab neg, Covid19 Ag neg EXAM: he is screaming in pain and unable/unwilling to even talk to me he is writhing and moving a lot DATA REVIEWED BELOW Chest CT: bibasilar opacities, neg for PE found to have high WBC, high LDH, high Ddimer IMPRESSION abn ddimer likely not due to clotting high WBC and LDH could be due to infection, pain, movement reaction to pain is out of proportion to his clinical data, maybe psychiatric component severe pain, r/o sickle cell disease REC: labs to include Hgb electrophoresis, CK opiate meds may be needed for pain no further coag testing subq lovenox for dvt/pe prevention Vital Signs Temp Pulse Resp BP Pulse Ox 97.0 F L 83 14 130/83 96 01/22/21 23:17 01/22/21 23:17 01/22/21 23:17 01/22/21 23:17 01/23/21 02:00 Temperature -Last 24 Hours Temperature 97.0 F Temperature 122.0 F Temperature 98.8 F Temperature 99.0 F Temperature 98.4 F Active Medications Cyanocobalamin (Cyanocobalamin (Vit B-12) 1000 Mcg Tab) 1,000 mcg PO QDAY [facility] Last Admin: 01/22/21 10:36 Dose: 1,000 mcg Documented by: Folic Acid (Folic Acid 1 Mg Tab) 1 mg PO QDAY [facility] Last Admin: 01/22/21 10:36 Dose: 1 mg Documented by: Heparin Sodium (Porcine) (Heparin 5,000 Unit/1 Ml Vial) 5,000 unit SUB-Q Q12HR [facility] Last Admin: 01/22/21 21:56 Dose: 5,000 unit Documented by: Methylprednisolone Sodium Succinate (Methylprednisolone Sod Succinate 40 Mg/1 Ml Inj) 40 mg IV Q8H [facility] Last Admin: 01/22/21 21:56 Dose: 40 mg Documented by: Laboratory Last Values WBC 10.7 K/mm3 (4.5-11.0) 01/22/21 04:14 Hgb 12.9 gm/dl (11.8-15.2) 01/22/21 04:14 Hct 38.3 % (35.5-45.6) D 01/22/21 04:14 Plt Count 174 K/mm3 (140-440) 01/22/21 04:14 Seg Neuts % (Manual) 96.0 % (40.0-70.0) H 01/19/21 11:50 D-Dimer 7825.56 ng/mlDDU (0-234) H 01/22/21 10:11 Creatinine 1.1 mg/dL (0.8-1.3) 01/22/21 04:14 Lactic Acid 1.30 mmol/L (0.7-2.0) 01/18/21 21:36 Lactate Dehydrogenase 668 units/L (91-180) H 01/21/21 10:30 C-Reactive Protein 6.80 mg/dL (0.00-1.30) H 01/21/21 10:30 Coronavirus (PCR) Negative (Negative) 01/21/21 08:02 HIV 1&2 Antibody Rapid Non react (Non React) 01/18/21 21:36 HIV P24 Antigen Non react (Non React) 01/18/21 21:36 Past History Past Medical History: GERD, other (See HPI) Past Surgical History: Other (Right ankle surgery) Social history: single, smoking Family history: hypertension Medications and Allergies Allergies Allergy/AdvReac Type Severity Reaction Status Date / Time aspirin Allergy "it makes Verified 12/07/20 11:27 my stomach upset" Home Medications Medication Instructions Recorded Confirmed Last Taken Type Acetaminophen [Tylenol Arthritis] 650 mg PO Q6HR PRN #30 tablet.er 05/25/17 01/21/21 Unknown Rx Dicyclomine [Bentyl] 10 mg PO QID PRN #20 capsule 05/25/17 01/21/21 Unknown Rx Ondansetron [Zofran Odt] 4 mg PO QID PRN #20 tab.rapdis 05/25/17 01/21/21 Unknown Rx Dicyclomine [Bentyl] 20 mg PO QID #12 tablet 12/06/17 01/21/21 Unknown Rx Esomeprazole Magnesium [NexIUM] 40 mg PO QDAY #30 capsule. 12/07/20 01/21/21 Unknown Rx Ondansetron [Zofran Odt] 4 mg PO Q8HR PRN #14 tab.[place] 12/07/20 01/21/21 Unknown Rx Active Meds: Active Medications Acetaminophen (Acetaminophen 325 Mg Tab) 650 mg PO Q4H PRN PRN Reason: Pain MILD(1-3)/Fever >100.5/[place] Albuterol (Albuterol 2.5 Mg/3 Ml Nebu) 2.5 mg IH Q4HRT PRN PRN Reason: Shortness Of Breath Last Admin: 01/20/21 15:05 Dose: 2.5 mg Documented by: Albuterol/Ipratropium (Ipratropium/Albuterol Sulfate 3 Ml Ampul.Neb) 1 ampul IH TIDRT [facility] Ascorbic Acid (Ascorbic Acid 500 Mg Tab) 500 mg PO BID [facility] Last Admin: 01/22/21 21:56 Dose: 500 mg Documented by: Chlordiazepoxide HCl (Chlordiazepoxide 25 Mg Cap) 50 mg PO Q1HR PRN PRN Reason: CIWA-Ar 8-15 Cholecalciferol (Cholecalciferol (Vit D3) 1000 Unit (25 Mcg) Tab) 1,000 unit PO QDAY [facility] Last Admin: 01/22/21 11:32 Dose: 1,000 unit Documented by: Cyanocobalamin (Cyanocobalamin (Vit B-12) 1000 Mcg Tab) 1,000 mcg PO QDAY [facility] Last Admin: 01/22/21 10:36 Dose: 1,000 mcg Documented by: Folic Acid (Folic Acid 1 Mg Tab) 1 mg PO QDAY [facility] Last Admin: 01/22/21 10:36 Dose: 1 mg Documented by: Heparin Sodium (Porcine) (Heparin 5,000 Unit/1 Ml Vial) 5,000 unit SUB-Q Q12HR [facility] Last Admin: 01/22/21 21:56 Dose: 5,000 unit Documented by: Hydromorphone HCl (Hydromorphone 1 Mg/1 Ml Inj) 0.25 mg IV Q4H PRN PRN Reason: Pain, Moderate (4-6) Last Admin: 01/22/21 16:14 Dose: 0.25 mg Documented by: Thiamine HCl 100 mg/ Sodium (Chloride) 51 mls @ 100 mls/hr IV QDAY [facility] Last Admin: 01/22/21 10:57 Dose: 100 mls/hr Documented by: Lorazepam (Lorazepam 2 Mg/Ml Vial) 2 mg IV Q4H PRN PRN Reason: CIWA-Ar 8-15 Last Admin: 01/22/21 16:15 Dose: 2 mg Documented by: Lorazepam (Lorazepam 2 Mg/Ml Vial) 2 mg IM Q4H PRN PRN Reason: Agitation Methylprednisolone Sodium Succinate (Methylprednisolone Sod Succinate 40 Mg/1 Ml Inj) 40 mg IV Q8H [facility] Last Admin: 01/22/21 21:56 Dose: 40 mg Documented by: Metoclopramide HCl (Metoclopramide 10 Mg/2 Ml Inj) 10 mg IV Q6H PRN PRN Reason: Nausea And Vomiting Nicotine (Nicotine 21 Mg/24 Hr Patch) 21 mg TD QDAY [facility] Last Admin: 01/22/21 10:35 Dose: 21 mg Documented by: Ondansetron HCl (Ondansetron 4 Mg/2 Ml Inj) 4 mg IV Q4H PRN PRN Reason: Nausea And Vomiting Last Admin: 01/21/21 16:47 Dose: 4 mg Documented by: Pantoprazole Sodium (Pantoprazole 40 Mg Tab) 40 mg PO QDAC [facility] Last Admin: 01/22/21 11:26 Dose: 40 mg Documented by: Sodium Chloride (Sodium Chloride 0.9% 10 Ml Flush Syringe) 10 ml IV BID [facility] Last Admin: 01/22/21 21:57 Dose: 10 ml Documented by: Sodium Chloride (Sodium Chloride 0.9% 10 Ml Flush Syringe) 10 ml IV PRN PRN PRN Reason: LINE FLUSH Valproic Acid (Valproic Acid 250 Mg/5 Ml Oral Liqd) 250 mg PO BID [facility] Last Admin: 01/22/21 21:58 Dose: 250 mg Documented by: Zinc Sulfate (Zinc Sulfate 220 Mg Cap) 220 mg PO BID [facility] Last Admin: 01/22/21 21:56 Dose: 220 mg Documented by: Ziprasidone (Ziprasidone Mesylate 20 Mg Vial) 10 mg IM Q4H PRN PRN Reason: Agitation Ziprasidone (Ziprasidone 20 Mg Cap) 20 mg PO BID [facility] Last Admin: 01/22/21 21:56 Dose: 20 mg Documented by: Exam - Constitutional Vitals: Last Vital Signs Temp 97.0 F L 01/22/21 23:17 Pulse 83 01/22/21 23:17 Resp 14 01/22/21 23:17 BP 130/83 01/22/21 23:17 Pulse Ox 96 01/23/21 02:00 Results - Labs lab Results: Laboratory Results - last 24 hr 01/22/21 01/22/21 01/22/21 04:14 04:14 10:11 WBC 10.7 RBC 4.07 Hgb 12.9 Hct 38.3 D MCV 94 MCH 32 MCHC 34 RDW 13.4 Plt Count 174 D-Dimer 7825.56 H Sodium 137 Potassium 4.4 Chloride 98.9 Carbon Dioxide 28 Anion Gap 15 BUN 24 H Creatinine 1.1 Estimated GFR > 60 BUN/Creatinine Ratio 22 Glucose 122 H Calcium 8.5 Total Bilirubin 0.50 AST 39 ALT 71 H Alkaline Phosphatase 69 Total Protein 6.7 Albumin 3.6 L Albumin/Globulin Ratio 1.2
[2021-01-23] MEDS: methylPREDNISolone Sod Succinate 40 MG/1 ML INJ IV SCH ×3 (05:51→20:39)
--- NOTE | 2021-01-23 08:59 | Progress Note ---
Assessment and Plan Patient sleeping on room air. O2 saturation 96%.Patient suppose to be on 2 litres O2. Not using O2 all the time. Placed back on 2 litres O2. No acute respiratory distress.Chest xray done reported Bilateral lower lung Opacities. CAT scan of chest with contrast done on 01/18/21 Reported Extensive basilar predominant groundglass opacities with interlobular septal thickening and developing airspace consolidation of the right lower lobe. Findings are somewhat nonspecific. Differential includes pulmonary alveolar proteinosis, pulmonary edema, diffuse alveolar hemorrhage, or atypical infection, to include pneumocystis and mycoplasma. Venous doppler studies of legs 01/19/21 Reported no sonographic evidence of DVT in either legs. Patient initially treated with antibiotics Ceftriaxone and Fluconazole. Patient presently on dexamethasone, S/C Heparine, Protonix and albuterol/atrovent aerosol treatments. Infectious disease on consultation. Antibiotics as per infectious diseases. - Patient Problems (1) Acute respiratory failure with hypoxia Current Visit: Yes Status: Acute Plan to address problem: O2 2 litres via nasal canula. Albuterol/atrovent aerosol treatment. Continue I/V solumedrol Continue S/C Heparin. Continue Protonix. (2) Bilateral pneumonia Current Visit: Yes Status: Acute Plan to address problem: Patient was on ceftriaxone and Fluconazole. Antibiotics as per infectious diseases. (3) Left flank pain Current Visit: Yes Status: Acute Plan to address problem: Management as per primary care and urology. (4) Sepsis Current Visit: Yes Status: Acute Plan to address problem: Antibiotics as per infectious diseases. (5) Suspected COVID-19 virus infection Current Visit: Yes Status: Acute Plan to address problem: Ramsay virus PCR negative. (6) Acute hypoactive delirium due to another medical condition Current Visit: Yes Status: Acute Plan to address problem: Management as per primary care. Subjective Date of service: 01/23/21 Principal diagnosis: Ac hypoxemic resp failure; PUI COVID-19; Vicente pneumonia; ? ILD; KAYLA Interval history: Patient sleeping on room air. O2 saturation 96%.Patient suppose to be on 2 litres O2. Not using O2 all the time. Placed back on 2 litres O2. No acute respiratory distress.Chest xray done reported Bilateral lower lung Opacities. CAT scan of chest with contrast done on 01/18/21 Reported Extensive basilar predominant groundglass opacities with interlobular septal thickening and developing airspace consolidation of the right lower lobe. Findings are somewhat nonspecific. Differential includes pulmonary alveolar proteinosis, pulmonary edema, diffuse alveolar hemorrhage, or atypical infection, to include pneumocystis and mycoplasma. Venous doppler studies of legs 01/19/21 Reported no sonographic evidence of DVT in either legs. Patient initially treated with antibiotics Ceftriaxone and Fluconazole. Patient presently on dexamethasone, S/C Heparine, Protonix and albuterol/ atrovent aerosol treatments. Infectious disease on consultation. Antibiotics as per infectious diseases. Objective Vital Signs - 12hr 01/22/21 01/22/21 01/22/21 22:00 22:19 23:17 Temperature 97.0 F L Pulse Rate 83 Pulse Rate [ 85 Posterior Bilateral Throughout] Respiratory 14 Rate Respiratory 16 Rate [Posterior Bilateral Throughout] Blood Pressure 130/83 O2 Sat by Pulse 96 95 Oximetry 01/23/21 01/23/21 01/23/21 02:00 03:25 07:52 Temperature 98.0 F 98.1 F Pulse Rate 95 H 90 Pulse Rate [ Posterior Bilateral Throughout] Respiratory 14 22 Rate Respiratory Rate [Posterior Bilateral Throughout] Blood Pressure 116/90 131/82 O2 Sat by Pulse 96 95 91 Oximetry Constitutional: no acute distress, asleep Eyes: non-icteric ENT: oropharynx moist Neck: supple, no lymphadenopathy Ascultation: Bilateral: rhonchi Cardiovascular: regular rate and rhythm Gastrointestinal: normoactive bowel sounds, soft, non-tender Integumentary: normal Extremities: no cyanosis, no edema Neurologic: non-focal exam, pupils equal and round Psychiatric: depressed CBC and BMP: 01/22/21 04:14 01/22/21 04:14 ABG, PT/INR, D-dimer: PT/INR, D-dimer D-Dimer 7825.56 ng/mlDDU (0-234) H 01/22/21 10:11 Abnormal lab findings: Abnormal Labs 01/18/21 01/18/21 01/18/21 13:32 14:47 14:47 WBC 20.9 H MCV Seg Neuts % (Manual) 92.0 H Lymphocytes % (Manual) 5.0 L Seg Neutrophils # Man 19.2 H Lymphocytes # (Manual) 1.0 L D-Dimer 869.63 H Sodium Potassium Chloride Carbon Dioxide BUN Creatinine Glucose 102 H Calcium Ferritin AST ALT Alkaline Phosphatase Lactate Dehydrogenase 949 H Total Creatine Kinase C-Reactive Protein 23.00 H Albumin Lipase Ur Specific [place] 01/18/21 01/18/21 01/18/21 14:47 15:03 18:31 WBC MCV Seg Neuts % (Manual) Lymphocytes % (Manual) Seg Neutrophils # Man Lymphocytes # (Manual) D-Dimer Sodium 135 L Potassium Chloride Carbon Dioxide 21 L BUN 25 H Creatinine 1.5 H Glucose Calcium Ferritin 502.1 H AST 304 H ALT 98 H Alkaline Phosphatase 139 H Lactate Dehydrogenase Total Creatine Kinase C-Reactive Protein Albumin 3.8 L Lipase 7 L Ur Specific [place] 1.050 H 01/19/21 01/19/21 01/21/21 11:50 15:22 04:27 WBC 26.3 H 11.8 H MCV 95 H Seg Neuts % (Manual) 96.0 H Lymphocytes % (Manual) 4.0 L Seg Neutrophils # Man 25.2 H Lymphocytes # (Manual) 1.1 L D-Dimer Sodium 133 L Potassium Chloride 96.5 L Carbon Dioxide BUN 27 H Creatinine Glucose 106 H Calcium 8.3 L Ferritin AST ALT Alkaline Phosphatase Lactate Dehydrogenase Total Creatine Kinase C-Reactive Protein Albumin Lipase Ur Specific [place] 01/21/21 01/21/21 01/21/21 04:27 10:30 10:30 WBC MCV Seg Neuts % (Manual) Lymphocytes % (Manual) Seg Neutrophils # Man Lymphocytes # (Manual) D-Dimer 9685.34 H Sodium 136 L Potassium 5.5 H Chloride Carbon Dioxide BUN Creatinine Glucose 118 H 135 H Calcium Ferritin AST ALT Alkaline Phosphatase Lactate Dehydrogenase 668 H Total Creatine Kinase C-Reactive Protein 6.80 H Albumin Lipase Ur Specific [place] 01/21/21 01/22/21 01/22/21 10:30 04:14 10:11 WBC MCV Seg Neuts % (Manual) Lymphocytes % (Manual) Seg Neutrophils # Man Lymphocytes # (Manual) D-Dimer 7825.56 H Sodium Potassium Chloride Carbon Dioxide BUN 24 H Creatinine Glucose 122 H Calcium Ferritin 517.7 H AST ALT 71 H Alkaline Phosphatase Lactate Dehydrogenase Total Creatine Kinase C-Reactive Protein Albumin 3.6 L Lipase Ur Specific [place] 01/23/21 06:14 WBC MCV Seg Neuts % (Manual) Lymphocytes % (Manual) Seg Neutrophils # Man Lymphocytes # (Manual) D-Dimer Sodium Potassium Chloride Carbon Dioxide BUN Creatinine Glucose Calcium Ferritin AST ALT Alkaline Phosphatase Lactate Dehydrogenase Total Creatine Kinase 218 H C-Reactive Protein Albumin Lipase Ur Specific [place]
--- NOTE | 2021-01-23 09:00 | Progress Note ---
Subjective - Reason for Consult Consult date: 01/23/21 Reason for consult: MHE Requesting physician: RONAN SHERMAN - Chief Complaint Chief complaint: Floor Nurse: Patient was crying loudly complaining of severe nausea and wanting to vomit, no vomiting noted, was medicated with Zofran, same was effective, patient became calm and went to sleep. Psych Progress Not in room today, went for scheduled procedure per nurse. REVIEW OF SYSTEMS n/a MENTAL STATUS EXAMINATION n/a Assessment and Plan - Patient Problems (1) Acute hypoactive delirium due to another medical condition Current Visit: Yes Status: Acute F05 Treatment Plan Concern for Psychosomatic disorder. Will swicth to Glory COELLO. MEDICATIONS: Risks, benefits and alternatives of medications discussed with the patient, questions answered and consent obtained from patient. PSYCHOTHERAPY: Supportive psychotherapy provided MEDICAL: Per primary team DELIRIUM PRECAUTIONS: Please re-orient patient frequently, keep lights on during the day, and minimize benzodiazepines and opiates as these medications could worsen patient's confusion. HR RECEPTIONIST: DISPOSITION: Do Not Recommend acute inpatient psychiatric hospitalization at this time. Case discussed with Dr. Guillen who agrees with current disposition LEGAL STATUS: Voluntary FOLLOW-UP: Will follow Thank you for the consult. Please contact with any questions and/or concerns. Mental Status Exam - Vital signs Last Vital Signs Temp 98.1 F 01/23/21 07:52 Pulse 90 01/23/21 07:52 Resp 22 01/23/21 07:52 BP 131/82 01/23/21 07:52 Pulse Ox 91 01/23/21 07:52 Assessment and Plan - Patient Problems (1) Acute hypoactive delirium due to another medical condition Current Visit: Yes Status: Acute
[2021-01-23] MEDS ORDERED: SODIUM CHLORIDE 0.9% 1000 ML 1,000 ML ONE (09:44)
[2021-01-23] MEDS ORDERED: SODIUM CHLORIDE 0.9% 1000 ML 1,000 ML IV SCH (10:00)
--- NOTE | 2021-01-23 10:16 | Progress Note ---
Assessment and Plan Assessment and plan: --Acute gastritis/-odynophagia; GI evaluation noted and appreciated Patient had endoscopy today Follow GI recommendations -- Sepsis due to bilateral pneumonia Current Visit: Yes Status: Acute . Plan to address problem: Due to bilateral pneumonia Continue empiric antibiotics Follow cultures -- Acute respiratory failure with hypoxia Current Visit: Yes Status: Acute Plan to address problem: Supplemental oxygen, pulse oximetry, nebulizer therapy, chest x-ray, CT scan chest, pulmonary toilet, if patient is unable to maintain pulse oximetry greater than 80% on submental oxygen will transition patient to high flow submental oxygen. -- Bilateral pneumonia Current Visit: Yes Status: Acute Plan to address problem: Pneumonia protocol: Oxygen titrate O2 sats to more than 90% IV antibiotics, total 5 days Rocephin recommended by ID Patient already received 3 days of Rocephin,2 more days of Rocephin today and tomorrow, Home O2 evaluation at discharge --Elevated liver enzymes Secondary to alcoholic liver disease Current Visit: Yes Status: Acute Plan to address problem: Closely monitor transaminases GI following -- EtOH use disorder with possible underlying withdrawal Current Visit: Yes Status: Acute Plan to address problem: Closely monitor for alcohol withdrawal symptoms CIWA protocol --Hypercoagulable state Current Visit: Yes Status: Acute . Plan to address problem: Closely monitor -- Hyperkalemia Current Visit: Yes Status: Acute. Plan to address problem: Present on admission , resolved -- DVT prophylaxis Current Visit: Yes Status: Acute Plan to address problem: SCD to bilateral lower extremities while in bed, prophylactic anticoagula. We will closely monitor patient and adjust the management as needed Manager Pediatric recommendations noted and appreciated Plan of care reviewed with the patient and his nurse Possible discharge in 1 to 2 days if stable History Interval history: I have seen and examined the patient at the bedside this morning Patient's chart and medications reviewed Patient underwent EGD Findings reviewed in the chart Patient feels better No new complaints Hospitalist Physical - Constitutional Vitals: Temp Pulse Resp BP Pulse Ox 98.1 F 86 20 131/82 97 01/23/21 07:52 01/23/21 08:55 01/23/21 08:55 01/23/21 07:52 01/23/21 09:03 General appearance: Present: mild distress, well-nourished, cachectic - EENT Eyes: Present: PERRL, EOM intact - Neck Neck: Present: supple, normal ROM - Respiratory Respiratory effort: normal Respiratory: bilateral: diminished, negative: rales, rhonchi, wheezing - Cardiovascular Rhythm: regular Heart Sounds: Present: S1 & S2 - Extremities Extremities: no ischemia, No edema - Abdominal General gastrointestinal: soft, non-tender, non-distended, normal bowel sounds - Integumentary Integumentary: Present: clear, warm - Psychiatric Psychiatric: appropriate mood/affect, cooperative - Neurologic Neurologic: CNII-XII intact, focal deficits Results - Labs CBC & Chem 7: 01/22/21 04:14 01/22/21 04:14 Labs: Laboratory Last Values WBC 10.7 K/mm3 (4.5-11.0) 01/22/21 04:14 RBC 4.07 M/mm3 (3.65-5.03) 01/22/21 04:14 Hgb 12.9 gm/dl (11.8-15.2) 01/22/21 04:14 Hct 38.3 % (35.5-45.6) D 01/22/21 04:14 MCV 94 fl (84-94) 01/22/21 04:14 MCH 32 pg (28-32) 01/22/21 04:14 MCHC 34 % (32-34) 01/22/21 04:14 RDW 13.4 % (13.2-15.2) 01/22/21 04:14 Plt Count 174 K/mm3 (140-440) 01/22/21 04:14 Add Manual Diff Complete 01/19/21 11:50 Total Counted 100 01/19/21 11:50 Seg Neutrophils % Test Designer 01/19/21 11:50 Seg Neuts % (Manual) 96.0 % (40.0-70.0) H 01/19/21 11:50 Lymphocytes % (Manual) 4.0 % (13.4-35.0) L 01/19/21 11:50 Monocytes % (Manual) 3.0 % (0.0-7.3) 01/18/21 13:32 Nucleated RBC % Not Reportable 01/19/21 11:50 Seg Neutrophils # Man 25.2 K/mm3 (1.8-7.7) H 01/19/21 11:50 Band Neutrophils # 0.0 K/mm3 01/19/21 11:50 Lymphocytes # (Manual) 1.1 K/mm3 (1.2-5.4) L 01/19/21 11:50 Abs React Lymphs (Man) 0.0 K/mm3 01/19/21 11:50 Monocytes # (Manual) 0.0 K/mm3 (0.0-0.8) 01/19/21 11:50 Eosinophils # (Manual) 0.0 K/mm3 (0.0-0.4) 01/19/21 11:50 Basophils # (Manual) 0.0 K/mm3 (0.0-0.1) 01/19/21 11:50 Metamyelocytes # 0.0 K/mm3 01/19/21 11:50 Myelocytes # 0.0 K/mm3 01/19/21 11:50 Promyelocytes # 0.0 K/mm3 01/19/21 11:50 Blast Cells # 0.0 K/mm3 01/19/21 11:50 WBC Morphology Not Reportable 01/19/21 11:50 Hypersegmented Neuts Not Reportable 01/19/21 11:50 Hyposegmented Neuts Not Reportable 01/19/21 11:50 Hypogranular Neuts Not Reportable 01/19/21 11:50 Smudge Cells Not Reportable 01/19/21 11:50 Toxic Granulation Not Reportable 01/19/21 11:50 Toxic Vacuolation Not Reportable 01/19/21 11:50 Dohle Bodies Not Reportable 01/19/21 11:50 Pelger-Huet Anomaly Not Reportable 01/19/21 11:50 Ricco Rods Not Reportable 01/19/21 11:50 Platelet Estimate Consistent w auto 01/19/21 11:50 Clumped Platelets Not Reportable 01/19/21 11:50 Plt Clumps, EDTA Not Reportable 01/19/21 11:50 Large Platelets Not Reportable 01/19/21 11:50 Giant Platelets Not Reportable 01/19/21 11:50 Platelet Satelliting Not Reportable 01/19/21 11:50 Plt Morphology Comment Not Reportable 01/19/21 11:50 RBC Morphology Normal 01/19/21 11:50 Dimorphic RBCs Not Reportable 01/19/21 11:50 Polychromasia Not Reportable 01/19/21 11:50 Hypochromasia Not Reportable 01/19/21 11:50 Poikilocytosis Not Reportable 01/19/21 11:50 Anisocytosis Not Reportable 01/19/21 11:50 Microcytosis Not Reportable 01/19/21 11:50 Macrocytosis Not Reportable 01/19/21 11:50 Spherocytes Not Reportable 01/19/21 11:50 Pappenheimer Bodies Not Reportable 01/19/21 11:50 Sickle Cells Not Reportable 01/19/21 11:50 Target Cells Not Reportable 01/19/21 11:50 Tear Drop Cells Not Reportable 01/19/21 11:50 Ovalocytes Not Reportable 01/19/21 11:50 Helmet Cells Not Reportable 01/19/21 11:50 Baez-Edom Bodies Not Reportable 01/19/21 11:50 [place] Rings Not Reportable 01/19/21 11:50 Rowena Cells Not Reportable 01/19/21 11:50 Bite Cells Not Reportable 01/19/21 11:50 Crenated Cell Not Reportable 01/19/21 11:50 Elliptocytes Not Reportable 01/19/21 11:50 Acanthocytes (Spur) Not Reportable 01/19/21 11:50 Rouleaux Not Reportable 01/19/21 11:50 Hemoglobin C Crystals Not Reportable 01/19/21 11:50 Schistocytes Not Reportable 01/19/21 11:50 Malaria parasites Not Reportable 01/19/21 11:50 Danny Bodies Not Reportable 01/19/21 11:50 Hem Pathologist Commnt No 01/19/21 11:50 D-Dimer 7825.56 ng/mlDDU (0-234) H 01/22/21 10:11 Sodium 137 mmol/L (137-145) 01/22/21 04:14 Potassium 4.4 mmol/L (3.6-5.0) 01/22/21 04:14 Chloride 98.9 mmol/L (98-107) 01/22/21 04:14 Carbon Dioxide 28 mmol/L (22-30) 01/22/21 04:14 Anion Gap 15 mmol/L 01/22/21 04:14 BUN 24 mg/dL (9-20) H 01/22/21 04:14 Creatinine 1.1 mg/dL (0.8-1.3) 01/22/21 04:14 Estimated GFR > 60 ml/min 01/22/21 04:14 BUN/Creatinine Ratio 22 % 01/22/21 04:14 Glucose 122 mg/dL (75-100) H 01/22/21 04:14 Lactic Acid 1.30 mmol/L (0.7-2.0) 01/18/21 21:36 Calcium 8.5 mg/dL (8.4-10.2) 01/22/21 04:14 Ferritin 517.7 ng/mL (30.0-300.0) H 01/21/21 10:30 Total Bilirubin 0.50 mg/dL (0.1-1.2) 01/22/21 04:14 AST 39 units/L (5-40) 01/22/21 04:14 ALT 71 units/L (7-56) H 01/22/21 04:14 Alkaline Phosphatase 69 units/L (35-129) 01/22/21 04:14 Lactate Dehydrogenase 668 units/L (91-180) H 01/21/21 10:30 Total Creatine Kinase 218 units/L (55-170) H 01/23/21 06:14 C-Reactive Protein 6.80 mg/dL (0.00-1.30) H 01/21/21 10:30 Total Protein 6.7 g/dL (6.3-8.2) 01/22/21 04:14 Albumin 3.6 g/dL (3.9-5) L 01/22/21 04:14 Albumin/Globulin Ratio 1.2 % 01/22/21 04:14 Lipase 7 units/L (13-60) L 01/18/21 15:03 Procalcitonin 0.32 ng/mL (<0.15) 01/21/21 10:30 Urine Color Yellow (Yellow) 01/18/21 18:31 Urine Turbidity Clear (Clear) 01/18/21 18: Urine pH 5.0 (5.0-7.0) 01/18/21 18: Ur Specific [place] 1.050 (1.003-1.030) H 01/18/21 18:31 Urine Protein 30 mg/dl mg/dL (Negative) 01/18/21 18: Urine Glucose (UA) Neg mg/dL (Negative) 01/18/21 18:31 Urine Ketones 20 mg/dL (Negative) 01/18/21 18:31 Urine Blood Sm (Negative) 01/18/21 18:31 Urine Nitrite Neg (Negative) 01/18/21 18:31 Urine Bilirubin Neg (Negative) 01/18/21 18:31 Urine Urobilinogen < 2.0 mg/dL (<2.0) 01/18/21 18:31 Ur Leukocyte Esterase Neg (Negative) 01/18/21 18:31 Urine WBC (Auto) 1.0 /HPF (0.0-6.0) 01/18/21 18: Urine RBC (Auto) 3.0 /HPF (0.0-6.0) 01/18/21 18: U Epithel Cells (Auto) 1.0 /HPF (0-13.0) 01/18/21 18: Urine Mucus 1+ /HPF 01/18/21 18:31 Coronavirus (PCR) Negative (Negative) 01/21/21 08:02 HIV 1&2 Antibody Rapid Non react (Non React) 01/18/21 21:36 HIV P24 Antigen Non react (Non React) 01/18/21 21:36 Microbiology: Microbiology 01/18/21 14:47 Peripheral/Venous Blood Culture - Preliminary NO GROWTH AFTER 4 DAYS 01/18/21 14:52 Peripheral/Venous Blood Culture - Preliminary NO GROWTH AFTER 4 DAYS Gomes/IV: Voiding Method Urinal Active Medications - Current Medications Current Medications: Generic Name Dose Route Start Last Admin Trade Name Freq PRN Reason Stop Dose Admin Acetaminophen 650 mg 01/18/21 17:19 Acetaminophen 325 Mg Tab PO Q4H PRN Pain MILD(1-3)/Fever >100.5/B[place] Albuterol 2.5 mg 01/18/21 17:19 01/20/21 15:05 Albuterol 2.5 Mg/3 Ml Nebu IH 2.5 mg Q4HRT PRN Administration Shortness Of Breath Albuterol/Ipratropium 1 ampul 01/23/21 08:00 01/23/21 08:55 Ipratropium/Albuterol Sulfate 3 Ml Ampul.Neb IH 1 ampul TIDRT LEE Administration Ascorbic Acid 500 mg 01/18/21 22:00 01/22/21 21:56 Ascorbic Acid 500 Mg Tab PO 500 mg BID LEE Administration Chlordiazepoxide HCl 50 mg 01/19/21 10:07 Chlordiazepoxide 25 Mg Cap PO Q1HR PRN [facility] 8-15 Cholecalciferol 1,000 unit 01/19/21 10:00 01/22/21 11:32 Cholecalciferol (Vit D3) 1000 Unit (25 Mcg) Tab PO 1,000 unit QDAY [facility] Administration Cyanocobalamin 1,000 mcg 01/19/21 11:00 01/22/21 10:36 Cyanocobalamin (Vit B-12) 1000 Mcg Tab PO 1,000 mcg QDAY [facility] Administration Enoxaparin Sodium 40 mg 01/23/21 10:00 Enoxaparin 40 Mg/0.4 Ml Inj SUB-Q QDAY [facility] Protocol Folic Acid 1 mg 01/19/21 11:00 01/22/21 10:36 Folic Acid 1 Mg Tab PO 1 mg QDAY [facility] Administration Hydromorphone HCl 0.25 mg 01/18/21 17:24 01/22/21 16:14 Hydromorphone 1 Mg/1 Ml Inj IV 0.25 mg Q4H PRN Administration Pain, Moderate (4-6) Thiamine HCl 100 mg/ Sodium 51 mls @ 100 mls/hr 01/22/21 10:00 01/22/21 10:57 Chloride IV 100 mls/hr QDAY [facility] Administration Sodium Chloride 1,000 mls @ 50 mls/hr 01/23/21 10:00 Nacl 0.9% 1000 Ml IV DIRECT LEE Lorazepam 2 mg 01/19/21 10:07 01/22/21 16:15 Lorazepam 2 Mg/Ml Vial IV 2 mg Q4H PRN Administration [facility] 8-15 Lorazepam 2 mg 01/22/21 10:00 Lorazepam 2 Mg/Ml Vial IM Q4H PRN Agitation Methylprednisolone Sodium Succinate 40 mg 01/18/21 22:00 01/23/21 05:51 Methylprednisolone Sod Succinate 40 Mg/1 Ml Inj IV 40 mg Q8H LEE Administration Metoclopramide HCl 10 mg 01/19/21 14:50 Metoclopramide 10 Mg/2 Ml Inj IV Q6H PRN Nausea And Vomiting Nicotine 21 mg 01/21/21 17:00 01/22/21 10:35 Nicotine 21 Mg/24 Hr Patch TD 21 mg QDAY LEE Administration Ondansetron HCl 4 mg 01/19/21 14:49 01/21/21 16:47 Ondansetron 4 Mg/2 Ml Inj IV 4 mg Q4H PRN Administration Nausea And Vomiting Pantoprazole Sodium 40 mg 01/21/21 07:30 01/22/21 11:26 Pantoprazole 40 Mg Tab PO 40 mg QDAC LEE Administration Sodium Chloride 10 ml 01/18/21 22:00 01/22/21 21:57 Sodium Chloride 0.9% 10 Ml Flush Syringe IV 10 ml BID LEE Administration Sodium Chloride 10 ml 01/18/21 17:19 Sodium Chloride 0.9% 10 Ml Flush Syringe IV PRN PRN LINE FLUSH Valproic Acid 250 mg 01/20/21 22:00 01/22/21 21:58 Valproic Acid 250 Mg/5 Ml Oral Liqd PO 250 mg BID LEE Administration Zinc Sulfate 220 mg 01/18/21 22:00 01/22/21 21:56 Zinc Sulfate 220 Mg Cap PO 220 mg BID LEE Administration Ziprasidone 10 mg 01/22/21 10:00 Ziprasidone Mesylate 20 Mg Vial IM Q4H PRN Agitation Ziprasidone 20 mg 01/22/21 10:00 01/22/21 21:56 Ziprasidone 20 Mg Cap PO 20 mg BID LEE Administration Nutrition/Malnutrition Assess - Dietary Evaluation Nutrition/Malnutrition Findings: Nutrition Notes Start: 01/19/21 12:04 Freq: Status: Active Protocol: Document 01/22/21 09:07 CW (Rec: 01/22/21 09:16 CW [id number]) Nutrition Notes 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 Pt continue to be in abd pain. Pt now NPO for procedure to assess abdominal pain. pt reported good appetite [employer]. ONS builidng up in room. Will d/c at this time and assess reinitiaiting PRN. P mentions intolerance with concentrated fruit just. Stated acid reflux when drinking them. Percent of energy/protein needs met: 0%/0% Burn Absent Trauma Absent GI Symptoms Nausea,Vomiting,Other Food Allergy No Usual Diet at Home Avoid Concentrated fruit juices Current % PO Negligible Minimum of two criteria No physical signs of malnutrition #1 Nutrition Diagnosis Inadequate energy intake Etiology abd pain As Evidenced by Signs and Symptoms r/o decreased appetite d/t extreme stomach pain Is patient on ventilator? No Is Patient Ambulatory and/or Out of Bed Yes REE-([facility]-ambulatory/OOB) [ 2191.696 [id number]] Calculation Used for Recommendations [facility] Additional Notes protein needs:64 - 95g (0.8 - 1.2 g/kgBW for KAYLA) Fluid needs: 1 ml/kcal or per MD order Nutrition Intervention Change Diet Order: Advance diet to Cardiac Diet when medically feasible Add Supplement/Snack (indicate name/kcal d/c Ensure Enlive daily /protein ) Goal #1 Diet advancement Anticipated Discharge Needs: Cardiac Diet Follow-Up By: 01/24/21 Additional Comments F/U for PO intakes and need for ONS
--- NOTE | 2021-01-23 10:19 | Anesthesia Consultation ---
Anesthesia Consult and Med Hx Date of service: 01/23/21 - Airway Anesthetic Teeth Evaluation: Good ROM Head & Neck: Adequate Mental/Hyoid Distance: Adequate Mallampati Class: Class II Intubation Access Assessment: Good - Pulmonary Exam CTA: No - Pre-Operative Health Status ASA Pre-Surgery Classification: ASA3 Proposed Anesthetic Plan: MAC - Pulmonary Hx Asthma: Yes Hx Respiratory Symptoms: Yes SOB: Yes Hx Pneumonia: Yes - Cardiovascular System Hx Pacemaker: No Hx Internal Defibrillator: No - Gastrointestinal Hx Ulcer: Yes Hx Gastroesophageal Reflux Disease: Yes
--- NOTE | 2021-01-23 10:20 | Anesthesia Day of Surgery ---
Anesthesia Day of Surgery - Day of Surgery Patient Examined: Yes Patient H&P Reviewed: Yes Patient is NPO: Yes
[2021-01-23] MEDS ORDERED: propofoL 200 MG/20 ML VIAL IV ONE (10:23)
--- NOTE | 2021-01-23 10:39 | Operative Report ---
Operative Report Operative Report: Esophagogastroduodenoscopy Procedure Note Date of procedure: 01/23/2021 Endoscopist: Devin Samson Pre-op diagnosis/indication: Abdominal pain Post-op diagnosis: Esophagitis MEDICATIONS: MAC COMPLICATIONS: No immediate complications ESTIMATED BLOOD LOSS: None DESCRIPTION OF PROCEDURE: After consent was obtained, the patient was placed in the left lateral decubitis position. The olympus endoscope was inserted into the patient's mouth under direct vision and advanced to the 2nd portion of the duodenum without difficulty. The patient tolerated the procedure well. The views of the mucosa were fair. The patient's vital signs were monitored continuously throughout the procedure. FINDINGS: There was moderately severe erosive esophagitis in the lower third of the esophagus. There was a hiatal hernia. The stomach and visualized portion of the duodenum appeared normal IMPRESSION: 1. Moderately severe esophagitis. However, unlikely source of patient's pain/symptoms on admission. No obvious explanation of patient's pain seen during procedure RECOMMENDATIONS: -PPI BID dosing and carafate TID -diet as tolerated -repeat EGD in 6-8 weeks to assess healing and rule out underlying ashley's will sign off, please call as needed
--- NOTE | 2021-01-23 10:40 | Post Anesthesia Evaluation ---
- Post Anesthesia Evaluation Patient Participated: Yes Airway Patent: Yes Stable Respiratory Function: Yes Nausea/Vomiting: No Temp > 96.8F: Yes Pain Manageable: Yes Adequeate Hydration: Yes Anesthesia Complications: No Block Receding Appropriately: Not Applicable Patient on Ventilator: No
[2021-01-23] MEDS: ZIPRASIDONE MESYLATE 20 MG VIAL IM PRN (12:41)
[2021-01-23] MEDS: VALPROIC ACID 250 MG/5 ML ORAL LIQD PO SCH ×2 (12:53→23:31)
[2021-01-23] MEDS: ENOXAPARIN 40 MG/0.4 ML INJ SUB-Q SCH (12:54)
[2021-01-23] MEDS: NICOTINE 21 MG/24 HR PATCH TD SCH (13:02)
[2021-01-23] MEDS: ASCORBIC ACID 500 MG TAB PO SCH ×2 (13:02→23:31)
[2021-01-23] MEDS: CHOLECALCIFEROL (VIT D3) 1000 UNIT (25 mcg) TAB PO SCH (13:02)
[2021-01-23] MEDS: CYANOCOBALAMIN (VIT B-12) 1000 MCG TAB PO SCH (13:02)
[2021-01-23] MEDS: THIAMINE 100 MG in SODIUM CHLORIDE 0.9% 50 ML IV SCH (13:05)
[2021-01-23] MEDS: FOLIC ACID 1 MG TAB PO SCH (13:05)
[2021-01-23] MEDS: ZINC SULFATE 220 MG CAP PO SCH ×2 (13:06→23:31)
--- NOTE | 2021-01-23 13:15 | Progress Note ---
Assessment and Plan Cultures: Blood culture 01/18/2021 pending HIV negative Covid pending A/P: 50-year-old male past medical history PUD, asthma, nephrolithiasis admitted with left flank pain and hypoxia #Acute hypoxic respiratory failure: Secondary to bilateral pneumonia. Currently on 2L NC #Bilateral pneumonia: Negative COVID. Procalcitonin mildly elevated at 0.32 #Left flank pain: Intermittent pain, has presented to various ERs several times, without elucidation of cause. Urine without pyuria Recs: -Completed empiric ceftriaxone. -Follow-up blood cultures -Currently on steroids per pulmonary Thank you for the consult, we will sign off with resolved fevers and white count. Please call with questions. Mckinley Mccallum MD [facility] O: [phone] F: [phone] Subjective Date of service: 01/23/21 Principal diagnosis: Ac hypoxemic resp failure; PUI COVID-19; Vicente pneumonia; ? ILD; KAYLA Interval history: Afebrile, normal white count now. Covid negative. Had EGD today which showed esophagitis. Objective - Exam Narrative Exam: Physical Exam: Constitutional: Alert, cooperative. No acute distress Head, Ears, Nose: Normocephalic, atraumatic. External ears, nose normal Eyes: Conjunctivae/corneas clear. No icterus. No ptosis. Neck: Supple, no meningeal signs Oral: dentition fair, no thrush Cardiovascular: S1, S2 normal. Respiratory: Good air entry, clear to auscultation bilaterally GI: Soft, non-tender; bowel sounds normal. No peritoneal signs. Musculoskeletal: No pedal edema, no cyanosis. Skin: No rash or abscess Hem/Lymphatic: No palpable cervical or supraclavicular nodes. No lymphangitis Psych: Mood ok. Affect normal Neurological: Awake, alert, oriented. No gross abnormality - Constitutional Vitals: Vital Signs Temp Pulse Resp BP Pulse Ox 97.1 F L 90 15 130/79 98 01/23/21 10:35 01/23/21 11:00 01/23/21 11:00 01/23/21 11:00 01/23/21 11:00 Temperature -Last 24 Hours Temperature 97.1 F Temperature 97.9 F Temperature 97.9 F Temperature 98.1 F Temperature 98.0 F Temperature 97.0 F Temperature 122.0 F Temperature 98.8 F - Labs CBC & Chem 7: 01/22/21 04:14 01/22/21 04:14 Labs: Abnormal lab results 01/23/21 Range/Units 06:14 Total Creatine Kinase 218 H (55-170) units/L
[2021-01-23] MEDS: ZIPRASIDONE 20 MG CAP PO SCH ×2 (14:48→23:31)
[2021-01-23] MEDS: SUCRALFATE 1 GM/10 ML ORAL LIQD PO SCH (15:00)
[2021-01-23] MEDS: LORazepam 2 MG/ML VIAL IV PRN (17:39)
[2021-01-23] MEDS: ONDANSETRON 4 MG/2 ML INJ IV PRN (18:57)
[2021-01-23] MEDS ORDERED: cefTRIAXone/NS 2 GM/100 ML 2 GM/100 ML BAG IV SCH (20:00)
[2021-01-23] MEDS: HYDROmorphone 1 MG/1 ML INJ IV PRN (23:37)
[2021-01-24] MEDS: LORazepam 2 MG/ML VIAL IV PRN (00:18)
[2021-01-24] MEDS ORDERED: WATER FOR INJ Sterile (PF) 10 ML ONE (01:28)
[2021-01-24] MEDS: ONDANSETRON 4 MG/2 ML INJ IV PRN ×3 (01:32→18:28)
[2021-01-24] MEDS: ZIPRASIDONE MESYLATE 20 MG VIAL IM PRN (01:32)
[2021-01-24] MEDS: methylPREDNISolone Sod Succinate 40 MG/1 ML INJ IV SCH ×2 (04:56→18:20)
[2021-01-24] MEDS: SUCRALFATE 1 GM/10 ML ORAL LIQD PO SCH ×4 (07:30→18:28)
--- NOTE | 2021-01-24 07:48 | Progress Note ---
Subjective - Reason for Consult Consult date: 01/24/21 Reason for consult: MHE Requesting physician: RONAN SHERMAN - Chief Complaint Chief complaint: Floor Nurse: Patient was crying loudly complaining of severe nausea and wanting to vomit, no vomiting noted, was medicated with Zofran, same was effective, patient became calm and went to sleep. Psych Progress Patient in room, grimacing and complaining of stomach pain. Patient reports he is in the hospital fr treatment, states he is still suffering from stomach aches and denies any other complaints at this time. REVIEW OF SYSTEMS Constitutional: Negative for weight loss ENT: Negative for stridor Respiratory: Negative for cough or hemoptysis All other systems reviewed and are negative MENTAL STATUS EXAMINATION General Appearance and Behavior: Age appropriate, good hygiene, wearing appropriate clothes, good eye contact, cooperative polite with questioning. Cooperation: Participating/engaged Psychomotor Behavior: unremarkable and within normal limits Mood: not good Affect and affective range: congruent with mood Thought Process: Fluent/Logical, Thought Content: Within reality, Speech: low volume, slow rate and rhythm, Intellectual Functioning: Average Suicidal Ideation: Denies SI Homicidal Ideation: Denies HI Impulse Control: Unimpaired Insight and Judgment: Normal insight and judgment, Memory: slight imparement Attention: Normal, Orientation: Alert, oriented but intermittent confusion Diagnoses: Assessment and Plan - Patient Problems (1) Acute hypoactive delirium due to another medical condition Current Visit: Yes Status: Acute F05 Treatment Plan Concern for Psychosomatic disorder. Will swicth to [place] BID. MEDICATIONS: Risks, benefits and alternatives of medications discussed with the patient, questions answered and consent obtained from patient. PSYCHOTHERAPY: Supportive psychotherapy provided MEDICAL: Per primary team DELIRIUM PRECAUTIONS: Please re-orient patient frequently, keep lights on during the day, and minimize benzodiazepines and opiates as these medications could worsen patient's confusion. 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 Case discussed with Dr. Guillen who agrees with current disposition LEGAL STATUS: Voluntary FOLLOW-UP: Will follow Thank you for the consult. Please contact with any questions and/or concerns. Mental Status Exam - Vital signs Last Vital Signs Temp 98.0 F 01/24/21 04:39 Pulse 92 H 01/24/21 04:39 Resp 18 01/24/21 04:39 BP 114/82 01/24/21 04:39 Pulse Ox 94 01/24/21 04:39 Assessment and Plan - Patient Problems (1) Acute hypoactive delirium due to another medical condition Current Visit: Yes Status: Acute
[2021-01-24] MEDS: HYDROmorphone 1 MG/1 ML INJ IV PRN ×2 (07:51→12:20)
[2021-01-24] MEDS: IPRATROPIUM/ALBUTEROL SULFATE 3 ML AMPUL.NEB IH SCH ×3 (07:58→21:53)
[2021-01-24] MEDS: THIAMINE 100 MG in SODIUM CHLORIDE 0.9% 50 ML IV SCH (10:40)
[2021-01-24] MEDS: CYANOCOBALAMIN (VIT B-12) 1000 MCG TAB PO SCH (10:41)
[2021-01-24] MEDS: ENOXAPARIN 40 MG/0.4 ML INJ SUB-Q SCH (10:41)
[2021-01-24] MEDS: CHOLECALCIFEROL (VIT D3) 1000 UNIT (25 mcg) TAB PO SCH (10:41)
[2021-01-24] MEDS: FOLIC ACID 1 MG TAB PO SCH (10:41)
[2021-01-24] MEDS: ASCORBIC ACID 500 MG TAB PO SCH ×3 (10:41→23:13)
[2021-01-24] MEDS: ZINC SULFATE 220 MG CAP PO SCH ×3 (10:41→23:13)
[2021-01-24] MEDS: VALPROIC ACID 250 MG/5 ML ORAL LIQD PO SCH ×2 (10:41→23:05)
[2021-01-24] MEDS: ZIPRASIDONE 20 MG CAP PO SCH ×2 (10:41→23:05)
[2021-01-24] MEDS: NICOTINE 21 MG/24 HR PATCH TD SCH (10:41)
--- NOTE | 2021-01-24 14:17 | Progress Note ---
Assessment and Plan Patient Awake. On room air. O2 saturation 93%.Patient suppose to be on 2 litres O2. Not using O2 all the time. Recommend to keep O2 all the time. No acute respiratory distress.Chest xray done reported Bilateral lower lung Opacities. CAT scan of chest with contrast done on 01/18/21 Reported Extensive basilar predominant groundglass opacities with interlobular septal thickening and developing airspace consolidation of the right lower lobe. Findings are somewhat nonspecific. Differential includes pulmonary alveolar proteinosis, pulmonary edema, diffuse alveolar hemorrhage, or atypical infection, to include pneumocystis and mycoplasma. Venous doppler studies of legs 01/19/21 Reported no sonographic evidence of DVT in either legs. Patient afebrile. No leukocytosis. Patient initially treated with antibiotics Ceftriaxone and Fluconazole. Patient presently on dexamethasone, S/C Heparine, Protonix and albuterol/atrovent aerosol treatments. Infectious disease on consultation. Antibiotics as per infectious diseases. - Patient Problems (1) Acute respiratory failure with hypoxia Current Visit: Yes Status: Acute Plan to address problem: O2 2 litres via nasal canula. Albuterol/atrovent aerosol treatment. Continue I/V solumedrol Continue S/C Heparin. Continue Protonix. (2) Bilateral pneumonia Current Visit: Yes Status: Acute Plan to address problem: Patient was on ceftriaxone and Fluconazole. Antibiotics as per infectious diseases. Patient afebrile. No leukocytosis. (3) Left flank pain Current Visit: Yes Status: Acute Plan to address problem: Management as per primary care and urology. (4) Sepsis Current Visit: Yes Status: Acute Plan to address problem: Antibiotics as per infectious diseases. (5) Suspected COVID-19 virus infection Current Visit: Yes Status: Acute Plan to address problem: Ramsay virus PCR negative. (6) Acute hypoactive delirium due to another medical condition Current Visit: Yes Status: Acute Plan to address problem: Management as per primary care. Subjective Date of service: 01/24/21 Principal diagnosis: Ac hypoxemic resp failure; PUI COVID-19; Vicente pneumonia; ? ILD; KAYLA Interval history: Patient Awake. On room air. O2 saturation 93%.Patient suppose to be on 2 litres O2. Not using O2 all the time. Recommend to keep O2 all the time. No acute respiratory distress.Chest xray done reported Bilateral lower lung Opacities. CAT scan of chest with contrast done on 01/18/21 Reported Extensive basilar predominant groundglass opacities with interlobular septal thickening and developing airspace consolidation of the right lower lobe. Findings are somewhat nonspecific. Differential includes pulmonary alveolar proteinosis, pulmonary edema, diffuse alveolar hemorrhage, or atypical infection, to include pneumocystis and mycoplasma. Venous doppler studies of legs 01/19/21 Reported no sonographic evidence of DVT in either legs. Patient afebrile. No leukocytosis. Patient initially treated with antibiotics Ceftriaxone and Fluconazole. Patient presently on dexamethasone, S/C Heparine, Protonix and albuterol/atrovent aerosol treatments. Infectious disease on consultation. Antibiotics as per infectious diseases. Objective Vital Signs - 12hr 01/24/21 01/24/21 01/24/21 04:39 07:46 07:58 Temperature 98.0 F 97.7 F Pulse Rate 92 H 83 Pulse Rate [ 94 H Anterior Bilateral Throughout] Pulse Rate [ Posterior Bilateral Throughout] Respiratory 18 20 Rate Respiratory 18 Rate [Anterior Bilateral Throughout] Respiratory Rate [Posterior Bilateral Throughout] Blood Pressure 114/82 150/95 O2 Sat by Pulse 94 92 Oximetry 01/24/21 01/24/21 12:05 13:03 Temperature 98.2 F Pulse Rate 78 Pulse Rate [ 96 H Anterior Bilateral Throughout] Pulse Rate [ 98 H Posterior Bilateral Throughout] Respiratory 20 Rate Respiratory 18 Rate [Anterior Bilateral Throughout] Respiratory 18 Rate [Posterior Bilateral Throughout] Blood Pressure 126/89 O2 Sat by Pulse 99 Oximetry Constitutional: no acute distress, alert Eyes: non-icteric ENT: oropharynx moist Neck: supple, no lymphadenopathy Ascultation: Bilateral: rhonchi Cardiovascular: regular rate and rhythm Gastrointestinal: normoactive bowel sounds, soft, non-tender Integumentary: normal Extremities: no cyanosis, no edema Neurologic: non-focal exam, pupils equal and round Psychiatric: depressed CBC and BMP: 01/22/21 04:14 01/22/21 04:14 ABG, PT/INR, D-dimer: PT/INR, D-dimer D-Dimer 7825.56 ng/mlDDU (0-234) H 01/22/21 10:11 Abnormal lab findings: Abnormal Labs 01/18/21 01/18/21 01/18/21 13:32 14:47 14:47 WBC 20.9 H MCV Seg Neuts % (Manual) 92.0 H Lymphocytes % (Manual) 5.0 L Seg Neutrophils # Man 19.2 H Lymphocytes # (Manual) 1.0 L D-Dimer 869.63 H Sodium Potassium Chloride Carbon Dioxide BUN Creatinine Glucose 102 H Calcium Ferritin AST ALT Alkaline Phosphatase Lactate Dehydrogenase 949 H Total Creatine Kinase C-Reactive Protein 23.00 H Albumin Lipase Ur Specific [place] 01/18/21 01/18/21 01/18/21 14:47 15:03 18:31 WBC MCV Seg Neuts % (Manual) Lymphocytes % (Manual) Seg Neutrophils # Man Lymphocytes # (Manual) D-Dimer Sodium 135 L Potassium Chloride Carbon Dioxide 21 L BUN 25 H Creatinine 1.5 H Glucose Calcium Ferritin 502.1 H AST 304 H ALT 98 H Alkaline Phosphatase 139 H Lactate Dehydrogenase Total Creatine Kinase C-Reactive Protein Albumin 3.8 L Lipase 7 L Ur Specific [place] 1.050 H 01/19/21 01/19/21 01/21/21 11:50 15:22 04:27 WBC 26.3 H 11.8 H MCV 95 H Seg Neuts % (Manual) 96.0 H Lymphocytes % (Manual) 4.0 L Seg Neutrophils # Man 25.2 H Lymphocytes # (Manual) 1.1 L D-Dimer Sodium 133 L Potassium Chloride 96.5 L Carbon Dioxide BUN 27 H Creatinine Glucose 106 H Calcium 8.3 L Ferritin AST ALT Alkaline Phosphatase Lactate Dehydrogenase Total Creatine Kinase C-Reactive Protein Albumin Lipase Ur Specific [place] 01/21/21 01/21/21 01/21/21 04:27 10:30 10:30 WBC MCV Seg Neuts % (Manual) Lymphocytes % (Manual) Seg Neutrophils # Man Lymphocytes # (Manual) D-Dimer 9685.34 H Sodium 136 L Potassium 5.5 H Chloride Carbon Dioxide BUN Creatinine Glucose 118 H 135 H Calcium Ferritin AST ALT Alkaline Phosphatase Lactate Dehydrogenase 668 H Total Creatine Kinase C-Reactive Protein 6.80 H Albumin Lipase Ur Specific [place] 01/21/21 01/22/21 01/22/21 10:30 04:14 10:11 WBC MCV Seg Neuts % (Manual) Lymphocytes % (Manual) Seg Neutrophils # Man Lymphocytes # (Manual) D-Dimer 7825.56 H Sodium Potassium Chloride Carbon Dioxide BUN 24 H Creatinine Glucose 122 H Calcium Ferritin 517.7 H AST ALT 71 H Alkaline Phosphatase Lactate Dehydrogenase Total Creatine Kinase C-Reactive Protein Albumin 3.6 L Lipase Ur Specific [place] 01/23/21 06:14 WBC MCV Seg Neuts % (Manual) Lymphocytes % (Manual) Seg Neutrophils # Man Lymphocytes # (Manual) D-Dimer Sodium Potassium Chloride Carbon Dioxide BUN Creatinine Glucose Calcium Ferritin AST ALT Alkaline Phosphatase Lactate Dehydrogenase Total Creatine Kinase 218 H C-Reactive Protein Albumin Lipase Ur Specific [place]
--- NOTE | 2021-01-24 18:09 | Progress Note ---
Assessment and Plan Assessment and plan: --Acute gastritis/-odynophagia; GI evaluation noted and appreciated Status post EGD: IMPRESSION: 1. Moderately severe esophagitis. However, unlikely source of patient's pain/symptoms on admission. No obvious explanation of patient's pain seen during procedure RECOMMENDATIONS: -PPI BID dosing and carafate TID, diet as tolerated -repeat EGD in 6-8 weeks to assess healing and rule out underlying ashley's -- Sepsis due to bilateral pneumonia Current Visit: Yes Status: Acute . Plan to address problem: Completed antibiotics per ID -- Acute respiratory failure with hypoxia Current Visit: Yes Status: Acute Plan to address problem: Supplemental oxygen, pulse oximetry, nebulizer therapy, chest x-ray, CT scan chest, pulmonary toilet, if patient is unable to maintain pulse oximetry greater than 80% on submental oxygen will transition patient to high flow submental oxygen. -- Bilateral pneumonia Current Visit: Yes Status: Acute Plan to address problem: Pneumonia protocol: Oxygen titrate O2 sats to more than 90% Completed total 5 days Rocephin recommended by ID Home O2 evaluation at discharge, resting room air 99% --Elevated liver enzymes Secondary to alcoholic liver disease Current Visit: Yes Status: Acute Plan to address problem: Trending down, GI evaluated Follow-up upon discharge -- EtOH use disorder with possible underlying withdrawal Current Visit: Yes Status: Acute Plan to address problem: Patient was on CIWA protocol No new episodes of withdrawal symptoms, Ativan as needed --Hypercoagulable state Current Visit: Yes Status: Acute . Plan to address problem: Closely monitor, follow hematology upon discharge -- Hyperkalemia Current Visit: Yes Status: Acute. Plan to address problem: Present on admission , resolved -- DVT prophylaxis Current Visit: Yes Status: Acute Plan to address problem: SCD to bilateral lower extremities while in bed, prophylactic anticoagula. Will monitor closely and adjust management as needed Possible discharge home tomorrow if stable History Interval history: I have seen and examined the patient at the bedside Patient's chart and medications reviewed Patient complains of severe pain, asking for more pain medications Vital signs noted Hospitalist Physical - Constitutional Vitals: Temp Pulse Resp BP Pulse Ox 98.0 F 88 20 125/82 94 01/24/21 17:30 01/24/21 17:30 01/24/21 17:30 01/24/21 17:30 01/24/21 17:30 General appearance: Present: mild distress, well-nourished, cachectic - EENT Eyes: Present: PERRL, EOM intact - Neck Neck: Present: supple, normal ROM - Respiratory Respiratory effort: normal Respiratory: bilateral: diminished, negative: rales, rhonchi, wheezing - Cardiovascular Rhythm: regular Heart Sounds: Present: S1 & S2 - Extremities Extremities: no ischemia, No edema - Abdominal General gastrointestinal: soft, non-tender, non-distended, normal bowel sounds - Integumentary Integumentary: Present: clear, warm - Psychiatric Psychiatric: appropriate mood/affect, cooperative - Neurologic Neurologic: CNII-XII intact, moves all extremities Results - Labs CBC & Chem 7: 01/22/21 04:14 01/22/21 04:14 Labs: Laboratory Last Values WBC 10.7 K/mm3 (4.5-11.0) 01/22/21 04:14 RBC 4.07 M/mm3 (3.65-5.03) 01/22/21 04:14 Hgb 12.9 gm/dl (11.8-15.2) 01/22/21 04:14 Hct 38.3 % (35.5-45.6) D 01/22/21 04:14 MCV 94 fl (84-94) 01/22/21 04:14 MCH 32 pg (28-32) 01/22/21 04:14 MCHC 34 % (32-34) 01/22/21 04:14 RDW 13.4 % (13.2-15.2) 01/22/21 04:14 Plt Count 174 K/mm3 (140-440) 01/22/21 04:14 Add Manual Diff Complete 01/19/21 11:50 Total Counted 100 01/19/21 11:50 Seg Neutrophils % Director Trial 01/19/21 11:50 Seg Neuts % (Manual) 96.0 % (40.0-70.0) H 01/19/21 11:50 Lymphocytes % (Manual) 4.0 % (13.4-35.0) L 01/19/21 11:50 Monocytes % (Manual) 3.0 % (0.0-7.3) 01/18/21 13:32 Nucleated RBC % Not Reportable 01/19/21 11:50 Seg Neutrophils # Man 25.2 K/mm3 (1.8-7.7) H 01/19/21 11:50 Band Neutrophils # 0.0 K/mm3 01/19/21 11:50 Lymphocytes # (Manual) 1.1 K/mm3 (1.2-5.4) L 01/19/21 11:50 Abs React Lymphs (Man) 0.0 K/mm3 01/19/21 11:50 Monocytes # (Manual) 0.0 K/mm3 (0.0-0.8) 01/19/21 11:50 Eosinophils # (Manual) 0.0 K/mm3 (0.0-0.4) 01/19/21 11:50 Basophils # (Manual) 0.0 K/mm3 (0.0-0.1) 01/19/21 11:50 Metamyelocytes # 0.0 K/mm3 01/19/21 11:50 Myelocytes # 0.0 K/mm3 01/19/21 11:50 Promyelocytes # 0.0 K/mm3 01/19/21 11:50 Blast Cells # 0.0 K/mm3 01/19/21 11:50 WBC Morphology Not Reportable 01/19/21 11:50 Hypersegmented Neuts Not Reportable 01/19/21 11:50 Hyposegmented Neuts Not Reportable 01/19/21 11:50 Hypogranular Neuts Not Reportable 01/19/21 11:50 Smudge Cells Not Reportable 01/19/21 11:50 Toxic Granulation Not Reportable 01/19/21 11:50 Toxic Vacuolation Not Reportable 01/19/21 11:50 Dohle Bodies Not Reportable 01/19/21 11:50 Pelger-Huet Anomaly Not Reportable 01/19/21 11:50 Ricco Rods Not Reportable 01/19/21 11:50 Platelet Estimate Consistent w auto 01/19/21 11:50 Clumped Platelets Not Reportable 01/19/21 11:50 Plt Clumps, EDTA Not Reportable 01/19/21 11:50 Large Platelets Not Reportable 01/19/21 11:50 Giant Platelets Not Reportable 01/19/21 11:50 Platelet Satelliting Not Reportable 01/19/21 11:50 Plt Morphology Comment Not Reportable 01/19/21 11:50 RBC Morphology Normal 01/19/21 11:50 Dimorphic RBCs Not Reportable 01/19/21 11:50 Polychromasia Not Reportable 01/19/21 11:50 Hypochromasia Not Reportable 01/19/21 11:50 Poikilocytosis Not Reportable 01/19/21 11:50 Anisocytosis Not Reportable 01/19/21 11:50 Microcytosis Not Reportable 01/19/21 11:50 Macrocytosis Not Reportable 01/19/21 11:50 Spherocytes Not Reportable 01/19/21 11:50 Pappenheimer Bodies Not Reportable 01/19/21 11:50 Sickle Cells Not Reportable 01/19/21 11:50 Target Cells Not Reportable 01/19/21 11:50 Tear Drop Cells Not Reportable 01/19/21 11:50 Ovalocytes Not Reportable 01/19/21 11:50 Helmet Cells Not Reportable 01/19/21 11:50 [place] Bodies Not Reportable 01/19/21 11:50 [place] Rings Not Reportable 01/19/21 11:50 Karthik Cells Not Reportable 01/19/21 11:50 Bite Cells Not Reportable 01/19/21 11:50 Crenated Cell Not Reportable 01/19/21 11:50 Elliptocytes Not Reportable 01/19/21 11:50 Acanthocytes (Spur) Not Reportable 01/19/21 11:50 Rouleaux Not Reportable 01/19/21 11:50 Hemoglobin C Crystals Not Reportable 01/19/21 11:50 Schistocytes Not Reportable 01/19/21 11:50 Malaria parasites Not Reportable 01/19/21 11:50 Danny Bodies Not Reportable 01/19/21 11:50 Hem Pathologist Commnt No 01/19/21 11:50 D-Dimer 7825.56 ng/mlDDU (0-234) H 01/22/21 10:11 Sodium 137 mmol/L (137-145) 01/22/21 04:14 Potassium 4.4 mmol/L (3.6-5.0) 01/22/21 04:14 Chloride 98.9 mmol/L (98-107) 01/22/21 04:14 Carbon Dioxide 28 mmol/L (22-30) 01/22/21 04:14 Anion Gap 15 mmol/L 01/22/21 04:14 BUN 24 mg/dL (9-20) H 01/22/21 04:14 Creatinine 1.1 mg/dL (0.8-1.3) 01/22/21 04:14 Estimated GFR > 60 ml/min 01/22/21 04:14 BUN/Creatinine Ratio 22 % 01/22/21 04:14 Glucose 122 mg/dL (75-100) H 01/22/21 04:14 Lactic Acid 1.30 mmol/L (0.7-2.0) 01/18/21 21:36 Calcium 8.5 mg/dL (8.4-10.2) 01/22/21 04:14 Ferritin 517.7 ng/mL (30.0-300.0) H 01/21/21 10:30 Total Bilirubin 0.50 mg/dL (0.1-1.2) 01/22/21 04:14 AST 39 units/L (5-40) 01/22/21 04:14 ALT 71 units/L (7-56) H 01/22/21 04:14 Alkaline Phosphatase 69 units/L (35-129) 01/22/21 04:14 Lactate Dehydrogenase 668 units/L (91-180) H 01/21/21 10:30 Total Creatine Kinase 218 units/L (55-170) H 01/23/21 06:14 C-Reactive Protein 6.80 mg/dL (0.00-1.30) H 01/21/21 10:30 Total Protein 6.7 g/dL (6.3-8.2) 01/22/21 04:14 Albumin 3.6 g/dL (3.9-5) L 01/22/21 04:14 Albumin/Globulin Ratio 1.2 % 01/22/21 04:14 Lipase 7 units/L (13-60) L 01/18/21 15:03 Procalcitonin 0.32 ng/mL (<0.15) 01/21/21 10:30 Urine Color Yellow (Yellow) 01/18/21 18:31 Urine Turbidity Clear (Clear) 01/18/21 18:31 Urine pH 5.0 (5.0-7.0) 01/18/21 18:31 Ur Specific [place] 1.050 (1.003-1.030) H 01/18/21 18:31 Urine Protein 30 mg/dl mg/dL (Negative) 01/18/21 18:31 Urine Glucose (UA) Neg mg/dL (Negative) 01/18/21 18: Urine Ketones 20 mg/dL (Negative) 01/18/21 18:31 Urine Blood Sm (Negative) 01/18/21 18:31 Urine Nitrite Neg (Negative) 01/18/21 18: Urine Bilirubin Neg (Negative) 01/18/21 18: Urine Urobilinogen < 2.0 mg/dL (<2.0) 01/18/21 18:31 Ur Leukocyte Esterase Neg (Negative) 01/18/21 18: Urine WBC (Auto) 1.0 /HPF (0.0-6.0) 01/18/21 18: Urine RBC (Auto) 3.0 /HPF (0.0-6.0) 01/18/21 18: U Epithel Cells (Auto) 1.0 /HPF (0-13.0) 01/18/21 18: Urine Mucus 1+ /HPF 01/18/21 18:31 Coronavirus (PCR) Negative (Negative) 01/21/21 08:02 HIV 1&2 Antibody Rapid Non react (Non React) 01/18/21 21:36 HIV P24 Antigen Non react (Non React) 01/18/21 21:36 Microbiology: Microbiology 01/18/21 14:52 Peripheral/Venous Blood Culture - Final NO GROWTH AFTER 5 DAYS 01/18/21 14:47 Peripheral/Venous Blood Culture - Final NO GROWTH AFTER 5 DAYS Gomes/IV: Voiding Method Urinal Active Medications - Current Medications Current Medications: Generic Name Dose Route Start Last Admin Trade Name Freq PRN Reason Stop Dose Admin Acetaminophen 650 mg 01/18/21 17:19 Acetaminophen 325 Mg Tab PO Q4H PRN Pain MILD(1-3)/Fever >100.5/[place] Albuterol 2.5 mg 01/18/21 17:19 01/20/21 15:05 Albuterol 2.5 Mg/3 Ml Nebu IH 2.5 mg Q4HRT PRN Administration Shortness Of Breath Albuterol/Ipratropium 1 ampul 01/23/21 08:00 01/24/21 13:03 Ipratropium/Albuterol Sulfate 3 Ml Ampul.Neb IH 1 ampul TIDRT LEE Administration Ascorbic Acid 500 mg 01/18/21 22:00 01/24/21 10:41 Ascorbic Acid 500 Mg Tab PO Not Given BID LEE Chlordiazepoxide HCl 50 mg 01/19/21 10:07 Chlordiazepoxide 25 Mg Cap PO Q1HR PRN [facility] 8-15 Cholecalciferol 1,000 unit 01/19/21 10:00 01/24/21 10:41 Cholecalciferol (Vit D3) 1000 Unit (25 Mcg) Tab PO Not Given [facility] Cyanocobalamin 1,000 mcg 01/19/21 11:00 01/24/21 10:41 Cyanocobalamin (Vit B-12) 1000 Mcg Tab PO Not Given [facility] Enoxaparin Sodium 40 mg 01/23/21 10:00 01/24/21 10:41 Enoxaparin 40 Mg/0.4 Ml Inj SUB-Q Not Given [facility] Protocol Folic Acid 1 mg 01/19/21 11:00 01/24/21 10:41 Folic Acid 1 Mg Tab PO Not Given [facility] Hydromorphone HCl 0.25 mg 01/18/21 17:24 01/24/21 12:20 Hydromorphone 1 Mg/1 Ml Inj IV 0.25 mg Q4H PRN Administration Pain, Moderate (4-6) Thiamine HCl 100 mg/ Sodium 51 mls @ 100 mls/hr 01/22/21 10:00 01/24/21 10:40 Chloride IV Not Given [facility] Sodium Chloride 1,000 mls @ 50 mls/hr 01/23/21 10:00 01/23/21 20:41 Nacl 0.9% 1000 Ml IV 50 mls/hr DIRECT LEE Administration Lorazepam 2 mg 01/19/21 10:07 01/24/21 00:18 Lorazepam 2 Mg/Ml Vial IV 2 mg Q4H PRN Administration [facility] 07-15 Lorazepam 2 mg 01/22/21 10:00 Lorazepam 2 Mg/Ml Vial IM Q4H PRN Agitation Methylprednisolone Sodium Succinate 20 mg 01/23/21 19:29 01/24/21 04:56 Methylprednisolone Sod Succinate 40 Mg/1 Ml Inj IV 20 mg Q8H LEE Administration Metoclopramide HCl 10 mg 01/19/21 14:50 Metoclopramide 10 Mg/2 Ml Inj IV Q6H PRN Nausea And Vomiting Nicotine 21 mg 01/21/21 17:00 01/24/21 10:41 Nicotine 21 Mg/24 Hr Patch TD Not Given QDAY LEE Ondansetron HCl 4 mg 01/19/21 14:49 01/24/21 07:30 Ondansetron 4 Mg/2 Ml Inj IV 4 mg Q4H PRN Administration Nausea And Vomiting Pantoprazole Sodium 40 mg 01/24/21 16:30 Pantoprazole 40 Mg Tab PO BIDAC LEE Sodium Chloride 10 ml 01/18/21 22:00 01/24/21 10:41 Sodium Chloride 0.9% 10 Ml Flush Syringe IV Not Given BID LEE Sodium Chloride 10 ml 01/18/21 17:19 01/24/21 04:57 Sodium Chloride 0.9% 10 Ml Flush Syringe IV 10 ml PRN PRN Administration LINE FLUSH Sucralfate 1 gm 01/23/21 16:30 01/24/21 12:28 Sucralfate 1 Gm/10 Ml Oral Liqd PO 1 gm AC LEE Administration Valproic Acid 250 mg 01/20/21 22:00 01/24/21 10:41 Valproic Acid 250 Mg/5 Ml Oral Liqd PO Not Given BID LEE Zinc Sulfate 220 mg 01/18/21 22:00 01/24/21 10:41 Zinc Sulfate 220 Mg Cap PO Not Given BID LEE Ziprasidone 20 mg 01/22/21 10:00 01/24/21 10:41 Ziprasidone 20 Mg Cap PO Not Given [facility] Nutrition/Malnutrition Assess - Dietary Evaluation Nutrition/Malnutrition Findings: Nutrition Notes Start: 01/19/21 12:04 Freq: Status: Active Protocol: Document 01/24/21 13:04 AL (Rec: 01/24/21 13:12 AL [id number]) Co-Sign 01/24/21 13:04 LP Nutrition Notes Initial or Follow up Brief Note Current Diagnosis Acute Kidney Injury,Sepsis, Respiratory Failure Other Pertinent Diagnosis Bilat Pneu, hx duodenal and gastric ulcers, Gallstones, ETOH dep Current Diet NPO Subjective/Other Information F/U for po intake and need for ONS. Pt still NPO. Percent of energy/protein needs met: 0%/0% Nutrition Intervention Anticipated Discharge Needs: Cardiac Diet Follow-Up By: 01/26/21 Additional Comments F/U for diet advancement and need for ONS
[2021-01-24] MEDS: PANTOPRAZOLE 40 MG TAB PO SCH ×2 (18:20→18:28)
[2021-01-24] MEDS ORDERED: HYDROmorphone 1 MG/1 ML INJ IV PRN (18:26)
[2021-01-24] MEDS ORDERED: KETOROLAC 30 MG/1 ML INJ IV PRN (18:30)
[2021-01-24] MEDS: oxyCODONE /ACETAMINOPHEN 5-325MG TAB PO PRN (23:06)
[2021-01-25] MEDS: IPRATROPIUM/ALBUTEROL SULFATE 3 ML AMPUL.NEB IH SCH ×2 (08:00→13:08)
[2021-01-25 08:32] VITALS: BP 131/93
--- NOTE | 2021-01-25 09:07 | XRay Report ---
CHEST 1 VIEW INDICATION: f/u pneumonia. COMPARISON: 01/18/2021 FINDINGS: Support devices: None. Heart: Within normal limits. Lungs/Pleura: Airspace opacity in the lingula and right middle lobe have resolved. There are however new bibasilar atelectatic changes. The upper lung zones are clear. No pleural effusion or pneumothora x. Additional findings: None. IMPRESSION: Improvement in the lingular and right middle lobe opacities. New bibasilar atelectatic changes. Signer Name: Jasper Knight Jr, MD Signed: 01/25/2021 9:02 AM Workstation Name: [id number]
--- NOTE | 2021-01-25 09:51 | Discharge Summary ---
Providers - Providers Date of Admission: 01/18/21 17:19 Date of discharge: 01/25/21 Attending physician: SUSANNAH NOLAN 01/19/21 07:18 Consult to Physician [CONS] Routine Comment: Consulting Provider: LORENZO GIL Physician Instructions: Reason For Exam: Acute respiratory failure with hypoxia, Pneumonia 01/19/21 08:14 Consult to Physician [CONS] Routine Comment: Consulting Provider: RAQUEL RUCKER Physician Instructions: Reason For Exam: abdominal pain 01/19/21 10:17 Consult to Physician [CONS] Routine Comment: Consulting Provider: KENDRA VITALE Physician Instructions: Reason For Exam: ATYPICAL PNEUMONIA 01/20/21 09:47 Consult to Physician [CONS] Routine Comment: Consulting Provider: MAR LOMAS Physician Instructions: Reason For Exam: abdominal pain 01/20/21 10:39 Consult to Physician [CONS] Routine Comment: Consulting Provider: LENIN QUEZADA Physician Instructions: Reason For Exam: Hypoactive delirium 01/21/21 11:37 PICC Line Insertion [Consult to PICC Line RN] [CONS] Urgent Reason For Exam: Pt can not retain peripheral IV Type Line:: Midline 01/22/21 07:57 Consult to Physician [CONS] Routine Comment: Consulting Provider: JUAN COSTA Physician Instructions: Reason For Exam: coagulopathy unknown etiology Primary care physician: CANDY STARCH MOLD PRINTER Hospitalization Condition: Stable Hospital course: --Acute gastritis/-odynophagia; GI evaluation noted and appreciated Status post EGD: IMPRESSION: 1. Moderately severe esophagitis. However, unlikely source of patient's pain/symptoms on admission. No obvious explanation of patient's pain seen during procedure RECOMMENDATIONS: -PPI BID dosing and carafate TID, diet as tolerated -repeat EGD in 6-8 weeks to assess healing and rule out underlying ashley's -- Sepsis due to bilateral pneumonia Current Visit: Yes Status: Acute . Plan to address problem: Completed antibiotics per ID -- Acute respiratory failure with hypoxia Current Visit: Yes Status: Acute Plan to address problem: Supplemental oxygen, pulse oximetry, nebulizer therapy, chest x-ray, CT scan chest, pulmonary toilet, if patient is unable to maintain pulse oximetry greater than 80% on submental oxygen will transition patient to high flow submental oxygen. -- Bilateral pneumonia Current Visit: Yes Status: Acute Plan to address problem: Pneumonia protocol: Oxygen titrate O2 sats to more than 90% Completed total 5 days Rocephin recommended by ID Home O2 evaluation at discharge, resting room air 99% --Elevated liver enzymes Secondary to alcoholic liver disease Current Visit: Yes Status: Acute Plan to address problem: Trending down, GI evaluated Follow-up upon discharge -- EtOH use disorder with possible underlying withdrawal Current Visit: Yes Status: Acute Plan to address problem: Patient was on CIWA protocol No new episodes of withdrawal symptoms, Ativan as needed --Hypercoagulable state Current Visit: Yes Status: Acute . Plan to address problem: Closely monitor, follow hematology upon discharge -- Hyperkalemia Current Visit: Yes Status: Acute. Plan to address problem: Present on admission , resolved Disposition: DC-01 TO HOME OR SELFCARE Time spent for discharge: 34 min Exam - Constitutional Vitals: Temp Pulse Resp BP Pulse Ox 98.6 F 88 18 131/93 96 01/25/21 08:30 01/25/21 08:30 01/25/21 08:30 01/25/21 08:30 01/25/21 08:31 Plan Activity: no restrictions Diet: advance as tolerated, other (Full liquid diet) Additional Instructions: Advised to follow primary care physician, GI and pulmonary per schedule. If you have worsening symptoms contact MD or go to emergency room. Advised smoking cessation Follow up with: PRIMARY CARE, [Primary Care Provider] - 3-5 Days EDITA DESHPANDE MD [Staff Physician] - 7 Days FRANCISCA COLEMAN MD [Staff Physician] - 14 Days Prescriptions: Sucralfate [Carafate] 1 gm PO AC 30 Days oral.liqd Folic Acid [Folvite] 1 mg PO QDAY #30 tablet Nicotine [Habitrol] 14 mg TD DAILY #30 patch Nicotine [Habitrol] 21 mg TD QDAY #30 patch Pantoprazole [Protonix TAB] 40 mg PO BIDAC #60 tablet
[2021-01-25] MEDS ORDERED: predniSONE 20 MG TAB PO SCH (10:00)
[2021-01-25] MEDS: VALPROIC ACID 250 MG/5 ML ORAL LIQD PO SCH (10:18)
[2021-01-25] MEDS: ENOXAPARIN 40 MG/0.4 ML INJ SUB-Q SCH (10:18)
[2021-01-25] MEDS: ZIPRASIDONE 20 MG CAP PO SCH (10:19)
[2021-01-25] MEDS: SUCRALFATE 1 GM/10 ML ORAL LIQD PO SCH (10:19)
[2021-01-25] MEDS: CHOLECALCIFEROL (VIT D3) 1000 UNIT (25 mcg) TAB PO SCH (10:19)
[2021-01-25] MEDS: CYANOCOBALAMIN (VIT B-12) 1000 MCG TAB PO SCH (10:19)
[2021-01-25] MEDS: NICOTINE 21 MG/24 HR PATCH TD SCH (10:20)
[2021-01-25] MEDS: FOLIC ACID 1 MG TAB PO SCH (10:21)
[2021-01-25] MEDS: THIAMINE 100 MG in SODIUM CHLORIDE 0.9% 50 ML IV SCH (10:27)
[2021-01-25] MEDS: ASCORBIC ACID 500 MG TAB PO SCH (10:28)
[2021-01-25] MEDS: ZINC SULFATE 220 MG CAP PO SCH (10:28)
--- NOTE | 2021-01-25 12:49 | Progress Note ---
Assessment and Plan Acute hypoxemic respiratory failure. Person under investigation for COVID-19 infection. Abnormal chest x-ray. Bilateral pneumonia. Possible interstitial lung disease versus acute infectious process. Elevated liver enzymes. History of alcohol abuse with possible withdrawal. Leukocytosis. Elevated serum inflammatory markers including D-dimers and ferritin levels. Acute kidney injury. Left flank pain/left upper quadrant pain - follow COVID-19 test result - continue CIWA protocol - Psych evaluation ongoing - continue to wean supplemental oxygen to keep O2 sats > 92% - continue Bronchodilators (EDELMIRA & LABA) with pulm hygiene per RT - continue to avoid nephrotoxins, renally dose all medications - continue mobility protocols to prevent pressure ulcers - PT/OT as tolerated - prn analgesia per pain score - Wound care per RN/WCT - with glycemic control per SSI for target blood glucose < 180 mg/dL - Smoking cessation strongly counseled at the bedside - home oxygen evaluation at discharge - GI & VTE prophylaxis - Flu & pneumovax per protocol - Pulmonary out patient follow up for PFTs and optimization of respiratory status - continue other care per attending / other consultants COVID-19 SPECIFIC INTERVENTIONS: - Remdesivir as per ID/Pulmonary developed protocols (await COVID test result) - continue systemic steroids empirically - follow repeat COVID tests results - zinc and vitamin C supplementation - Monitor inflammatory markers per facility protocol - ferritin, D-dimer, CRP - therapeutic anticoagulation per system Protocol based on d-dimer and clinical considerations - Continue contact and airborne isolation ... re-evaluate in am & prn Subjective Date of service: 01/25/21 Principal diagnosis: Ac hypoxemic resp failure; PUI COVID-19; Vicente pneumonia; ? ILD; KAYLA Interval history: Patient is seen today for: Acute hypoxemic respiratory failure; PUI COVID-19 infection; Bilateral pneumonia; Possible interstitial lung disease versus acute infectious process; H/O EtOH abuse; KAYLA; Left flank pain/left upper quadrant pain Seen and examined at bedside; 24hour events reviewed; nursing and respiratory care staff consulted; no adverse overnight events reported to me; resting in bed; Objective Vital Signs - 12hr 01/25/21 01/25/21 01/25/21 04:58 08:00 08:30 Temperature 98.5 F 98.6 F Pulse Rate 79 88 Pulse Rate [ 72 Anterior Bilateral Throughout] Pulse Rate [ 73 Posterior Bilateral Throughout] Respiratory 18 18 Rate Respiratory 18 Rate [Anterior Bilateral Throughout] Respiratory 18 Rate [Posterior Bilateral Throughout] Blood Pressure 128/84 131/93 O2 Sat by Pulse 93 95 Oximetry 01/25/21 08:31 Temperature Pulse Rate Pulse Rate [ Anterior Bilateral Throughout] Pulse Rate [ Posterior Bilateral Throughout] Respiratory Rate Respiratory Rate [Anterior Bilateral Throughout] Respiratory Rate [Posterior Bilateral Throughout] Blood Pressure O2 Sat by Pulse 96 Oximetry Constitutional: no acute distress Eyes: non-icteric ENT: oropharynx moist Neck: supple Effort: normal Ascultation: Bilateral: rhonchi (scant) Percussion: Bilateral: not dull Cardiovascular: regular rate and rhythm Gastrointestinal: normoactive bowel sounds, soft, non-tender, non-distended Integumentary: normal Extremities: no cyanosis, no edema, pulses normal, no ischemia or petechiae Neurologic: non-focal exam, pupils equal and round, CN II-XII normal, motor strength normal and Psychiatric: anxious CBC and BMP: 01/22/21 04:14 01/22/21 04:14 ABG, PT/INR, D-dimer: PT/INR, D-dimer D-Dimer 7825.56 ng/mlDDU (0-234) H 01/22/21 10:11 Abnormal lab findings: Abnormal Labs 01/18/21 01/18/21 01/18/21 13:32 14:47 14:47 WBC 20.9 H MCV Seg Neuts % (Manual) 92.0 H Lymphocytes % (Manual) 5.0 L Seg Neutrophils # Man 19.2 H Lymphocytes # (Manual) 1.0 L D-Dimer 869.63 H Sodium Potassium Chloride Carbon Dioxide BUN Creatinine Glucose 102 H Calcium Ferritin AST ALT Alkaline Phosphatase Lactate Dehydrogenase 949 H Total Creatine Kinase C-Reactive Protein 23.00 H Albumin Lipase Ur Specific Lando 01/18/21 01/18/21 01/18/21 14:47 15:03 18:31 WBC MCV Seg Neuts % (Manual) Lymphocytes % (Manual) Seg Neutrophils # Man Lymphocytes # (Manual) D-Dimer Sodium 135 L Potassium Chloride Carbon Dioxide 21 L BUN 25 H Creatinine 1.5 H Glucose Calcium Ferritin 502.1 H AST 304 H ALT 98 H Alkaline Phosphatase 139 H Lactate Dehydrogenase Total Creatine Kinase C-Reactive Protein Albumin 3.8 L Lipase 7 L Ur Specific Lando 1.050 H 01/19/21 01/19/21 01/21/21 11:50 15:22 04:27 WBC 26.3 H 11.8 H MCV 95 H Seg Neuts % (Manual) 96.0 H Lymphocytes % (Manual) 4.0 L Seg Neutrophils # Man 25.2 H Lymphocytes # (Manual) 1.1 L D-Dimer Sodium 133 L Potassium Chloride 96.5 L Carbon Dioxide BUN 27 H Creatinine Glucose 106 H Calcium 8.3 L Ferritin AST ALT Alkaline Phosphatase Lactate Dehydrogenase Total Creatine Kinase C-Reactive Protein Albumin Lipase Ur Specific Lando 01/21/21 01/21/21 01/21/21 04:27 10:30 10:30 WBC MCV Seg Neuts % (Manual) Lymphocytes % (Manual) Seg Neutrophils # Man Lymphocytes # (Manual) D-Dimer 9685.34 H Sodium 136 L Potassium 5.5 H Chloride Carbon Dioxide BUN Creatinine Glucose 118 H 135 H Calcium Ferritin AST ALT Alkaline Phosphatase Lactate Dehydrogenase 668 H Total Creatine Kinase C-Reactive Protein 6.80 H Albumin Lipase Ur Specific Lando 01/21/21 01/22/21 01/22/21 10:30 04:14 10:11 WBC MCV Seg Neuts % (Manual) Lymphocytes % (Manual) Seg Neutrophils # Man Lymphocytes # (Manual) D-Dimer 7825.56 H Sodium Potassium Chloride Carbon Dioxide BUN 24 H Creatinine Glucose 122 H Calcium Ferritin 517.7 H AST ALT 71 H Alkaline Phosphatase Lactate Dehydrogenase Total Creatine Kinase C-Reactive Protein Albumin 3.6 L Lipase Ur Specific Lando 01/23/21 06:14 WBC MCV Seg Neuts % (Manual) Lymphocytes % (Manual) Seg Neutrophils # Man Lymphocytes # (Manual) D-Dimer Sodium Potassium Chloride Carbon Dioxide BUN Creatinine Glucose Calcium Ferritin AST ALT Alkaline Phosphatase Lactate Dehydrogenase Total Creatine Kinase 218 H C-Reactive Protein Albumin Lipase Ur Specific Lando Allied health notes reviewed: nursing
[2021-01-25] MEDS: oxyCODONE /ACETAMINOPHEN 5-325MG TAB PO PRN (16:00)
== END 2021-01-25 14:50 | disposition home or self-care (01) | DRG 871 ==
LOC: ED 12:51 → 3A 17:19 → 4A 01-19 17:49
PROVIDERS: ADMIT Internal Medicine; ATTEND Internal Medicine
PROC: 05HY33Z Insertion of Infusion Device into Upper Vein, Percutaneous Approach (ICD-10-PCS; 2021-01-21)
PROC: 0DJ08ZZ Inspection of Upper Intestinal Tract, Via Natural or Artificial Opening Endoscopic (ICD-10-PCS; principal; 2021-01-23)
DX: A41.9 Sepsis, unspecified organism (principal); J18.9 Pneumonia, unspecified organism; J96.01 Acute respiratory failure with hypoxia; D68.59 Other primary thrombophilia; N17.9 Acute kidney failure, unspecified; K29.00 Acute gastritis without bleeding; Z20.822 Contact with and (suspected) exposure to COVID-19; R13.10 Dysphagia, unspecified; E87.5 Hyperkalemia; K70.9 Alcoholic liver disease, unspecified; K20.90 Esophagitis, unspecified without bleeding; K21.9 Gastro-esophageal reflux disease without esophagitis; F17.200 Nicotine dependence, unspecified, uncomplicated; F12.90 Cannabis use, unspecified, uncomplicated; J45.909 Unspecified asthma, uncomplicated; K44.9 Diaphragmatic hernia without obstruction or gangrene; Z72.89 Other problems related to lifestyle; Z88.6 Allergy status to analgesic agent; Z79.899 Other long term (current) drug therapy; Z82.49 Family history of ischemic heart disease and other diseases of the circulatory system; Z87.442 Personal history of urinary calculi
CPT/HCPCS: 36415; 71045; 71275; 74176; 74177; 76770; 80048; 80053; 81001; 82140; 82550; 82728; 82947; 83615; 83690; 84145; 85007; 85025; 85027; 85379; 86140; 87040; 87806; 93005; 93970; 94640; 94644; 94760; 96361; 96365; 96367; 96372; 96375; 96376; 99406; G0378; C9113; J0456; J0696; J1100; J1170; J1644; J1650; J1885; J1940; J2060; J2405; J2704; J2765; J2920; J3411; J3486; J7030; J7512; Q9967; U0003